=== PATIENT | female | born 1930 | race Caucasian/White ===

== ENCOUNTER 2017-01-16 09:59 | Day surgery (SDC) | payer OTHER, MEDICAID ==
[2017-01-16] MEDS ORDERED: D5 LR 1000 ML 1,000 ML IV ONE (10:20)
[2017-01-16] MEDS ORDERED: DIPRIVAN VIAL 20 ML ONE (11:31)
[2017-01-16 12:29] VITALS: BP 124/61
== END 2017-01-16 12:15 | disposition home or self-care (01) ==
LOC: SURG1 09:59
PROVIDERS: ATTEND Internal Medicine Gastroenterology
PROC: 0D757ZZ Dilation of Esophagus, Via Natural or Artificial Opening (ICD-10-PCS; principal; 2017-01-16 13:00)
PROC: 0DJ08ZZ Inspection of Upper Intestinal Tract, Via Natural or Artificial Opening Endoscopic (ICD-10-PCS; principal; 2017-01-16 13:00)
PROC: 0DB68ZX Excision of Stomach, Via Natural or Artificial Opening Endoscopic, Diagnostic (ICD-10-PCS; principal; 2017-01-16 13:00)
PROC: 0DB88ZX Excision of Small Intestine, Via Natural or Artificial Opening Endoscopic, Diagnostic (ICD-10-PCS; principal; 2017-01-16 13:00)
DX: R13.19 Other dysphagia (principal); R10.13 Epigastric pain; R19.7 Diarrhea, unspecified; R07.89 Other chest pain; K22.4 Dyskinesia of esophagus; K20.8 Other esophagitis; K22.2 Esophageal obstruction; K44.9 Diaphragmatic hernia without obstruction or gangrene; Z87.19 Personal history of other diseases of the digestive system; K25.9 Gastric ulcer, unspecified as acute or chronic, without hemorrhage or perforation
CPT/HCPCS: A4217; J3490; J7120

== ENCOUNTER 2017-10-16 14:14 | Inpatient (IN) | payer OTHER, MEDICAID ==
[2017-10-16 14:20] VITALS: BMI 22.4
[2017-10-16] MEDS ORDERED: MORPHINE SULFATE INJ 2 MG INJ IVP ONE (15:24)
[2017-10-16] MEDS ORDERED: ZOFRAN INJ 4 MG VIAL IVP ONE (15:25)
[2017-10-16] MEDS ORDERED: ZOFRAN INJ 4 MG VIAL ONE (15:42)
[2017-10-16] MEDS ORDERED: MORPHINE SULFATE INJ 2 MG INJ ONE (15:42)
--- NOTE | 2017-10-16 16:22 | DR.FBACK ---
HPI - Time Seen Time seen: 15:40 - PCP Primary Care Physician: NALLELY - HPI Comment HPI Comment: tripped on a piece of uneven concrete at home and fell onto her lower back. Now with low back pain, pt states pain is sufficient to make her nauseous - Complaint Chief Complaint:: PT. FELL AT HOME AND NOW C/O LOWER BACK PAIN AND NAUSEA. - Source History Provided: Patient - Mode of Arrival Mode of Arrival: Wheelchair - Timing Onset of Chief Complaint: 10/16/17 - Duration Duration: Since Onset - Location Back Pain Location: BACK, Lumbar Radiation To: None - Severity Severity: Moderate - Quality Quality: Sharp - Context Onset: Fall Circumstance: Tripped History of: Urolithiasis - Modifying Factors Worsened By: Movement - Associated Signs and Symptoms Back Pain Symptoms: Nausea Numbness: None Weakness: None PMH - PMH Past Medical History: Yes Past Medical History: Coronary Artery Disease, Dyslipidemia, GERD, Hypertension , Hypothyroidism, PUD Past Surgical History: Yes Surgical History: Bowel Resection, CABG/Valve Surgery, Cholecystectomy, 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, Hysterectomy, Thyroidectomy, Lithotripsy, Other - Family History History of Family Medical Conditions: Yes Family Medical History: Cancer, Hypertension - Social History Does patient currently use any type of tobacco product: No Have you used tobacco products in the last 12 months: No Type of Tobacco Use: None Does any household member use tobacco: No Alcohol Use: None Do you use any recreational Drugs:: No Lives With: Alone Lives Where: Home - infectious screening In the last 2 months have you had wt loss of >10#?: NO Have you had fever, night sweats or hemotysis?: No Have you traveled outside the country in the last 6 months?: No Isolation: Standard ROS - Review of Systems Constitutional: No Symptoms Reported Eyes: No Symptoms Reported ENTM: No Symptoms Reported Respiratoy: No Symptoms Reported Cardiovascular: No Symptoms Reported Gastrointestinal/Abdominal: Nausea Genitourinary: No Symptoms Reported Neurological: No Symptoms Reported Musculoskeletal: Back Pain Integumentary: No Symptoms Reported Hematologic/Lymphatic: No Symptoms Reported Endocrine: No Symptoms Reported Psychiatric: No Symptoms Reported All Other Systems: Reviewed and Negative PE - Vitals Vital Signs: Temp Pulse Pulse Resp BP BP Pulse Ox 10/16/17 15:16 45 L 17 169/66 98 10/16/17 14:14 97.3 F L 43 L 17 139/60 97 01/16/17 12:10 124/61 08/17/15 12:00 168/71 - General Limitations: No Limitations General Appearance: Alert, In No Apparent Distress. negative: Appears Intoxicated, Anxious, Lethargic, Obtunded, In Distress, Obese, Cachectic - Head Head Exam: Normal Inspection - Eyes Eye exam: Normal Appearance - Respiratory Respiratory Exam: Normal Lung Sounds Bilat. negative: Accessory Muscle Use, Chest Wall Tenderness Respiratory Exam: Bilateral Clear to Auscultation - Cardiovascular Cardiovascular Exam: Regular Rate, Normal Rhythm, Bradycardia, Other (sinus rafael on EKG) - Abdominal Exam Abdominal Exam: Normal Inspection, Normal Bowel Sounds, Soft. negative: Tenderness, Guarding, Rebound - Extremities Extremities Exam: Normal Inspection, Full ROM, Normal Capillary Refill. negative: Tenderness, Edema, Joint Swelling - Back Back Exam: Tenderness, Other (tender to palp in L3 area, no visible bruising, no palp bony deformity, no palpable muscle spasm) - Neurological Neurological Exam: Alert, Oriented X3 - Psychiatric Psychiatric Exam: Normal Affect, Normal Mood ROR - XRAY XRAY Interpreted by: Radiologist XRAY Findings: Lspine CT shows acute L1 comp fx w/25-50% height loss - Discharge Plan Condition: Stable - Follow ups/Referrals Follow ups/Referrals: Hernandez Goldman [Primary Care Provider] - 3 days - Instructions
--- NOTE | 2017-10-16 16:24 | CT ---
CT LUMBAR SPINE WITHOUT CLINICAL HISTORY: 87-year-old female status post fall with low back pain and nausea. COMPARISON: None. TECHNIQUE: Multiple, noncontrasted axial CT images were obtained from the thoracolumbar junction to the sacrum and reconstructed in the sagittal and coronal planes. FINDINGS: The most caudad, fully-formed intervertebral disc will be labeled L5-S1 for the purpose of this dictation. There is a normal lumbar lordosis. Acute compression fracture superior endplate L1 wi th mild retropulsion of the fracture fragments without central canal or neural foraminal stenosis. 25 -50% height loss is present. No CT evidence of epidural or subdural hematoma. The posterior elements are normal in appearance and alignment. Multilevel disc degeneration and spondyloarthropathy describe d below. T11-T12: Disc bulge and mild facet arthropathy without central canal or neural foraminal stenosis. T12-L1: Superior endplate compression fracture superimposed upon disc bulge and facet arthropathy wit h central canal measuring 12 mm. No neural foraminal stenosis. L1-L2: Disc bulge with mild facet arthropathy without central canal or neural foraminal stenosis. L2-L3: Near-complete loss of disc space with vacuum disc phenomenon and endplate sclerosis with subch ondral cystic change. Severe facet arthropathy. Central canal measures 11 mm. Mild bilateral neural f oraminal stenosis. L3-L4: Loss of disc space with vacuum disc phenomenon. Severe facet arthropathy. Central canal measur es 8.2 mm. Udya-tt-[id number] bilateral neural foraminal stenosis. L4-L5: Large disc bulge with severe facet arthropathy with central canal measuring 9.9 mm. Mild-to-mo derate bilateral neural foraminal stenosis. L5-S1: Subtle degenerative anterolisthesis with disc bulge and severe facet arthropathy without centr al canal or neural foraminal stenosis. Multiple right renal pelvic stones, the largest measuring 4 mm without evidence of hydroureteronephro sis. Small 7 mm hyperdense cortically based right renal cyst. Mild bilateral renal atrophy with perin ephric stranding and trace right perinephric fluid with scattered left perinephric fluid and simple 1 .8 x 2.5 cm left perinephric fluid collection. Severe calcific atherosclerotic disease of the aorta a nd its branches. IMPRESSION: 1. Acute superior endplate compression fracture L1 with 25-50% height loss and mild retropulsion of t he fracture fragments without central canal or neural foraminal stenosis. 2. Multilevel disc degeneration and spondyloarthropathy as described. 3. Bilateral renal atrophy with nonobstructing right renal stones and hyperdense right renal cysts wi th bilateral perinephric stranding/trace fluid with small left perinephric fluid collection. Consider further evaluation with ultrasound if not previously performed. Reported By:
[2017-10-16] MEDS ORDERED: MORPHINE SULFATE INJ 2 MG INJ IVP PRN (17:55)
[2017-10-16 19:25] LABS: BASOPHILS % (AUTO) 0.4 % (0.2-1.0); EOSINOPHILS % (AUTO) 0.1 % (0.9-2.9); HEMATOCRIT 38.6 % (36.0-47.0); HEMOGLOBIN 13.1 g/dL (12.0-16.0); LYMPHOCYTES # (AUTO) 1.1 X10^3/uL (1.3-2.9); MEAN CORPUSCULAR HEMOGLOBIN 30.3 pg (27.0-34.0); MEAN CORPUSCULAR HGB CONC 33.9 g/dL (33.0-35.0); MEAN CORPUSCULAR VOLUME 89.3 fL (80.0-100.0); MEAN PLATELET VOLUME 8.3 fL (7.4-11.0); MONOCYTES # (AUTO) 0.4 x10^3/uL (0.3-0.8); MONOCYTES % (AUTO) 4.4 % (0.0-13.0); NEUTROPHILS # (AUTO) 7.8 x10^3/uL (2.2-4.8); NEUTROPHILS % (AUTO) 83.1 % (42.0-75.0); PLATELET COUNT 173 X10^3/uL (150.0-450.0); RED BLOOD COUNT 4.32 X10^6/uL (3.5-5.4); RED CELL DISTRIBUTION WIDTH 13.1 % (11.6-16.5); WHITE BLOOD COUNT 9.4 X10^3/uL (3.6-10.0)
[2017-10-16 19:51] LABS: ALANINE AMINOTRANSFERASE 19 Units/L (12-78); ALBUMIN 3.6 g/dL (3.4-5.0); ALKALINE PHOSPHATASE 48 Units/L (46-116); ASPARTATE AMINO TRANSFERASE 26 Units/L (15-37); BLOOD UREA NITROGEN 36 mg/dL (7-18); CALCIUM 9.8 mg/dL (8.5-10.1); CARBON DIOXIDE 27.2 mmol/L (21-32); CHLORIDE 108 mmol/L (98-107); COR NA(FOR HYPERGLY) 142 mmol/L (136-145); CREATININE 1.87 mg/dL (0.55-1.02); SODIUM 142 mmol/L (136-145); TOTAL PROTEIN 7.4 g/dL (6.4-8.2); eGFR BLACK RACES 33 (>60); eGFR NON BLACK RACES 27 (>60)
[2017-10-17 05:23] LABS: BASOPHILS % (AUTO) 0.6 % (0.2-1.0); EOSINOPHILS # (AUTO) 0.2 x10^3/uL (0.0-0.2); EOSINOPHILS % (AUTO) 2.6 % (0.9-2.9); HEMATOCRIT 33.5 % (36.0-47.0); HEMOGLOBIN 11.5 g/dL (12.0-16.0); LYMPHOCYTES # (AUTO) 1.9 X10^3/uL (1.3-2.9); LYMPHOCYTES % (AUTO) 23.8 % (21.0-51.0); MEAN CORPUSCULAR HEMOGLOBIN 30.5 pg (27.0-34.0); MEAN CORPUSCULAR HGB CONC 34.3 g/dL (33.0-35.0); MEAN CORPUSCULAR VOLUME 88.9 fL (80.0-100.0); MEAN PLATELET VOLUME 8.8 fL (7.4-11.0); MONOCYTES # (AUTO) 0.8 x10^3/uL (0.3-0.8); MONOCYTES % (AUTO) 9.8 % (0.0-13.0); NEUTROPHILS # (AUTO) 5.1 x10^3/uL (2.2-4.8); NEUTROPHILS % (AUTO) 63.2 % (42.0-75.0); PLATELET COUNT 148 X10^3/uL (150.0-450.0); RED BLOOD COUNT 3.77 X10^6/uL (3.5-5.4); RED CELL DISTRIBUTION WIDTH 13.1 % (11.6-16.5); WHITE BLOOD COUNT 8.1 X10^3/uL (3.6-10.0)
[2017-10-17 05:42] LABS: ALANINE AMINOTRANSFERASE 15 Units/L (12-78); ALBUMIN 2.9 g/dL (3.4-5.0); ALKALINE PHOSPHATASE 35 Units/L (46-116); ASPARTATE AMINO TRANSFERASE 22 Units/L (15-37); BLOOD UREA NITROGEN 39 mg/dL (7-18); CALCIUM 9.2 mg/dL (8.5-10.1); CARBON DIOXIDE 26.5 mmol/L (21-32); CHLORIDE 110 mmol/L (98-107); COR CA(FOR HYPOALB) 10.1 mg/dL (8.5-10.1); CREATININE 2.02 mg/dL (0.55-1.02); SODIUM 143 mmol/L (136-145); TOTAL PROTEIN 6.2 g/dL (6.4-8.2); eGFR BLACK RACES 30 (>60); eGFR NON BLACK RACES 25 (>60)
[2017-10-17] MEDS: ZOFRAN INJ 4 MG VIAL IVP PRN ×2 (09:42→20:07)
--- NOTE | 2017-10-17 11:43 | DR.H&P ---
H&P - History & Physical for Day of: H&P Date: 10/16/17 - Chief Complaint Chief Complaint: lower back pain - Allergies Allergies/Adverse Reactions: Allergies Allergy/AdvReac Type Severity Reaction Status Date / Time hydralazine [From Apresoline] Allergy Verified 10/16/17 17:54 metoclopramide [From Reglan] Allergy Verified 10/16/17 17:54 Penicillins Allergy Verified 10/16/17 17:54 pregabalin [From Lyrica] Allergy Verified 10/16/17 17:54 - History of Present Illness History of Present Illness: is a 87 year old patient of ours who presented to the emergency room with complaints of low back pain and nausea following a fall at home. Patient reports that she tripped on a piece of uneven concrete and fell onto her lower back. On examination, tenderness noted on palpation at L3. She is unable to ambulate well or move lower extremities well while in bed without moderate pain. On arrival, vitals were 97.3, 43, 17, 97%RA , 139/60. A lumbar spine CT was obtained. It reported Lumbar Spine CT: Acute superior endplate compression fracture L1 with 25-50% height loss and mild retropulsion of the fracture fragments without central canal or neural foraminal stenosis. Multilevel disc degeneration and spondyloarthropathy as described. Bilateral renal atrophy with non obstruction right renal stones and hyperdense right renal cysts with bilateral perinephric stranding/trace fluid with small left perinephric fluid collection. Consider further evaluation with ultrasound if not previously performed. Labs were obtained. Abnormal lab values include the following: Chloride 108, BUN 36, Creatinine 1.87, GFR(AA) 33, GFR( non) 27, Glucose 115, A/G ratio 0.9. EKG reported: Sinus bradycardia. Heart rate =46. She was given morphine in the ER with only slight improvement in pain noted. We spoke with regarding findings. He plans to consult with patient. We admitted patient for further evaluation and pain control. We plan to follow up with AM labs and continue to monitor patient. - Past Medical History Past Medical History: Coronary Artery Disease, Dyslipidemia, GERD, Hypertension , Hypothyroidism, PUD - Past Surgical History Surgical History: Bowel Resection, CABG/Valve Surgery, Cholecystectomy, Hysterectomy, Ortho Surgery - Family History Family Medical History: Coronary Artery Disease, Hypertension - Social History Does patient currently use any type of tobacco product: No Have you used tobacco products in the last 12 months: No Type of Tobacco Use: None Does any household member use tobacco: No Alcohol Use: None Drug Use: None - Medications Home Medications: Fenofibrate [TRICOR 48 MG *] 1 tab PO HS 10/16/17 [History Confirmed 10/16/17] Gabapentin [NEURONTIN CAP 100 MG *] 1 cap PO HS PRN 10/16/17 [History Confirmed 10/16/17] Pantoprazole Sodium 40 mg [PROTONIX 40 MG *] 1 tab PO DAILY 10/16/17 [History Confirmed 10/16/17] - Review of Systems Constitutional: Weakness Eyes: No Symptoms Reported. denies: See HPI, Pain, Vision Change, Conjunctivae Inflammation, Eyelid Inflammation, Redness, Other ENT: No Symptoms Reported. denies: See HPI, Ear Pain, Ear Discharge, Nose Pain , Nose Discharge, Nose Congestion, Mouth Pain, Mouth Swelling, Throat Pain, Throat Swelling, Other Respiratory: No Symptoms Reported. denies: See HPI, Cough, Dry, Shortness of Breath, Hemoptysis, SOB with Excertion, Pleuritic Pain, Sputum, Wheezing, Other Cardiovascular: No Symptoms Reported. denies: Chest Pain, See HPI, Palpitations , Orthopnea, Paroxysmal Noc. Dyspnea, Edema, Light Headedness, Other Gastrointestinal: No Symptoms Reported. denies: See HPI, Nausea, Vomiting, Abdominal Pain, Diarrhea, Constipation, Melena, Hematochezia, Other Genitourinary: No Symptoms Reported. denies: See HPI, Dysuria, Frequency, Incontinence, Hematuria, Retention, Other Musculoskeletal: Back Pain Skin: No Symptoms Reported. denies: See HPI, Rash, Lesions, Jaundice, Bruising , Wound, Ecchymosis, Other Neurological: Weakness - Physical Exam Vital Signs: Temperature 97.7 F Pulse Rate [Apical] 46 Pulse Rate 43 Respiratory Rate 14 Blood Pressure [Left Arm] 140/59 Blood Pressure [Right Arm] 189/77 Blood Pressure 139/60 O2 Sat by Pulse Oximetry 97 Oriented: Normal Eyes: Normal. negative: Blurred Vision, Diplopia, Discharge, Pain, Redness, Photophobia, Other Ear: Normal. negative: Right, Left, Swelling, Ecchymosis, Hemotypanum, Abrasion , Laceration Nose: Normal. negative: Injected, Discharge, Blood, Other Throat: Normal. negative: Tonsillar Hypertrophy, Red, Exudate, Dry, Other Respiratory: Clear Throughout Cardiovascular: Normal. negative: Tachycardia, Bradycardia, Irregular, S3, S4, Systolic, Diastolic, Murmur, Edema, Other : Normal. negative: Dysuria, Hematuria, Frequency, Discharge, Testicular Pain , Bleeding, , Other Auscultation: Bowel Sounds: Normal Palpation: Normal Tenderness: Normal Musculoskeletal: Back:Lumbar, Tender, Instability Psychiatric: Normal Mood Description: Calm Affect: Normal - Assessment/Plan (1) Compression fracture of first lumbar vertebra Qualifiers: Encounter type: initial encounter Fracture type: closed Qualified Code(s) : S32.010A - Wedge compression fracture of first lumbar vertebra, initial encounter for closed fracture Status: Acute Plan: ORTHOPEDIC CONSULT, PAIN CONTROL WITH IV PAIN MEDICATIONS, CONTINUE TO MONITOR
[2017-10-17] MEDS: NS 1000 ML 1,000 ML IV SCH (15:00)
[2017-10-17] MEDS: MORPHINE SULFATE INJ 2 MG INJ IVP PRN ×2 (15:36→20:07)
[2017-10-17] MEDS ORDERED: ANTIVERT TAB 25 MG PO PRN (20:12)
[2017-10-17] MEDS ORDERED: NEURONTIN CAP 100 MG PO PRN (20:12)
[2017-10-17] MEDS ORDERED: ALENDRONATE SODIUM PO SCH (20:15)
[2017-10-17] MEDS ORDERED: METOPROLOL TARTRATE 12.5 MG PO SCH (21:00)
[2017-10-17] MEDS ORDERED: CALCIUM CARBONATE CHOLECALCIFE PO SCH (21:00)
[2017-10-17] MEDS ORDERED: PAROXETINE HCL 5 MG PO SCH (21:00)
[2017-10-17] MEDS: LOPRESSOR TAB 25 MG PO SCH (21:55)
[2017-10-17] MEDS: PHENERGAN TAB 25 MG PO PRN (21:56)
[2017-10-17] MEDS: TRICOR TAB 48 MG PO SCH (21:56)
[2017-10-17] MEDS: TAB-A-VITE PO SCH (21:57)
[2017-10-17] MEDS: CRESTOR TAB 10 MG PO SCH (21:57)
[2017-10-17] MEDS: SYNTHROID 50 mcg TAB PO SCH (21:57)
[2017-10-17] MEDS: PAXIL PO SCH (21:58)
[2017-10-17] MEDS: PROTONIX TAB 40 MG PO SCH (21:59)
[2017-10-18] MEDS: NS 1000 ML 1,000 ML IV SCH ×2 (04:52→13:31)
[2017-10-18] MEDS: MORPHINE SULFATE INJ 2 MG INJ IVP PRN ×3 (04:52→21:31)
[2017-10-18] MEDS: ZOFRAN INJ 4 MG VIAL IVP PRN ×2 (04:52→16:03)
[2017-10-18] MEDS: SYNTHROID 50 mcg TAB PO SCH (06:16)
[2017-10-18 06:18] LABS: ALANINE AMINOTRANSFERASE 21 Units/L (12-78); ALBUMIN 2.6 g/dL (3.4-5.0); ALKALINE PHOSPHATASE 30 Units/L (46-116); ASPARTATE AMINO TRANSFERASE 25 Units/L (15-37); BLOOD UREA NITROGEN 37 mg/dL (7-18); CALCIUM 8.5 mg/dL (8.5-10.1); CARBON DIOXIDE 26.6 mmol/L (21-32); CHLORIDE 108 mmol/L (98-107); COR CA(FOR HYPOALB) 9.6 mg/dL (8.5-10.1); CREATININE 1.78 mg/dL (0.55-1.02); SODIUM 141 mmol/L (136-145); TOTAL PROTEIN 5.9 g/dL (6.4-8.2); eGFR BLACK RACES 35 (>60); eGFR NON BLACK RACES 29 (>60)
[2017-10-18 06:54] LABS: BASOPHILS % (AUTO) 0.5 % (0.2-1.0); EOSINOPHILS # (AUTO) 0.3 x10^3/uL (0.0-0.2); EOSINOPHILS % (AUTO) 3.7 % (0.9-2.9); HEMATOCRIT 32.9 % (36.0-47.0); HEMOGLOBIN 11.2 g/dL (12.0-16.0); LYMPHOCYTES # (AUTO) 1.6 X10^3/uL (1.3-2.9); LYMPHOCYTES % (AUTO) 22.6 % (21.0-51.0); MEAN CORPUSCULAR HEMOGLOBIN 30.5 pg (27.0-34.0); MEAN CORPUSCULAR VOLUME 89.8 fL (80.0-100.0); MEAN PLATELET VOLUME 9.7 fL (7.4-11.0); MONOCYTES # (AUTO) 0.8 x10^3/uL (0.3-0.8); MONOCYTES % (AUTO) 11.1 % (0.0-13.0); NEUTROPHILS # (AUTO) 4.3 x10^3/uL (2.2-4.8); NEUTROPHILS % (AUTO) 62.1 % (42.0-75.0); PLATELET COUNT 118 X10^3/uL (150.0-450.0); RED BLOOD COUNT 3.67 X10^6/uL (3.5-5.4); RED CELL DISTRIBUTION WIDTH 12.6 % (11.6-16.5)
[2017-10-18] MEDS: TAB-A-VITE PO SCH (08:37)
[2017-10-18] MEDS: LOPRESSOR TAB 25 MG PO SCH ×2 (08:37→21:31)
[2017-10-18] MEDS: VITAMIN D3 PO SCH (08:37)
[2017-10-18] MEDS: OSCAL+D or CALTRATE+D PO SCH ×2 (08:37→21:32)
[2017-10-18] MEDS: PROTONIX TAB 40 MG PO SCH (08:37)
[2017-10-18] MEDS ORDERED: CHOLECALCIFEROL PO SCH (09:00)
[2017-10-18] MEDS: B COMPLEX VITAMINS PO SCH (09:50)
[2017-10-18] MEDS: PHENERGAN TAB 25 MG PO PRN (21:31)
[2017-10-18] MEDS: TRICOR TAB 48 MG PO SCH (21:32)
[2017-10-18] MEDS: CRESTOR TAB 10 MG PO SCH (21:32)
[2017-10-18] MEDS: PAXIL PO SCH (21:32)
[2017-10-19] MEDS: NS 1000 ML 1,000 ML IV SCH ×3 (03:40→15:21)
[2017-10-19 05:33] LABS: BASOPHILS # (AUTO) 0.1 X10^3/uL (0.0-0.1); BASOPHILS % (AUTO) 0.9 % (0.2-1.0); EOSINOPHILS # (AUTO) 0.4 x10^3/uL (0.0-0.2); EOSINOPHILS % (AUTO) 5.4 % (0.9-2.9); HEMATOCRIT 31.9 % (36.0-47.0); HEMOGLOBIN 11.2 g/dL (12.0-16.0); LYMPHOCYTES # (AUTO) 1.7 X10^3/uL (1.3-2.9); LYMPHOCYTES % (AUTO) 25.1 % (21.0-51.0); MEAN CORPUSCULAR HEMOGLOBIN 30.8 pg (27.0-34.0); MEAN CORPUSCULAR HGB CONC 34.9 g/dL (33.0-35.0); MEAN CORPUSCULAR VOLUME 88.2 fL (80.0-100.0); MEAN PLATELET VOLUME 9.3 fL (7.4-11.0); MONOCYTES # (AUTO) 0.7 x10^3/uL (0.3-0.8); MONOCYTES % (AUTO) 10.5 % (0.0-13.0); NEUTROPHILS # (AUTO) 3.9 x10^3/uL (2.2-4.8); NEUTROPHILS % (AUTO) 58.1 % (42.0-75.0); PLATELET COUNT 136 X10^3/uL (150.0-450.0); RED BLOOD COUNT 3.62 X10^6/uL (3.5-5.4); RED CELL DISTRIBUTION WIDTH 12.8 % (11.6-16.5); WHITE BLOOD COUNT 6.7 X10^3/uL (3.6-10.0)
[2017-10-19 05:53] LABS: ALANINE AMINOTRANSFERASE 9 Units/L (12-78); ALBUMIN 2.3 g/dL (3.4-5.0); ALKALINE PHOSPHATASE 28 Units/L (46-116); ASPARTATE AMINO TRANSFERASE 22 Units/L (15-37); BLOOD UREA NITROGEN 36 mg/dL (7-18); CALCIUM 8.7 mg/dL (8.5-10.1); CARBON DIOXIDE 25.4 mmol/L (21-32); CHLORIDE 109 mmol/L (98-107); COR CA(FOR HYPOALB) 10.1 mg/dL (8.5-10.1); CREATININE 1.72 mg/dL (0.55-1.02); SODIUM 140 mmol/L (136-145); TOTAL PROTEIN 5.6 g/dL (6.4-8.2); eGFR BLACK RACES 36 (>60); eGFR NON BLACK RACES 30 (>60)
[2017-10-19] MEDS: SYNTHROID 50 mcg TAB PO SCH (06:54)
[2017-10-19] MEDS: VITAMIN D3 PO SCH (09:01)
[2017-10-19] MEDS: OSCAL+D or CALTRATE+D PO SCH ×2 (09:01→21:28)
[2017-10-19] MEDS: PROTONIX TAB 40 MG PO SCH (09:02)
[2017-10-19] MEDS: LOPRESSOR TAB 25 MG PO SCH ×2 (09:02→21:28)
[2017-10-19] MEDS: TAB-A-VITE PO SCH (09:02)
[2017-10-19] MEDS: B COMPLEX VITAMINS PO SCH (09:04)
--- NOTE | 2017-10-19 11:37 | DR.CONSULT ---
Consult - Consultation for Day of: Date: 11/07/17 - Chief Complaint Chief Complaint: severe low back pain. - Allergies Allergies/Adverse Reactions: Allergies Allergy/AdvReac Type Severity Reaction Status Date / Time hydralazine [From Apresoline] Allergy Verified 10/16/17 17:54 metoclopramide [From Reglan] Allergy Verified 10/16/17 17:54 Penicillins Allergy Verified 10/16/17 17:54 pregabalin [From Lyrica] Allergy Verified 10/16/17 17:54 - History of Present Illness History of Present Illness: Ms. Mishra 87 /F, had a fall at home nd landed on her back. injured her back and sustained a L1 compression fracture. - Past Medical History Past Medical History: Coronary Artery Disease, Dyslipidemia, GERD, Hypertension , Hypothyroidism, PUD - Past Surgical History Surgical History: Bowel Resection, CABG/Valve Surgery, Cholecystectomy, Hysterectomy, Ortho Surgery - Family History Family Medical History: Coronary Artery Disease, Hypertension - Social History Does patient currently use any type of tobacco product: No Have you used tobacco products in the last 12 months: No Type of Tobacco Use: None Does any household member use tobacco: No Alcohol Use: None Drug Use: None - Medications Home Medications: Fenofibrate [TRICOR 48 MG *] 1 tab PO HS 10/16/17 [History Confirmed 10/16/17] Gabapentin [NEURONTIN CAP 100 MG *] 1 cap PO HS PRN 10/16/17 [History Confirmed 10/16/17] Pantoprazole Sodium 40 mg [PROTONIX 40 MG *] 1 tab PO DAILY 10/16/17 [History Confirmed 10/16/17] - Physical Exam Vital Signs: Temperature 99.7 F Pulse Rate [Apical] 51 Pulse Rate 43 Respiratory Rate 20 Blood Pressure [Left Arm] 180/70 Blood Pressure [Right Arm] 189/77 Blood Pressure 139/60 O2 Sat by Pulse Oximetry 92 Musculoskeletal: Back:Lumbar, Tender - Plan Plan: L1 compression fracture kyphoplasty.
[2017-10-19] MEDS: ZOFRAN INJ 4 MG VIAL IVP PRN (16:10)
[2017-10-19] MEDS: MORPHINE SULFATE INJ 2 MG INJ IVP PRN (16:11)
[2017-10-19] MEDS: PAXIL PO SCH (21:28)
[2017-10-19] MEDS: CRESTOR TAB 10 MG PO SCH (21:28)
[2017-10-19] MEDS: TRICOR TAB 48 MG PO SCH (21:28)
[2017-10-20] MEDS: NS 1000 ML 1,000 ML IV SCH ×2 (04:55→17:09)
[2017-10-20] MEDS: SYNTHROID 50 mcg TAB PO SCH (06:12)
[2017-10-20 06:26] LABS: BASOPHILS % (AUTO) 0.8 % (0.2-1.0); EOSINOPHILS # (AUTO) 0.2 x10^3/uL (0.0-0.2); EOSINOPHILS % (AUTO) 4.1 % (0.9-2.9); HEMATOCRIT 32.1 % (36.0-47.0); HEMOGLOBIN 11.1 g/dL (12.0-16.0); LYMPHOCYTES # (AUTO) 1.6 X10^3/uL (1.3-2.9); LYMPHOCYTES % (AUTO) 28.6 % (21.0-51.0); MEAN CORPUSCULAR HEMOGLOBIN 30.7 pg (27.0-34.0); MEAN CORPUSCULAR HGB CONC 34.6 g/dL (33.0-35.0); MEAN CORPUSCULAR VOLUME 88.7 fL (80.0-100.0); MEAN PLATELET VOLUME 9.6 fL (7.4-11.0); MONOCYTES # (AUTO) 0.6 x10^3/uL (0.3-0.8); MONOCYTES % (AUTO) 11.4 % (0.0-13.0); NEUTROPHILS % (AUTO) 55.1 % (42.0-75.0); PLATELET COUNT 139 X10^3/uL (150.0-450.0); RED BLOOD COUNT 3.62 X10^6/uL (3.5-5.4); RED CELL DISTRIBUTION WIDTH 12.9 % (11.6-16.5); WHITE BLOOD COUNT 5.5 X10^3/uL (3.6-10.0)
[2017-10-20 06:50] LABS: ALANINE AMINOTRANSFERASE 12 Units/L (12-78); ALBUMIN 2.3 g/dL (3.4-5.0); ALKALINE PHOSPHATASE 26 Units/L (46-116); ASPARTATE AMINO TRANSFERASE 24 Units/L (15-37); BLOOD UREA NITROGEN 33 mg/dL (7-18); CALCIUM 8.6 mg/dL (8.5-10.1); CARBON DIOXIDE 26.9 mmol/L (21-32); CHLORIDE 107 mmol/L (98-107); CREATININE 1.58 mg/dL (0.55-1.02); SODIUM 142 mmol/L (136-145); TOTAL PROTEIN 5.6 g/dL (6.4-8.2); eGFR BLACK RACES 40 (>60); eGFR NON BLACK RACES 33 (>60)
[2017-10-20] MEDS: B COMPLEX VITAMINS PO SCH (09:49)
[2017-10-20] MEDS: LOPRESSOR TAB 25 MG PO SCH ×2 (09:49→20:39)
[2017-10-20] MEDS: PROTONIX TAB 40 MG PO SCH (10:00)
[2017-10-20] MEDS: TAB-A-VITE PO SCH (10:00)
[2017-10-20] MEDS: OSCAL+D or CALTRATE+D PO SCH ×2 (10:00→20:38)
--- NOTE | 2017-10-20 12:24 | PCM.PROG ---
Progress Note - Progress Note for Day of Date: 10/17/17 - Subjective Subjective: WAS ADMITTED WITH A COMPRESSION FRACTURE OF L1. SHE WAS ADMITTED FOR PAIN CONTROL AND AN ORTHOPEDIC CONSULT. TODAY, SHE IS ALERT AND ORIENTED, LYING IN BED ON MORNING ROUNDS. SHE CONTINUES WITH MODERATE BACK PAIN. SHE REPORTS THAT PAIN IS WORSE UPON MOVMENT. ON EXAMINATION, HEART IS NORMAL IN RHYTHM. SHE IS NOTED TO BE BRADYCARDIC WITH HR IN THE UPPER 40S. BILATERAL LUNGS ARE NOTED TO BE CLEAR TO AUSCULTATION. ABDOMEN IS ROUND, SOFT, AND NON-TENDER WITH NORMAL BOWEL SOUNDS NOTED IN ALL QUADRANTS. LUMBAR SPINE IS NOTED WITH MODERATE TENDERNESS ON EXAM. SHE REPORTS MODERATED PAIN WHEN ATTEMPTING TO AMBULATE OR MOVE AROUND IN BED. HER VITALS THIS MORNING ARE 97.7- 46-14-97%-140/59. LABS WERE OBTAINED. ABNORMAL LAB VALUES INCLUDE THE FOLLOWING : HGB 11.5, HCT 33.5, CHLORIDE 110, BUN 39, CREATININE 2.02, GFR 25, ALK PHOS 35 , TOTAL PROTEIN 6.2, ALBUMIN 2.9. TODAY, WE WILL START NORMAL SALINE AT 50ML/HR FOR ELEVATED RENAL FUNCTION. WE WILL ALSO START MORPHINE 2MG IV Q3H PRN FOR PAIN. OTHERWISE, WE WILL CONTINUE WITH CURRENT PLAN OF CARE. WILL CONSULT WITH PATIENT TODAY. WE PLAN TO FOLLOW UP WITH AM LABS AND CONTINUE TO MONITOR PATIENT. - Past Medical Family Social History Past Med/Fam/Surg Hx: No changes since H&P Allergies: Allergies hydralazine [From Apresoline] Allergy (Verified 10/16/17 17:54) metoclopramide [From Reglan] Allergy (Verified 10/16/17 17:54) Penicillins Allergy (Verified 10/16/17 17:54) pregabalin [From Lyrica] Allergy (Verified 10/16/17 17:54) - Review of Systems ROS: No change since H&P - Vital Signs and I&O's Vital Signs: Temperature 98.5 F Pulse Rate [Right Brachial] 54 Pulse Rate [Apical] 51 Pulse Rate 43 Respiratory Rate 20 Blood Pressure [Left Arm] 178/72 Blood Pressure [Right Arm] 189/77 Blood Pressure 139/60 O2 Sat by Pulse Oximetry 95 Intake and Output: Intake & Output 10/18/17 10/19/17 10/20/17 10/21/17 11:59 11:59 11:59 11:59 Intake Total 1580 1790 1645 Balance 1580 1790 1645 - Physical Exam Oriented: Normal Eyes: Normal. negative: Blurred Vision, Diplopia, Discharge, Pain, Redness, Photophobia, Other Ear: Normal. negative: Right, Left, Swelling, Ecchymosis, Hemotypanum, Abrasion , Laceration Nose: Normal. negative: Injected, Discharge, Blood, Other Throat: Normal. negative: Tonsillar Hypertrophy, Red, Exudate, Dry, Other Respiratory: Normal Cardiovascular: Normal. negative: Tachycardia, Bradycardia, Irregular, S3, S4, Systolic, Diastolic, Murmur, Edema, Other : Normal. negative: Dysuria, Hematuria, Frequency, Discharge, Testicular Pain , Bleeding, , Other Auscultation: Bowel Sounds: Normal Tenderness: Normal Skin: Normal Musculoskeletal: Back:Lumbar, Tender, Instability Psychiatric: Normal Mood Description: Calm Affect: Normal Speech Pattern: Clear, Appropriate - Laboratory and Diagnostics Result Diagrams: 10/20/17 05:15 10/20/17 05:15 Labs: Laboratory WBC 5.5 X10^3/uL (3.6-10.0) 10/20/17 05:15 RBC 3.62 X10^6/uL (3.5-5.4) 10/20/17 05:15 Hgb 11.1 g/dL (12.0-16.0) L 10/20/17 05:15 Hct 32.1 % (36.0-47.0) L 10/20/17 05:15 MCV 88.7 fL (80.0-100.0) 10/20/17 05:15 MCH 30.7 pg (27.0-34.0) 10/20/17 05:15 MCHC 34.6 g/dL (33.0-35.0) 10/20/17 05:15 RDW 12.9 % (11.6-16.5) 10/20/17 05:15 Plt Count 139 X10^3/uL (150.0-450.0) L 10/20/17 05:15 MPV 9.6 fL (7.4-11.0) 10/20/17 05:15 Neut % 55.1 % (42.0-75.0) 10/20/17 05:15 Lymph % 28.6 % (21.0-51.0) 10/20/17 05:15 [place] % 11.4 % (0.0-13.0) 10/20/17 05:15 Eos % 4.1 % (0.9-2.9) H 10/20/17 05:15 Baso % 0.8 % (0.2-1.0) 10/20/17 05:15 Neut # 3.0 x10^3/uL (2.2-4.8) 10/20/17 05:15 Lymph # 1.6 X10^3/uL (1.3-2.9) 10/20/17 05:15 [place] # 0.6 x10^3/uL (0.3-0.8) 10/20/17 05:15 Eos # 0.2 x10^3/uL (0.0-0.2) 10/20/17 05:15 Baso # 0.0 X10^3/uL (0.0-0.1) 10/20/17 05:15 Absolute Nucleated RBC 0.1 /100WBC 10/20/17 05:15 INR Target Range - 10/20/17 05:15 INR 1.27 (0.8-1.3) 10/20/17 05:15 Sodium 142 mmol/L (136-145) 10/20/17 05:15 Corrected Sodium TNP 10/20/17 05:15 Potassium 4.3 mmol/L (3.5-5.1) 10/20/17 05:15 Chloride 107 mmol/L (98-107) 10/20/17 05:15 Carbon Dioxide 26.9 mmol/L (21-32) 10/20/17 05:15 BUN 33 mg/dL (7-18) H 10/20/17 05:15 Creatinine 1.58 mg/dL (0.55-1.02) H 10/20/17 05:15 Est GFR (MDRD) Af Amer 40 (>60) L 10/20/17 05:15 Est GFR (MDRD) Non-Af 33 (>60) L 10/20/17 05:15 Glucose 96 mg/dL (65-99) 10/20/17 05:15 Calcium 8.6 mg/dL (8.5-10.1) 10/20/17 05:15 Corrected Calcium 10.0 mg/dL (8.5-10.1) 10/20/17 05:15 Total Bilirubin 0.40 mg/dL (0.2-1.0) 10/20/17 05:15 AST 24 Units/L (15-37) 10/20/17 05:15 ALT 12 Units/L (12-78) 10/20/17 05:15 Alkaline Phosphatase 26 Units/L (46-116) L 10/20/17 05:15 Total Protein 5.6 g/dL (6.4-8.2) L 10/20/17 05:15 Albumin 2.3 g/dL (3.4-5.0) L 10/20/17 05:15 Globulin 3.3 g/dL (2.5-4.5) 10/20/17 05:15 Albumin/Globulin Ratio 0.7 Ratio (1.1-2.1) L 10/20/17 05:15 - Plan (1) Compression fracture of first lumbar vertebra Status: Acute Qualifiers: Encounter type: initial encounter Fracture type: closed Qualified Code(s) : S32.010A - Wedge compression fracture of first lumbar vertebra, initial encounter for closed fracture Plan: ORTHOPEDIC CONSULT, PAIN CONTROL WITH IV PAIN MEDICATIONS, CONTINUE TO MONITOR
--- NOTE | 2017-10-20 14:10 | RAD ---
Examination: AP chest History: Preop Comparison 08/09/2015 Findings: Continued normal heart size, sternal wires, essentially clear lungs and pleural spaces. Lef t shoulder arthroplasty has been performed since prior study. Nonacute rib fracture deformities. Impression: Postsurgical findings, no acute findings. Reported By:
[2017-10-20] MEDS: MORPHINE SULFATE INJ 2 MG INJ IVP PRN ×2 (14:50→20:42)
[2017-10-20] MEDS: ZOFRAN INJ 4 MG VIAL IVP PRN (14:50)
[2017-10-20] MEDS: VITAMIN D3 PO SCH (15:04)
--- NOTE | 2017-10-20 20:20 | PCM.PROG ---
Progress Note - Progress Note for Day of Date: 10/18/17 - Subjective Subjective: WAS ADMITTED WITH A COMPRESSION FRACTURE OF L1. SHE WAS ADMITTED FOR PAIN CONTROL AND AN ORTHOPEDIC CONSULT. TODAY, SHE IS ALERT AND ORIENTED, LYING IN BED ON MORNING ROUNDS. SHE CONTINUES WITH MODERATE BACK PAIN. SHE REPORTS THAT PAIN IS WORSE WHEN AMBULATING OR MOVING. PATIENT WAS STARTED ON OXYGEN YESTERDAY VIA NASAL CANNULA AT 2L/MIN DUE TO OXYGEN SATURATIONS DROPPING INTO THE 80S. STAFF REPORTS THAT PATIENT IS AMBULATING IN ROOM WITH STANDBY ASSISTANCE AND USE OF THE WALKER. ON EXAMINATION, HEART IS NORMAL IN RHYTHM. SHE IS NOTED TO BE BRADYCARDIC WITH HR IN THE 50S. BILATERAL LUNGS ARE NOTED TO BE CLEAR TO AUSCULTATION. ABDOMEN IS ROUND, SOFT, AND NON- TENDER WITH NORMAL BOWEL SOUNDS NOTED IN ALL QUADRANTS. LUMBAR SPINE IS NOTED WITH MODERATE TENDERNESS ON EXAM. HER VITALS THIS MORNING ARE 99.0-52-20-95%-160 /69. LABS WERE OBTAINED. ABNORMAL LAB VALUES INCLUDE THE FOLLOWING: HGB 11.2, HCT 33.5, PLT COUNT 148, CHLORIDE 108, BUN 37, CREATININE 1.78, GFR 29, GLUCOSE 107, ALK PHOS 30, TOTAL PROTEIN 5.9, ALBUMIN 2.6. WE ARE AWAITING CONSULT WITH . WE WILL CONTINUE WITH CURRENT PLAN OF CARE. WE PLAN TO FOLLOW UP WITH AM LABS AND CONTINUE TO MONITOR PATIENT. - Past Medical Family Social History Past Med/Fam/Surg Hx: No changes since H&P Allergies: Allergies hydralazine [From Apresoline] Allergy (Verified 10/16/17 17:54) metoclopramide [From Reglan] Allergy (Verified 10/16/17 17:54) Penicillins Allergy (Verified 10/16/17 17:54) pregabalin [From Lyrica] Allergy (Verified 10/16/17 17:54) - Review of Systems ROS: No change since H&P - Vital Signs and I&O's Vital Signs: Temperature 98.8 F Pulse Rate [Right Brachial] 56 Pulse Rate [Apical] 51 Pulse Rate 43 Respiratory Rate 20 Blood Pressure [Left Arm] 175/72 Blood Pressure [Right Arm] 189/77 Blood Pressure 139/60 O2 Sat by Pulse Oximetry 94 Intake and Output: Intake & Output 10/18/17 10/19/17 10/20/1718 11:59 11:59 11:59 11:59 Intake Total 1580 1790 1645 880 Balance 1580 1790 1645 880 - Physical Exam Oriented: Normal Eyes: Normal. negative: Blurred Vision, Diplopia, Discharge, Pain, Redness, Photophobia, Other Ear: Normal. negative: Right, Left, Swelling, Ecchymosis, Hemotypanum, Abrasion , Laceration Nose: Normal. negative: Injected, Discharge, Blood, Other Throat: Normal. negative: Tonsillar Hypertrophy, Red, Exudate, Dry, Other Respiratory: Normal Cardiovascular: Normal. negative: Tachycardia, Bradycardia, Irregular, S3, S4, Systolic, Diastolic, Murmur, Edema, Other : Normal. negative: Dysuria, Hematuria, Frequency, Discharge, Testicular Pain , Bleeding, , Other Auscultation: Bowel Sounds: Normal Palpation: Normal Tenderness: Normal Skin: Normal Musculoskeletal: Back:Lumbar, Tender, Instability Psychiatric: Normal Mood Description: Calm Affect: Normal Speech Pattern: Clear, Appropriate - Laboratory and Diagnostics Result Diagrams: 10/20/17 05:15 10/20/17 05:15 Labs: Laboratory WBC 5.5 X10^3/uL (3.6-10.0) 10/20/17 05:15 RBC 3.62 X10^6/uL (3.5-5.4) 10/20/17 05:15 Hgb 11.1 g/dL (12.0-16.0) L 10/20/17 05:15 Hct 32.1 % (36.0-47.0) L 10/20/17 05:15 MCV 88.7 fL (80.0-100.0) 10/20/17 05:15 MCH 30.7 pg (27.0-34.0) 10/20/17 05:15 MCHC 34.6 g/dL (33.0-35.0) 10/20/17 05:15 RDW 12.9 % (11.6-16.5) 10/20/17 05:15 Plt Count 139 X10^3/uL (150.0-450.0) L 10/20/17 05:15 MPV 9.6 fL (7.4-11.0) 10/20/17 05:15 Neut % 55.1 % (42.0-75.0) 10/20/17 05:15 Lymph % 28.6 % (21.0-51.0) 10/20/17 05:15 [place] % 11.4 % (0.0-13.0) 10/20/17 05:15 Eos % 4.1 % (0.9-2.9) H 10/20/17 05:15 Baso % 0.8 % (0.2-1.0) 10/20/17 05:15 Neut # 3.0 x10^3/uL (2.2-4.8) 10/20/17 05:15 Lymph # 1.6 X10^3/uL (1.3-2.9) 10/20/17 05:15 [place] # 0.6 x10^3/uL (0.3-0.8) 10/20/17 05:15 Eos # 0.2 x10^3/uL (0.0-0.2) 10/20/17 05:15 Baso # 0.0 X10^3/uL (0.0-0.1) 10/20/17 05:15 Absolute Nucleated RBC 0.1 /100WBC 10/20/17 05:15 INR Target Range - 10/20/17 05:15 INR 1.27 (0.8-1.3) 10/20/17 05:15 Sodium 142 mmol/L (136-145) 10/20/17 05:15 Corrected Sodium TNP 10/20/17 05:15 Potassium 4.3 mmol/L (3.5-5.1) 10/20/17 05:15 Chloride 107 mmol/L (98-107) 10/20/17 05:15 Carbon Dioxide 26.9 mmol/L (21-32) 10/20/17 05:15 BUN 33 mg/dL (7-18) H 10/20/17 05:15 Creatinine 1.58 mg/dL (0.55-1.02) H 10/20/17 05:15 Est GFR (MDRD) Af Amer 40 (>60) L 10/20/17 05:15 Est GFR (MDRD) Non-Af 33 (>60) L 10/20/17 05:15 Glucose 96 mg/dL (65-99) 10/20/17 05:15 Calcium 8.6 mg/dL (8.5-10.1) 10/20/17 05:15 Corrected Calcium 10.0 mg/dL (8.5-10.1) 10/20/17 05:15 Total Bilirubin 0.40 mg/dL (0.2-1.0) 10/20/17 05:15 AST 24 Units/L (15-37) 10/20/17 05:15 ALT 12 Units/L (12-78) 10/20/17 05:15 Alkaline Phosphatase 26 Units/L (46-116) L 10/20/17 05:15 Total Protein 5.6 g/dL (6.4-8.2) L 10/20/17 05:15 Albumin 2.3 g/dL (3.4-5.0) L 10/20/17 05:15 Globulin 3.3 g/dL (2.5-4.5) 10/20/17 05:15 Albumin/Globulin Ratio 0.7 Ratio (1.1-2.1) L 10/20/17 05:15 - Plan (1) Compression fracture of first lumbar vertebra Status: Acute Qualifiers: Encounter type: initial encounter Fracture type: closed Qualified Code(s) : S32.010A - Wedge compression fracture of first lumbar vertebra, initial encounter for closed fracture Plan: ORTHOPEDIC CONSULT, PAIN CONTROL WITH IV PAIN MEDICATIONS, CONTINUE TO MONITOR (2) Depression Status: Chronic Qualifiers: Depression Type: major depressive disorder Major depression recurrence: recurrent Active/Remission status: remission status unspecified Qualified Code(s): F33.9 - Major depressive disorder, recurrent, unspecified Plan: CONTINUE PAXIL, CONTINUE TO MONITOR (3) Hyperlipidemia Status: Acute Qualifiers: Hyperlipidemia type: mixed hyperlipidemia Qualified Code(s): E78.2 - Mixed hyperlipidemia Plan: CONTINUE TRICOR, CONTINUE CRESTOR, CONTINUE TO MONITOR (4) GERD (gastroesophageal reflux disease) Status: Acute Qualifiers: Esophagitis presence: esophagitis presence not specified Qualified Code(s) : K21.9 - Gastro-esophageal reflux disease without esophagitis Plan: CONTINUE PROTONIX, CONTINUE TO MONITOR (5) Arthritis Status: Chronic Plan: CONTINUE NEURONTIN, CONTINUE TO MONITOR (6) Hypertension Status: Chronic Qualifiers: Hypertension type: essential hypertension Qualified Code(s): I10 - Essential (primary) hypertension Plan: CONTINUE LOPRESSOR, CONTINUE TO MONITOR (7) Hypothyroidism Status: Chronic Qualifiers: Hypothyroidism type: acquired Qualified Code(s): E03.9 - Hypothyroidism, unspecified Plan: CONTINUE SYNTHROID, CONTINUE TO MONITOR
[2017-10-20] MEDS: PAXIL PO SCH (20:38)
[2017-10-20] MEDS: CRESTOR TAB 10 MG PO SCH (20:38)
[2017-10-20] MEDS: TRICOR TAB 48 MG PO SCH (20:40)
[2017-10-21] MEDS: NS 1000 ML 1,000 ML IV SCH ×2 (03:13→05:48)
[2017-10-21] MEDS: SYNTHROID 50 mcg TAB PO SCH (06:04)
[2017-10-21 06:17] LABS: BASOPHILS % (AUTO) 0.8 % (0.2-1.0); EOSINOPHILS # (AUTO) 0.2 x10^3/uL (0.0-0.2); EOSINOPHILS % (AUTO) 4.6 % (0.9-2.9); HEMATOCRIT 31.7 % (36.0-47.0); HEMOGLOBIN 10.9 g/dL (12.0-16.0); LYMPHOCYTES # (AUTO) 1.2 X10^3/uL (1.3-2.9); MEAN CORPUSCULAR HEMOGLOBIN 30.3 pg (27.0-34.0); MEAN CORPUSCULAR HGB CONC 34.4 g/dL (33.0-35.0); MEAN CORPUSCULAR VOLUME 88.1 fL (80.0-100.0); MEAN PLATELET VOLUME 9.4 fL (7.4-11.0); MONOCYTES # (AUTO) 0.6 x10^3/uL (0.3-0.8); MONOCYTES % (AUTO) 11.3 % (0.0-13.0); NEUTROPHILS % (AUTO) 59.3 % (42.0-75.0); PLATELET COUNT 146 X10^3/uL (150.0-450.0); RED CELL DISTRIBUTION WIDTH 12.6 % (11.6-16.5)
[2017-10-21 06:41] LABS: ALANINE AMINOTRANSFERASE 11 Units/L (12-78); ALBUMIN 2.3 g/dL (3.4-5.0); ALKALINE PHOSPHATASE 29 Units/L (46-116); ASPARTATE AMINO TRANSFERASE 20 Units/L (15-37); BLOOD UREA NITROGEN 26 mg/dL (7-18); CALCIUM 8.4 mg/dL (8.5-10.1); CARBON DIOXIDE 26.1 mmol/L (21-32); CHLORIDE 109 mmol/L (98-107); COR CA(FOR HYPOALB) 9.8 mg/dL (8.5-10.1); CREATININE 1.48 mg/dL (0.55-1.02); SODIUM 141 mmol/L (136-145); TOTAL PROTEIN 5.6 g/dL (6.4-8.2); eGFR BLACK RACES 43 (>60); eGFR NON BLACK RACES 35 (>60)
[2017-10-21] MEDS: OSCAL+D or CALTRATE+D PO SCH ×2 (09:02→21:33)
[2017-10-21] MEDS: LOPRESSOR TAB 25 MG PO SCH ×2 (09:02→23:14)
[2017-10-21] MEDS: PROTONIX TAB 40 MG PO SCH (09:02)
[2017-10-21] MEDS: TAB-A-VITE PO SCH (09:03)
[2017-10-21] MEDS: VITAMIN D3 PO SCH (09:03)
[2017-10-21] MEDS: ZOFRAN INJ 4 MG VIAL IVP PRN (09:42)
[2017-10-21] MEDS ORDERED: NS 1000 ML 1,000 ML ONE (10:44)
[2017-10-21] MEDS ORDERED: KETALAR ONE (10:47)
[2017-10-21] MEDS ORDERED: NS 100 ML IV 100 ML IV ONE (10:50)
[2017-10-21] MEDS ORDERED: ANCEF VIAL 1 GM ONE (10:50)
[2017-10-21] MEDS ORDERED: MARCAINE 0.25% INJ ONE ×2 (10:54→11:37)
[2017-10-21] MEDS ORDERED: PERCOCET TAB 5/325 MG PO PRN (12:59)
[2017-10-21] MEDS ORDERED: PHENERGAN INJ 25 MG IVP PRN (13:07)
[2017-10-21] MEDS ORDERED: BENADRYL INJ 50 MG VIAL IVP PRN (13:07)
[2017-10-21] MEDS ORDERED: ZOFRAN INJ 4 MG VIAL IVP PRN (13:07)
[2017-10-21] MEDS ORDERED: REGLAN INJ 10 MG VIAL IVP PRN (13:07)
[2017-10-21] MEDS ORDERED: DILAUDID INJ IVP PRN (13:07)
--- NOTE | 2017-10-21 15:11 | OR.GENERIC ---
Post-Op Note Generic - Post-Op Note Operative Report: PRE-OP DIAGNOSIS: Osteoporosis, pathologic fractures L1 POST-OP DIAGNOSIS: Osteoporosis, pathologic fractures L1 PROCEDURE: 1. KYPHON Balloon Kyphoplasty at L1 Level Insertion of KYPHON HV-R bone cement under low pressure at L1 levels. 2. Bone biopsy. ANESTHESIA: mild sedation, local anesthesia COMPLICATIONS: None BLOOD LOSS: 10 cc approx. INDICATIONS: Ms. Mishra is a 87-year-old male who has had severe back pain that began after a fall and is debilitating. He has been unresponsive to nonoperative treatment modalities including bed rest and analgesics, braces. He presents with and is on medication therapy for, diabetes and hypertension. Radiographic imaging including CT confirms compression fracture of the thoracolumbar spine including L1. Based on these findings, we have decided to perform KYPHON Balloon Kyphoplasty on the L1 fractures. PROCEDURE: The patient was brought to the operating room and local sedation was performed. The patient was positioned prone on the Darrel table. The back was prepped and draped. The image intensifier (C-arm) was brought into position and the L1 pedicles were identified and marked with a skin marker. the skin was anesthetized with a needle and was followed with a spinal needle anesthetizing the tract as well as the periosteum.A transpedicular approach to the vertebral body was appropriate. An 11-gauge needle was advanced through the L1 pedicle to the junction of the pedicle and vertebral body on the right side. Positioning was confirmed on the AP and lateral plane. Following satisfactory placement of the needle, the stylet was removed.bone biopsy was obtained at this stage. Aspirated about 3 cc of blood as well as some tissue. It was repeated on the other side too. It was sent to pathology for histopathology for examination. A guide pin was inserted through the 11g to a point 3mm from the anterior cortex. AP and lateral images were taken to verify position and trajectory. Alongside of the guide pin a 1-cm paramedian incision was made. The needle was then removed leaving the guide pin in place. The osteointroducer was placed over the guide pin and advanced through the pedicle. Once I was at the junction of the pedicle and the vertebral body, a lateral image was taken to ensure that the cannula was positioned approximately 1cm past the vertebral body wall. Through the cannula, a drill was advanced into the vertebral body under fluoroscopic guidance toward the anterior cortex, creating a channel. The anterior cortex was probed with the guide pin to ensure no perforations in the anterior cortex. After completing the entry into the vertebral body, a 15-mm inflatable bone tamp was inserted through the cannula and advanced under fluoroscopic guidance into the vertebral body near the anterior cortex. The radiopaque marker bands on the bone tamp were identified using AP and lateral images. The above sequence of instrument placement was then repeated on the left side of the L1 vertebral body. Once both bone tamps were in position, they were inflated to 0.5 cc and 50 psi. Expansion of the bone tamps was done sequentially in increments of 0.25 to 0.5 cc of contrast, with careful attention being paid to the inflation pressures and balloon position. The inflation was monitored with AP and lateral imaging. The final balloon volume was 4 cc on the right side and 4 cc on the left. There was no breach of the lateral wall or anterior cortex of the vertebral body. Direct reduction of the fracture was achieved, end plate movement was noted and approximately 5 mm of height moravian was achieved. Under fluoroscopic imaging, and the use of the bone void fillers, internal fixation was achieved through a low-pressure injection of KYPHON HV-R bone cement. The cavity was filled with a total volume of 4 cc on the right side and 4 cc on the left side. Once the bone cement had hardened, the cannulas were then removed. Post-procedure, all incisions were closed with sutures. The patient was kept in the prone position for approximately 10 minutes post cement injection. He was then turned supine, monitored briefly and returned to the PACU. He was moving both her lower extremities at this time.
[2017-10-21] MEDS ORDERED: VERSED ONE (15:33)
[2017-10-21] MEDS ORDERED: DIPRIVAN VIAL ONE (15:33)
--- NOTE | 2017-10-21 16:42 | PCM.PROG ---
Progress Note - Progress Note for Day of Date: 10/19/17 - Subjective Subjective: WAS ADMITTED WITH A COMPRESSION FRACTURE OF L1. SHE WAS ADMITTED FOR PAIN CONTROL AND AN ORTHOPEDIC CONSULT. TODAY, SHE IS ALERT AND ORIENTED, LYING IN BED ON MORNING ROUNDS. SHE CONTINUES WITH MODERATE BACK PAIN THAT IS WORSE UPON MOVEMENT. ON EXAMINATION, HEART IS NORMAL IN RHYTHM. SHE IS NOTED TO BE BRADYCARDIC WITH HR IN THE 50S. BILATERAL LUNGS ARE NOTED TO BE CLEAR TO AUSCULTATION. ABDOMEN IS ROUND, SOFT, AND NON-TENDER WITH NORMAL BOWEL SOUNDS NOTED IN ALL QUADRANTS. LUMBAR SPINE IS NOTED WITH MODERATE TENDERNESS ON EXAM. HER VITALS THIS MORNING ARE 99.7-51-20-92%-180/70. SHE WAS NOTED WITH A TEMPERATURE OF 100.0 AT 0400. LABS WERE OBTAINED. ABNORMAL LAB VALUES INCLUDE THE FOLLOWING: HGB 11.2, HCT 31.9-PLT COUNT 136, CHLORIDE 109, BUN 36, CREATININE 1.72, ALT 9, ALK PHOS 28, TOTAL PROTEIN 5.6, ALBUMIN 2.3. CONSULTED WITH PATIENT AND PLANS TO TAKE TO THE OR FOR KYPHOPLASTY WHEN THE PATIENT IS AFEBRILE. WE WILL ORDER FOR A CHEST XRAY AND EKG TO BE OBTAINED IN THE MORNING FOR SURGICAL CLEARANCE. OTHERWISE, WE WILL CONTINUE WITH CURRENT PLAN OF CARE. WE PLAN TO FOLLOW UP WITH AM LABS AND CONTINUE TO MONITOR PATIENT. - Past Medical Family Social History Past Med/Fam/Surg Hx: No changes since H&P Allergies: Allergies hydralazine [From Apresoline] Allergy (Verified 10/16/17 17:54) metoclopramide [From Reglan] Allergy (Verified 10/16/17 17:54) Penicillins Allergy (Verified 10/16/17 17:54) pregabalin [From Lyrica] Allergy (Verified 10/16/17 17:54) - Review of Systems ROS: No change since H&P - Vital Signs and I&O's Vital Signs: Temperature 98.2 F Pulse Rate [Right Brachial] 51 Pulse Rate [Apical] 51 Pulse Rate 49 Respiratory Rate 18 Blood Pressure [Left Arm] 181/76 Blood Pressure [Right Arm] 189/77 Blood Pressure 179/77 O2 Sat by Pulse Oximetry 98 Intake and Output: Intake & Output 10/19/17 10/20/17 10/21/17 10/22/17 11:59 11:59 11:59 11:59 Intake Total 1790 1645 2080 0 Balance 17895 2080 0 - Physical Exam Oriented: Normal Eyes: Normal. negative: Blurred Vision, Diplopia, Discharge, Pain, Redness, Photophobia, Other Ear: Normal. negative: Right, Left, Swelling, Ecchymosis, Hemotypanum, Abrasion , Laceration Nose: Normal. negative: Injected, Discharge, Blood, Other Throat: Normal. negative: Tonsillar Hypertrophy, Red, Exudate, Dry, Other Respiratory: Normal Cardiovascular: Normal. negative: Tachycardia, Bradycardia, Irregular, S3, S4, Systolic, Diastolic, Murmur, Edema, Other : Normal. negative: Dysuria, Hematuria, Frequency, Discharge, Testicular Pain , Bleeding, , Other Auscultation: Bowel Sounds: Normal Palpation: Normal Tenderness: Normal Skin: Normal Musculoskeletal: Back:Lumbar, Tender, Instability Psychiatric: Normal Mood Description: Calm Affect: Normal Speech Pattern: Clear, Appropriate - Laboratory and Diagnostics Result Diagrams: 10/21/17 05:10 10/21/17 05:10 Labs: Laboratory WBC 5.0 X10^3/uL (3.6-10.0) 10/21/17 05:10 RBC 3.60 X10^6/uL (3.5-5.4) 10/21/17 05:10 Hgb 10.9 g/dL (12.0-16.0) L 10/21/17 05:10 Hct 31.7 % (36.0-47.0) L 10/21/17 05:10 MCV 88.1 fL (80.0-100.0) 10/21/17 05:10 MCH 30.3 pg (27.0-34.0) 10/21/17 05:10 MCHC 34.4 g/dL (33.0-35.0) 10/21/17 05:10 RDW 12.6 % (11.6-16.5) 10/21/17 05:10 Plt Count 146 X10^3/uL (150.0-450.0) L 10/21/17 05:10 MPV 9.4 fL (7.4-11.0) 10/21/17 05:10 Neut % 59.3 % (42.0-75.0) 10/21/17 05:10 Lymph % 24.0 % (21.0-51.0) 10/21/17 05:10 [place] % 11.3 % (0.0-13.0) 10/21/17 05:10 Eos % 4.6 % (0.9-2.9) H 10/21/17 05:10 Baso % 0.8 % (0.2-1.0) 10/21/17 05:10 Neut # 3.0 x10^3/uL (2.2-4.8) 10/21/17 05:10 Lymph # 1.2 X10^3/uL (1.3-2.9) L 10/21/17 05:10 [place] # 0.6 x10^3/uL (0.3-0.8) 10/21/17 05:10 Eos # 0.2 x10^3/uL (0.0-0.2) 10/21/17 05:10 Baso # 0.0 X10^3/uL (0.0-0.1) 10/21/17 05:10 Absolute Nucleated RBC 0.0 /100WBC 10/21/17 05:10 INR Target Range - 10/20/17 05:15 INR 1.27 (0.8-1.3) 10/20/17 05:15 Sodium 141 mmol/L (136-145) 10/21/17 05:10 Corrected Sodium TNP 10/21/17 05:10 Potassium 4.2 mmol/L (3.5-5.1) 10/21/17 05:10 Chloride 109 mmol/L (98-107) H 10/21/17 05:10 Carbon Dioxide 26.1 mmol/L (21-32) 10/21/17 05:10 BUN 26 mg/dL (7-18) H 10/21/17 05:10 Creatinine 1.48 mg/dL (0.55-1.02) H 10/21/17 05:10 Est GFR (MDRD) Af Amer 43 (>60) L 10/21/17 05:10 Est GFR (MDRD) Non-Af 35 (>60) L 10/21/17 05:10 Glucose 95 mg/dL (65-99) 10/21/17 05:10 Calcium 8.4 mg/dL (8.5-10.1) L 10/21/17 05:10 Corrected Calcium 9.8 mg/dL (8.5-10.1) 10/21/17 05:10 Total Bilirubin 0.30 mg/dL (0.2-1.0) 10/21/17 05:10 AST 20 Units/L (15-37) 10/21/17 05:10 ALT 11 Units/L (12-78) L 10/21/17 05:10 Alkaline Phosphatase 29 Units/L (46-116) L 10/21/17 05:10 Total Protein 5.6 g/dL (6.4-8.2) L 10/21/17 05:10 Albumin 2.3 g/dL (3.4-5.0) L 10/21/17 05:10 Globulin 3.3 g/dL (2.5-4.5) 10/21/17 05:10 Albumin/Globulin Ratio 0.7 Ratio (1.1-2.1) L 10/21/17 05:10 Tissue Pathology To follow 10/21/17 12:45 - Plan (1) Compression fracture of first lumbar vertebra Status: Acute Qualifiers: Encounter type: initial encounter Fracture type: closed Qualified Code(s) : S32.010A - Wedge compression fracture of first lumbar vertebra, initial encounter for closed fracture Plan: ORTHOPEDIC CONSULT, PAIN CONTROL WITH IV PAIN MEDICATIONS, CONTINUE TO MONITOR (2) Depression Status: Chronic Qualifiers: Depression Type: major depressive disorder Major depression recurrence: recurrent Active/Remission status: remission status unspecified Qualified Code(s): F33.9 - Major depressive disorder, recurrent, unspecified Plan: CONTINUE PAXIL, CONTINUE TO MONITOR (3) Hyperlipidemia Status: Acute Qualifiers: Hyperlipidemia type: mixed hyperlipidemia Qualified Code(s): E78.2 - Mixed hyperlipidemia Plan: CONTINUE TRICOR, CONTINUE CRESTOR, CONTINUE TO MONITOR (4) GERD (gastroesophageal reflux disease) Status: Acute Qualifiers: Esophagitis presence: esophagitis presence not specified Qualified Code(s) : K21.9 - Gastro-esophageal reflux disease without esophagitis Plan: CONTINUE PROTONIX, CONTINUE TO MONITOR (5) Arthritis Status: Chronic Plan: CONTINUE NEURONTIN, CONTINUE TO MONITOR (6) Hypertension Status: Chronic Qualifiers: Hypertension type: essential hypertension Qualified Code(s): I10 - Essential (primary) hypertension Plan: CONTINUE LOPRESSOR, CONTINUE TO MONITOR (7) Hypothyroidism Status: Chronic Qualifiers: Hypothyroidism type: acquired Qualified Code(s): E03.9 - Hypothyroidism, unspecified Plan: CONTINUE SYNTHROID, CONTINUE TO MONITOR
--- NOTE | 2017-10-21 17:08 | PCM.PROG ---
Progress Note - Progress Note for Day of Date: 10/20/17 - Subjective Subjective: WAS ADMITTED WITH A COMPRESSION FRACTURE OF L1. SHE WAS ADMITTED FOR PAIN CONTROL AND AN ORTHOPEDIC CONSULT. TODAY, SHE IS ALERT AND ORIENTED, LYING IN BED ON MORNING ROUNDS. SHE CONTINUES WITH MODERATE LOWER BACK PAIN. PATIENT HAS BEEN AMBULATING IN ROOM WITH ASSISTANCE. SHE REPORTS THAT PAIN CONTINUES TO BE WORSE UPON MOVMEMENT. ON EXAMINATION, HEART IS NORMAL IN RHYTHM. SHE IS NOTED TO BE BRADYCARDIC WITH HR IN THE 50S. BILATERAL LUNGS ARE NOTED TO BE CLEAR TO AUSCULTATION. ABDOMEN IS ROUND, SOFT, AND NON-TENDER WITH NORMAL BOWEL SOUNDS NOTED IN ALL QUADRANTS. LUMBAR SPINE IS NOTED WITH MODERATE TENDERNESS ON EXAM. HER VITALS THIS MORNING ARE 98.9-55-20-93%-197/85. SHE REMAINED AFEBRILE THROUGHOUT THE NIGHT. LABS WERE OBTAINED. ABNORMAL LAB VALUES INCLUDE THE FOLLOWING: HGB 11.1, HCT 32.1, PLT COUNT 139, BUN 33, CREATININE 1.58, ALK PHOS 26, TOTAL PROTEIN 5.6, ALBUMIN 2.3. A CHEST XRAY WAS OBTAINED TODAY. IT REPORTS CONTINUED NORMAL HEART SIZE. ESSENTIALLY CLEAR LUNGS AND PLEURAL SPACES. EKG REVEALED SINUS RHYTHM WITH HR IN THE 60S. PATIENT IS MEDICALLY CLEAR FOR KYPHOPLASTY. WE WILL ORDER WE WILL CONTINUE WITH CURRENT PLAN OF CARE. WE PLAN TO FOLLOW UP WITH AM LABS AND CONTINUE TO MONITOR PATIENT. - Past Medical Family Social History Past Med/Fam/Surg Hx: No changes since H&P Allergies: Allergies hydralazine [From Apresoline] Allergy (Verified 10/16/17 17:54) metoclopramide [From Reglan] Allergy (Verified 10/16/17 17:54) Penicillins Allergy (Verified 10/16/17 17:54) pregabalin [From Lyrica] Allergy (Verified 10/16/17 17:54) - Review of Systems ROS: No change since H&P - Vital Signs and I&O's Vital Signs: Temperature 98.2 F Pulse Rate [Right Brachial] 51 Pulse Rate [Apical] 51 Pulse Rate 49 Respiratory Rate 18 Blood Pressure [Left Arm] 181/76 Blood Pressure [Right Arm] 189/77 Blood Pressure 179/77 O2 Sat by Pulse Oximetry 98 Intake and Output: Intake & Output 10/19/17 10/20/17 10/21/1718 11:59 11:59 11:59 11:59 Intake Total 1790 1645 2080 0 Balance 1790 1645 2080 0 - Physical Exam Oriented: Normal Eyes: Normal. negative: Blurred Vision, Diplopia, Discharge, Pain, Redness, Photophobia, Other Ear: Normal. negative: Right, Left, Swelling, Ecchymosis, Hemotypanum, Abrasion , Laceration Nose: Normal. negative: Injected, Discharge, Blood, Other Throat: Normal. negative: Tonsillar Hypertrophy, Red, Exudate, Dry, Other Respiratory: Normal Cardiovascular: Normal. negative: Tachycardia, Bradycardia, Irregular, S3, S4, Systolic, Diastolic, Murmur, Edema, Other : Normal. negative: Dysuria, Hematuria, Frequency, Discharge, Testicular Pain , Bleeding, , Other Auscultation: Bowel Sounds: Normal Palpation: Normal Tenderness: Normal Skin: Normal Musculoskeletal: Back:Lumbar, Tender, Instability Psychiatric: Normal Mood Description: Calm Affect: Normal Speech Pattern: Clear, Appropriate - Laboratory and Diagnostics Result Diagrams: 10/21/17 05:10 10/21/17 05:10 Labs: Laboratory WBC 5.0 X10^3/uL (3.6-10.0) 10/21/17 05:10 RBC 3.60 X10^6/uL (3.5-5.4) 10/21/17 05:10 Hgb 10.9 g/dL (12.0-16.0) L 10/21/17 05:10 Hct 31.7 % (36.0-47.0) L 10/21/17 05:10 MCV 88.1 fL (80.0-100.0) 10/21/17 05:10 MCH 30.3 pg (27.0-34.0) 10/21/17 05:10 MCHC 34.4 g/dL (33.0-35.0) 10/21/17 05:10 RDW 12.6 % (11.6-16.5) 10/21/17 05:10 Plt Count 146 X10^3/uL (150.0-450.0) L 10/21/17 05:10 MPV 9.4 fL (7.4-11.0) 10/21/17 05:10 Neut % 59.3 % (42.0-75.0) 10/21/17 05:10 Lymph % 24.0 % (21.0-51.0) 10/21/17 05:10 [place] % 11.3 % (0.0-13.0) 10/21/17 05:10 Eos % 4.6 % (0.9-2.9) H 10/21/17 05:10 Baso % 0.8 % (0.2-1.0) 10/21/17 05:10 Neut # 3.0 x10^3/uL (2.2-4.8) 10/21/17 05:10 Lymph # 1.2 X10^3/uL (1.3-2.9) L 10/21/17 05:10 [place] # 0.6 x10^3/uL (0.3-0.8) 10/21/17 05:10 Eos # 0.2 x10^3/uL (0.0-0.2) 10/21/17 05:10 Baso # 0.0 X10^3/uL (0.0-0.1) 10/21/17 05:10 Absolute Nucleated RBC 0.0 /100WBC 10/21/17 05:10 INR Target Range - 10/20/17 05:15 INR 1.27 (0.8-1.3) 10/20/17 05:15 Sodium 141 mmol/L (136-145) 10/21/17 05:10 Corrected Sodium TNP 10/21/17 05:10 Potassium 4.2 mmol/L (3.5-5.1) 10/21/17 05:10 Chloride 109 mmol/L (98-107) H 10/21/17 05:10 Carbon Dioxide 26.1 mmol/L (21-32) 10/21/17 05:10 BUN 26 mg/dL (7-18) H 10/21/17 05:10 Creatinine 1.48 mg/dL (0.55-1.02) H 10/21/17 05:10 Est GFR (MDRD) Af Amer 43 (>60) L 10/21/17 05:10 Est GFR (MDRD) Non-Af 35 (>60) L 10/21/17 05:10 Glucose 95 mg/dL (65-99) 10/21/17 05:10 Calcium 8.4 mg/dL (8.5-10.1) L 10/21/17 05:10 Corrected Calcium 9.8 mg/dL (8.5-10.1) 10/21/17 05:10 Total Bilirubin 0.30 mg/dL (0.2-1.0) 10/21/17 05:10 AST 20 Units/L (15-37) 10/21/17 05:10 ALT 11 Units/L (12-78) L 10/21/17 05:10 Alkaline Phosphatase 29 Units/L (46-116) L 10/21/17 05:10 Total Protein 5.6 g/dL (6.4-8.2) L 10/21/17 05:10 Albumin 2.3 g/dL (3.4-5.0) L 10/21/17 05:10 Globulin 3.3 g/dL (2.5-4.5) 10/21/17 05:10 Albumin/Globulin Ratio 0.7 Ratio (1.1-2.1) L 10/21/17 05:10 Tissue Pathology To follow 10/21/17 12:45 - Plan (1) Compression fracture of first lumbar vertebra Status: Acute Qualifiers: Encounter type: initial encounter Fracture type: closed Qualified Code(s) : S32.010A - Wedge compression fracture of first lumbar vertebra, initial encounter for closed fracture Plan: ORTHOPEDIC CONSULT, PAIN CONTROL WITH IV PAIN MEDICATIONS, CONTINUE TO MONITOR (2) Depression Status: Chronic Qualifiers: Depression Type: major depressive disorder Major depression recurrence: recurrent Active/Remission status: remission status unspecified Qualified Code(s): F33.9 - Major depressive disorder, recurrent, unspecified Plan: CONTINUE PAXIL, CONTINUE TO MONITOR (3) Hyperlipidemia Status: Acute Qualifiers: Hyperlipidemia type: mixed hyperlipidemia Qualified Code(s): E78.2 - Mixed hyperlipidemia Plan: CONTINUE TRICOR, CONTINUE CRESTOR, CONTINUE TO MONITOR (4) GERD (gastroesophageal reflux disease) Status: Acute Qualifiers: Esophagitis presence: esophagitis presence not specified Qualified Code(s) : K21.9 - Gastro-esophageal reflux disease without esophagitis Plan: CONTINUE PROTONIX, CONTINUE TO MONITOR (5) Arthritis Status: Chronic Plan: CONTINUE NEURONTIN, CONTINUE TO MONITOR (6) Hypertension Status: Chronic Qualifiers: Hypertension type: essential hypertension Qualified Code(s): I10 - Essential (primary) hypertension Plan: CONTINUE LOPRESSOR, CONTINUE TO MONITOR (7) Hypothyroidism Status: Chronic Qualifiers: Hypothyroidism type: acquired Qualified Code(s): E03.9 - Hypothyroidism, unspecified Plan: CONTINUE SYNTHROID, CONTINUE TO MONITOR
[2017-10-21] MEDS: CRESTOR TAB 10 MG PO SCH (21:33)
[2017-10-21] MEDS: PAXIL PO SCH (21:33)
[2017-10-21] MEDS: TRICOR TAB 48 MG PO SCH (21:34)
[2017-10-21] MEDS: MORPHINE SULFATE INJ 2 MG INJ IVP PRN (23:21)
[2017-10-22] MEDS: SYNTHROID 50 mcg TAB PO SCH (06:08)
[2017-10-22] MEDS: NS 1000 ML 1,000 ML IV SCH ×3 (06:09→21:12)
[2017-10-22 06:13] LABS: EOSINOPHILS # (AUTO) 0.2 x10^3/uL (0.0-0.2); EOSINOPHILS % (AUTO) 4.4 % (0.9-2.9); HEMATOCRIT 31.6 % (36.0-47.0); HEMOGLOBIN 11.1 g/dL (12.0-16.0); LYMPHOCYTES # (AUTO) 1.3 X10^3/uL (1.3-2.9); LYMPHOCYTES % (AUTO) 26.5 % (21.0-51.0); MEAN CORPUSCULAR HEMOGLOBIN 30.6 pg (27.0-34.0); MEAN CORPUSCULAR VOLUME 87.4 fL (80.0-100.0); MEAN PLATELET VOLUME 9.3 fL (7.4-11.0); MONOCYTES # (AUTO) 0.6 x10^3/uL (0.3-0.8); MONOCYTES % (AUTO) 11.5 % (0.0-13.0); NEUTROPHILS # (AUTO) 2.8 x10^3/uL (2.2-4.8); NEUTROPHILS % (AUTO) 56.6 % (42.0-75.0); PLATELET COUNT 147 X10^3/uL (150.0-450.0); RED BLOOD COUNT 3.62 X10^6/uL (3.5-5.4); RED CELL DISTRIBUTION WIDTH 12.6 % (11.6-16.5); WHITE BLOOD COUNT 4.9 X10^3/uL (3.6-10.0)
[2017-10-22 06:37] LABS: ALANINE AMINOTRANSFERASE 12 Units/L (12-78); ALBUMIN 2.1 g/dL (3.4-5.0); ALKALINE PHOSPHATASE 30 Units/L (46-116); ASPARTATE AMINO TRANSFERASE 24 Units/L (15-37); BLOOD UREA NITROGEN 19 mg/dL (7-18); CHLORIDE 108 mmol/L (98-107); COR CA(FOR HYPOALB) 9.5 mg/dL (8.5-10.1); CREATININE 1.21 mg/dL (0.55-1.02); SODIUM 141 mmol/L (136-145); TOTAL PROTEIN 5.5 g/dL (6.4-8.2); eGFR BLACK RACES 54 (>60); eGFR NON BLACK RACES 45 (>60)
[2017-10-22] MEDS: OSCAL+D or CALTRATE+D PO SCH ×2 (08:27→21:12)
[2017-10-22] MEDS: LOPRESSOR TAB 25 MG PO SCH ×2 (08:27→21:20)
[2017-10-22] MEDS: VITAMIN D3 PO SCH (08:27)
[2017-10-22] MEDS: PROTONIX TAB 40 MG PO SCH (08:27)
[2017-10-22] MEDS: TAB-A-VITE PO SCH (08:28)
[2017-10-22] MEDS: ZOFRAN INJ 4 MG VIAL IVP PRN ×2 (09:34→21:10)
[2017-10-22] MEDS: ALBUMIN HUMAN 25%- 100ML 100 ML IV SCH (12:00)
--- NOTE | 2017-10-22 14:44 | PCM.PROG ---
Progress Note - Progress Note for Day of Date: 10/22/17 - Subjective Subjective: POD-1 kyphoplasty L1. doinf very well. PT got her walking, sitting. minimal pain. incison clean and dry. afebrile, stable vitals. - Past Medical Family Social History Past Med/Fam/Surg Hx: No changes since H&P Allergies: Allergies hydralazine [From Apresoline] Allergy (Verified 10/16/17 17:54) metoclopramide [From Reglan] Allergy (Verified 10/16/17 17:54) Penicillins Allergy (Verified 10/16/17 17:54) pregabalin [From Lyrica] Allergy (Verified 10/16/17 17:54) - Review of Systems ROS: No change since H&P - Vital Signs and I&O's Vital Signs: Temperature 99.5 F Pulse Rate [Right Brachial] 64 Pulse Rate [Apical] 51 Pulse Rate 52 Respiratory Rate 18 Blood Pressure [Left Arm] 194/81 Blood Pressure [Right Arm] 189/77 Blood Pressure 179/77 O2 Sat by Pulse Oximetry 96 Intake and Output: Intake & Output 10/20/17 10/21/17 10/22/17 10/23/17 11:59 11:59 11:59 11:59 Intake Total 1645 2080 1040 Balance 1645 2080 1040 - Physical Exam Oriented: Normal Eyes: Normal. negative: Blurred Vision, Diplopia, Discharge, Pain, Redness, Photophobia, Other Ear: Normal. negative: Right, Left, Swelling, Ecchymosis, Hemotypanum, Abrasion , Laceration Nose: Normal. negative: Injected, Discharge, Blood, Other Throat: Normal. negative: Tonsillar Hypertrophy, Red, Exudate, Dry, Other Respiratory: Normal Cardiovascular: Normal. negative: Tachycardia, Bradycardia, Irregular, S3, S4, Systolic, Diastolic, Murmur, Edema, Other : Normal. negative: Dysuria, Hematuria, Frequency, Discharge, Testicular Pain , Bleeding, , Other Auscultation: Bowel Sounds: Normal Tenderness: Normal Skin: Normal Musculoskeletal: Back:Lumbar, Tender, Instability Psychiatric: Normal Mood Description: Calm Affect: Normal Speech Pattern: Clear, Appropriate - Laboratory and Diagnostics Result Diagrams: 10/22/17 04:45 10/22/17 04:45 Labs: Laboratory WBC 4.9 X10^3/uL (3.6-10.0) 10/22/17 04:45 RBC 3.62 X10^6/uL (3.5-5.4) 10/22/17 04:45 Hgb 11.1 g/dL (12.0-16.0) L 10/22/17 04:45 Hct 31.6 % (36.0-47.0) L 10/22/17 04:45 MCV 87.4 fL (80.0-100.0) 10/22/17 04:45 MCH 30.6 pg (27.0-34.0) 10/22/17 04:45 MCHC 35.0 g/dL (33.0-35.0) 10/22/17 04:45 RDW 12.6 % (11.6-16.5) 10/22/17 04:45 Plt Count 147 X10^3/uL (150.0-450.0) L 10/22/17 04:45 MPV 9.3 fL (7.4-11.0) 10/22/17 04:45 Neut % 56.6 % (42.0-75.0) 10/22/17 04:45 Lymph % 26.5 % (21.0-51.0) 10/22/17 04:45 Gove % 11.5 % (0.0-13.0) 10/22/17 04:45 Eos % 4.4 % (0.9-2.9) H 10/22/17 04:45 Baso % 1.0 % (0.2-1.0) 10/22/17 04:45 Neut # 2.8 x10^3/uL (2.2-4.8) 10/22/17 04:45 Lymph # 1.3 X10^3/uL (1.3-2.9) 10/22/17 04:45 Gove # 0.6 x10^3/uL (0.3-0.8) 10/22/17 04:45 Eos # 0.2 x10^3/uL (0.0-0.2) 10/22/17 04:45 Baso # 0.0 X10^3/uL (0.0-0.1) 10/22/17 04:45 Absolute Nucleated RBC 0.0 /100WBC 02/07/18 04:45 INR Target Range - 10/20/17 05:15 INR 1.27 (0.8-1.3) 10/20/17 05:15 Sodium 141 mmol/L (136-145) 10/22/17 04:45 Corrected Sodium TNP 10/22/17 04:45 Potassium 3.9 mmol/L (3.5-5.1) 10/22/17 04:45 Chloride 108 mmol/L (98-107) H 10/22/17 04:45 Carbon Dioxide 25.0 mmol/L (21-32) 10/22/17 04:45 BUN 19 mg/dL (7-18) H 10/22/17 04:45 Creatinine 1.21 mg/dL (0.55-1.02) H 10/22/17 04:45 Est GFR (MDRD) Af Amer 54 (>60) L 10/22/17 04:45 Est GFR (MDRD) Non-Af 45 (>60) L 10/22/17 04:45 Glucose 101 mg/dL (65-99) H 10/22/17 04:45 Calcium 8.0 mg/dL (8.5-10.1) L 10/22/17 04:45 Corrected Calcium 9.5 mg/dL (8.5-10.1) 10/22/17 04:45 Total Bilirubin 0.20 mg/dL (0.2-1.0) 10/22/17 04:45 AST 24 Units/L (15-37) 10/22/17 04:45 ALT 12 Units/L (12-78) 10/22/17 04:45 Alkaline Phosphatase 30 Units/L (46-116) L 10/22/17 04:45 Total Protein 5.5 g/dL (6.4-8.2) L 10/22/17 04:45 Albumin 2.1 g/dL (3.4-5.0) L 10/22/17 04:45 Globulin 3.4 g/dL (2.5-4.5) 10/22/17 04:45 Albumin/Globulin Ratio 0.6 Ratio (1.1-2.1) L 10/22/17 04:45 Tissue Pathology To follow 10/21/17 12:45 - Plan (1) Compression fracture of first lumbar vertebra Status: Acute Qualifiers: Encounter type: initial encounter Fracture type: closed Qualified Code(s) : S32.010A - Wedge compression fracture of first lumbar vertebra, initial encounter for closed fracture Plan: continue with the PT. wound care. Follow up in office as advised.
--- NOTE | 2017-10-22 18:19 | PCM.PROG ---
Progress Note - Progress Note for Day of Date: 10/21/17 - Subjective Subjective: WAS ADMITTED WITH A COMPRESSION FRACTURE OF L1. SHE WAS ADMITTED FOR PAIN CONTROL AND AN ORTHOPEDIC CONSULT. TODAY, SHE IS ALERT AND ORIENTED, LYING IN BED ON MORNING ROUNDS. SHE CONTINUES TO REPORT THAT PAIN IS WORSE UPON MOVEMENT. ON EXAMINATION, HEART IS NORMAL IN RHYTHM. SHE IS NOTED TO BE BRADYCARDIC WITH HR IN THE 50S. BILATERAL LUNGS ARE NOTED TO BE CLEAR TO AUSCULTATION. ABDOMEN IS ROUND, SOFT, AND NON-TENDER WITH NORMAL BOWEL SOUNDS NOTED IN ALL QUADRANTS. LUMBAR SPINE IS NOTED WITH MODERATE TENDERNESS ON EXAM. HER VITALS THIS MORNING ARE 99.4-52-16-93%-180/77. SHE REMAINED AFEBRILE THROUGHOUT THE NIGHT. LABS WERE OBTAINED. ABNORMAL LAB VALUES INCLUDE THE FOLLOWING: HGB 10.9, HGB 31.7, PLT COUNT 146, CHLORIDE 109, BUN 26, CREATININE 1.48, GFR 35, CALCIM 8.4, ALT 11, ALK PHOS 29, TOTAL PROTEIN 5.6, ALBUMIN 2.3. PLANS TO TAKE PATIENT TO THE OR THIS MORNING FOR KYPHOPLASTY. OTHERWISE, WE WILL CONTINUE WITH CURRENT PLAN OF CARE. WE PLAN TO FOLLOW UP WITH AM LABS AND CONTINUE TO MONITOR PATIENT. - Past Medical Family Social History Past Med/Fam/Surg Hx: No changes since H&P Allergies: Allergies hydralazine [From Apresoline] Allergy (Verified 10/16/17 17:54) metoclopramide [From Reglan] Allergy (Verified 10/16/17 17:54) Penicillins Allergy (Verified 10/16/17 17:54) pregabalin [From Lyrica] Allergy (Verified 10/16/17 17:54) - Review of Systems ROS: No change since H&P - Vital Signs and I&O's Vital Signs: Temperature 98.4 F Pulse Rate [Right Brachial] 54 Pulse Rate [Apical] 51 Pulse Rate 52 Respiratory Rate 20 Blood Pressure [Left Arm] 190/80 Blood Pressure [Right Arm] 189/77 Blood Pressure 179/77 O2 Sat by Pulse Oximetry 97 Intake and Output: Intake & Output 10/20/17 10/21/17 10/22/17 10/23/17 11:59 11:59 11:59 11:59 Intake Total 1645 2080 1040 890 Balance 1645 2080 1040 890 - Physical Exam Oriented: Normal Eyes: Normal. negative: Blurred Vision, Diplopia, Discharge, Pain, Redness, Photophobia, Other Ear: Normal. negative: Right, Left, Swelling, Ecchymosis, Hemotypanum, Abrasion , Laceration Nose: Normal. negative: Injected, Discharge, Blood, Other Throat: Normal. negative: Tonsillar Hypertrophy, Red, Exudate, Dry, Other Respiratory: Normal Cardiovascular: Bradycardia : Normal. negative: Dysuria, Hematuria, Frequency, Discharge, Testicular Pain , Bleeding, , Other Auscultation: Bowel Sounds: Normal Palpation: Normal Tenderness: Normal Skin: Normal Musculoskeletal: Back:Lumbar, Tender, Instability Psychiatric: Normal Mood Description: Calm Affect: Normal Speech Pattern: Clear, Appropriate - Laboratory and Diagnostics Result Diagrams: 10/22/17 04:45 10/22/17 04:45 Labs: Laboratory WBC 4.9 X10^3/uL (3.6-10.0) 10/22/17 04:45 RBC 3.62 X10^6/uL (3.5-5.4) 10/22/17 04:45 Hgb 11.1 g/dL (12.0-16.0) L 10/22/17 04:45 Hct 31.6 % (36.0-47.0) L 10/22/17 04:45 MCV 87.4 fL (80.0-100.0) 10/22/17 04:45 MCH 30.6 pg (27.0-34.0) 10/22/17 04:45 MCHC 35.0 g/dL (33.0-35.0) 10/22/17 04:45 RDW 12.6 % (11.6-16.5) 10/22/17 04:45 Plt Count 147 X10^3/uL (150.0-450.0) L 10/22/17 04:45 MPV 9.3 fL (7.4-11.0) 10/22/17 04:45 Neut % 56.6 % (42.0-75.0) 10/22/17 04:45 Lymph % 26.5 % (21.0-51.0) 10/22/17 04:45 [place] % 11.5 % (0.0-13.0) 10/22/17 04:45 Eos % 4.4 % (0.9-2.9) H 10/22/17 04:45 Baso % 1.0 % (0.2-1.0) 10/22/17 04:45 Neut # 2.8 x10^3/uL (2.2-4.8) 10/22/17 04:45 Lymph # 1.3 X10^3/uL (1.3-2.9) 10/22/17 04:45 [place] # 0.6 x10^3/uL (0.3-0.8) 10/22/17 04:45 Eos # 0.2 x10^3/uL (0.0-0.2) 10/22/17 04:45 Baso # 0.0 X10^3/uL (0.0-0.1) 10/22/17 04:45 Absolute Nucleated RBC 0.0 /100WBC 10/22/17 04:45 INR Target Range - 10/20/17 05:15 INR 1.27 (0.8-1.3) 10/20/17 05:15 Sodium 141 mmol/L (136-145) 10/22/17 04:45 Corrected Sodium TNP 10/22/17 04:45 Potassium 3.9 mmol/L (3.5-5.1) 10/22/17 04:45 Chloride 108 mmol/L (98-107) H 10/22/17 04:45 Carbon Dioxide 25.0 mmol/L (21-32) 10/22/17 04:45 BUN 19 mg/dL (7-18) H 10/22/17 04:45 Creatinine 1.21 mg/dL (0.55-1.02) H 10/22/17 04:45 Est GFR (MDRD) Af Amer 54 (>60) L 10/22/17 04:45 Est GFR (MDRD) Non-Af 45 (>60) L 10/22/17 04:45 Glucose 101 mg/dL (65-99) H 10/22/17 04:45 Calcium 8.0 mg/dL (8.5-10.1) L 10/22/17 04:45 Corrected Calcium 9.5 mg/dL (8.5-10.1) 10/22/17 04:45 Total Bilirubin 0.20 mg/dL (0.2-1.0) 10/22/17 04:45 AST 24 Units/L (15-37) 10/22/17 04:45 ALT 12 Units/L (12-78) 10/22/17 04:45 Alkaline Phosphatase 30 Units/L (46-116) L 10/22/17 04:45 Total Protein 5.5 g/dL (6.4-8.2) L 10/22/17 04:45 Albumin 2.1 g/dL (3.4-5.0) L 10/22/17 04:45 Globulin 3.4 g/dL (2.5-4.5) 10/22/17 04:45 Albumin/Globulin Ratio 0.6 Ratio (1.1-2.1) L 10/22/17 04:45 Tissue Pathology To follow 10/21/17 12:45 - Plan (1) Compression fracture of first lumbar vertebra Status: Acute Qualifiers: Encounter type: initial encounter Fracture type: closed Qualified Code(s) : S32.010A - Wedge compression fracture of first lumbar vertebra, initial encounter for closed fracture Plan: continue with the PT. wound care. Follow up in office as advised. (2) Depression Status: Chronic Qualifiers: Depression Type: major depressive disorder Major depression recurrence: recurrent Active/Remission status: remission status unspecified Qualified Code(s): F33.9 - Major depressive disorder, recurrent, unspecified Plan: CONTINUE PAXIL, CONTINUE TO MONITOR (3) Hyperlipidemia Status: Acute Qualifiers: Hyperlipidemia type: mixed hyperlipidemia Qualified Code(s): E78.2 - Mixed hyperlipidemia Plan: CONTINUE TRICOR, CONTINUE CRESTOR, CONTINUE TO MONITOR (4) GERD (gastroesophageal reflux disease) Status: Acute Qualifiers: Esophagitis presence: esophagitis presence not specified Qualified Code(s) : K21.9 - Gastro-esophageal reflux disease without esophagitis Plan: CONTINUE PROTONIX, CONTINUE TO MONITOR (5) Arthritis Status: Chronic Plan: CONTINUE NEURONTIN, CONTINUE TO MONITOR (6) Hypertension Status: Chronic Qualifiers: Hypertension type: essential hypertension Qualified Code(s): I10 - Essential (primary) hypertension Plan: CONTINUE LOPRESSOR, CONTINUE TO MONITOR (7) Hypothyroidism Status: Chronic Qualifiers: Hypothyroidism type: acquired Qualified Code(s): E03.9 - Hypothyroidism, unspecified Plan: CONTINUE SYNTHROID, CONTINUE TO MONITOR
[2017-10-22] MEDS: TRICOR TAB 48 MG PO SCH (21:10)
[2017-10-22] MEDS: CRESTOR TAB 10 MG PO SCH (21:10)
[2017-10-22] MEDS: PAXIL PO SCH (21:11)
[2017-10-23] MEDS: SYNTHROID 50 mcg TAB PO SCH (06:01)
[2017-10-23 06:15] LABS: BASOPHILS % (AUTO) 0.8 % (0.2-1.0); EOSINOPHILS # (AUTO) 0.2 x10^3/uL (0.0-0.2); EOSINOPHILS % (AUTO) 5.3 % (0.9-2.9); HEMATOCRIT 30.6 % (36.0-47.0); HEMOGLOBIN 10.7 g/dL (12.0-16.0); LYMPHOCYTES # (AUTO) 1.4 X10^3/uL (1.3-2.9); LYMPHOCYTES % (AUTO) 29.8 % (21.0-51.0); MEAN CORPUSCULAR HEMOGLOBIN 30.6 pg (27.0-34.0); MEAN CORPUSCULAR VOLUME 87.4 fL (80.0-100.0); MEAN PLATELET VOLUME 9.4 fL (7.4-11.0); MONOCYTES # (AUTO) 0.5 x10^3/uL (0.3-0.8); MONOCYTES % (AUTO) 11.5 % (0.0-13.0); NEUTROPHILS # (AUTO) 2.4 x10^3/uL (2.2-4.8); NEUTROPHILS % (AUTO) 52.6 % (42.0-75.0); PLATELET COUNT 151 X10^3/uL (150.0-450.0); RED CELL DISTRIBUTION WIDTH 12.4 % (11.6-16.5); WHITE BLOOD COUNT 4.6 X10^3/uL (3.6-10.0)
[2017-10-23 06:33] LABS: ALANINE AMINOTRANSFERASE 12 Units/L (12-78); ALBUMIN 2.2 g/dL (3.4-5.0); ALKALINE PHOSPHATASE 30 Units/L (46-116); ASPARTATE AMINO TRANSFERASE 22 Units/L (15-37); BLOOD UREA NITROGEN 20 mg/dL (7-18); CALCIUM 8.1 mg/dL (8.5-10.1); CARBON DIOXIDE 28.3 mmol/L (21-32); CHLORIDE 109 mmol/L (98-107); COR CA(FOR HYPOALB) 9.5 mg/dL (8.5-10.1); SODIUM 143 mmol/L (136-145); TOTAL PROTEIN 5.3 g/dL (6.4-8.2); eGFR BLACK RACES 50 (>60); eGFR NON BLACK RACES 41 (>60)
[2017-10-23] MEDS: TAB-A-VITE PO SCH (09:08)
[2017-10-23] MEDS: PROTONIX TAB 40 MG PO SCH (09:08)
[2017-10-23] MEDS: VITAMIN D3 PO SCH (09:08)
[2017-10-23] MEDS: OSCAL+D or CALTRATE+D PO SCH (09:09)
[2017-10-23] MEDS: ALBUMIN HUMAN 25%- 100ML 100 ML IV SCH (09:13)
[2017-10-23] MEDS: LOPRESSOR TAB 25 MG PO SCH (09:14)
[2017-10-23] MEDS: NS 1000 ML 1,000 ML IV SCH (10:09)
[2017-10-23 12:24] VITALS: BP 180/77
--- NOTE | 2017-10-23 12:26 | PCM.PROG ---
Progress Note - Progress Note for Day of Date: 10/22/17 - Subjective Subjective: IS DAY 1 STATUS POST KYPHOPLASTY. TODAY, SHE IS ALERT AND ORIENTED, LYING IN BED ON MORNING ROUNDS. FAMILY REPORTS THAT PATIENT HAS AMBULATED WITH ASSISTANCE TO BATHROOM AND IN ROOM. PATIENT REPORTS IMPROVEMENT IN BACK PAIN SINCE PROCEDURE. ON EXAMINATION, HEART IS NORMAL IN RHYTHM. SHE IS NOTED TO BE BRADYCARDIC WITH HR IN THE 50S. BILATERAL LUNGS ARE NOTED TO BE CLEAR TO AUSCULTATION. ABDOMEN IS ROUND, SOFT, AND NON-TENDER WITH NORMAL BOWEL SOUNDS NOTED IN ALL QUADRANTS. LUMBAR SPINE IS NOTED WITH MILD TENDERNESS ON EXAM. HER VITALS THIS MORNING ARE 98.7-69-20-92%-119/69. LABS WERE OBTAINED. ABNORMAL LAB VALUES INCLUDE THE FOLLOWING: HGB HGB 11.1, HCT 31.6, PLT COUNT 147 , CHLORIDE 108, BUN 19, CREATININE 1.21, GLUCOSE 101, CALCIUM 8.0, ALK PHOS 30, TOTAL PROTEIN 5.5, ALBUMIN 2.1. OTHERWISE, WE WILL CONTINUE WITH CURRENT PLAN OF CARE AND HAVE PHYSICAL THERAPY WORK WITH PATIENT. WE WILL DISCUSS PATIENT WITH . IF SHE REMAINS STABLE, WE WILL PLAN FOR DISCHARGE TOMORROW IF OK WITH . OTHERWISE, WE PLAN TO FOLLOW UP WITH AM LABS AND CONTINUE TO MONITOR PATIENT. - Past Medical Family Social History Past Med/Fam/Surg Hx: No changes since H&P Allergies: Allergies hydralazine [From Apresoline] Allergy (Verified 10/16/17 17:54) metoclopramide [From Reglan] Allergy (Verified 10/16/17 17:54) Penicillins Allergy (Verified 10/16/17 17:54) pregabalin [From Lyrica] Allergy (Verified 10/16/17 17:54) - Review of Systems ROS: No change since H&P - Vital Signs and I&O's Vital Signs: Temperature 98.6 F Pulse Rate [Right Brachial] 55 Pulse Rate [Apical] 51 Pulse Rate 52 Respiratory Rate 20 Blood Pressure [Left Arm] 180/77 Blood Pressure [Right Arm] 189/77 Blood Pressure 179/77 O2 Sat by Pulse Oximetry 97 Intake and Output: Intake & Output 10/21/17 10/22/17 10/23/17 10/24/17 11:59 11:59 11:59 11:59 Intake Total 2080 1040 1490 Balance 2079 1040 1490 - Physical Exam Oriented: Normal Eyes: Normal. negative: Blurred Vision, Diplopia, Discharge, Pain, Redness, Photophobia, Other Ear: Normal. negative: Right, Left, Swelling, Ecchymosis, Hemotypanum, Abrasion , Laceration Nose: Normal. negative: Injected, Discharge, Blood, Other Throat: Normal. negative: Tonsillar Hypertrophy, Red, Exudate, Dry, Other Respiratory: Normal Cardiovascular: Bradycardia : Normal. negative: Dysuria, Hematuria, Frequency, Discharge, Testicular Pain , Bleeding, , Other Auscultation: Bowel Sounds: Normal Tenderness: Normal Skin: Normal Musculoskeletal: Back:Lumbar, Tender Psychiatric: Normal Mood Description: Calm Affect: Normal Speech Pattern: Clear, Appropriate - Laboratory and Diagnostics Result Diagrams: 10/23/17 05:05 10/23/17 05:05 Labs: Laboratory WBC 4.6 X10^3/uL (3.6-10.0) 10/23/17 05:05 RBC 3.50 X10^6/uL (3.5-5.4) 10/23/17 05:05 Hgb 10.7 g/dL (12.0-16.0) L 10/23/17 05:05 Hct 30.6 % (36.0-47.0) L 10/23/17 05:05 MCV 87.4 fL (80.0-100.0) 10/23/17 05:05 MCH 30.6 pg (27.0-34.0) 10/23/17 05:05 MCHC 35.0 g/dL (33.0-35.0) 10/23/17 05:05 RDW 12.4 % (11.6-16.5) 10/23/17 05:05 Plt Count 151 X10^3/uL (150.0-450.0) 10/23/17 05:05 MPV 9.4 fL (7.4-11.0) 10/23/17 05:05 Neut % 52.6 % (42.0-75.0) 10/23/17 05:05 Lymph % 29.8 % (21.0-51.0) 10/23/17 05:05 Daniels % 11.5 % (0.0-13.0) 10/23/17 05:05 Eos % 5.3 % (0.9-2.9) H 10/23/17 05:05 Baso % 0.8 % (0.2-1.0) 10/23/17 05:05 Neut # 2.4 x10^3/uL (2.2-4.8) 10/23/17 05:05 Lymph # 1.4 X10^3/uL (1.3-2.9) 10/23/17 05:05 Daniels # 0.5 x10^3/uL (0.3-0.8) 10/23/17 05:05 Eos # 0.2 x10^3/uL (0.0-0.2) 10/23/17 05:05 Baso # 0.0 X10^3/uL (0.0-0.1) 10/23/17 05:05 Absolute Nucleated RBC 0.0 /100WBC 10/23/17 05:05 INR Target Range - 10/20/17 05:15 INR 1.27 (0.8-1.3) 10/20/17 05:15 Sodium 143 mmol/L (136-145) 10/23/17 05:05 Corrected Sodium TNP 10/23/17 05:05 Potassium 4.0 mmol/L (3.5-5.1) 10/23/17 05:05 Chloride 109 mmol/L (98-107) H 10/23/17 05:05 Carbon Dioxide 28.3 mmol/L (21-32) 10/23/17 05:05 BUN 20 mg/dL (7-18) H 10/23/17 05:05 Creatinine 1.30 mg/dL (0.55-1.02) H 10/23/17 05:05 Est GFR (MDRD) Af Amer 50 (>60) L 10/23/17 05:05 Est GFR (MDRD) Non-Af 41 (>60) L 10/23/17 05:05 Glucose 93 mg/dL (65-99) 10/23/17 05:05 Calcium 8.1 mg/dL (8.5-10.1) L 10/23/17 05:05 Corrected Calcium 9.5 mg/dL (8.5-10.1) 10/23/17 05:05 Total Bilirubin 0.30 mg/dL (0.2-1.0) 10/23/17 05:05 AST 22 Units/L (15-37) 10/23/17 05:05 ALT 12 Units/L (12-78) 10/23/17 05:05 Alkaline Phosphatase 30 Units/L (46-116) L 10/23/17 05:05 Total Protein 5.3 g/dL (6.4-8.2) L 10/23/17 05:05 Albumin 2.2 g/dL (3.4-5.0) L 10/23/17 05:05 Globulin 3.1 g/dL (2.5-4.5) 10/23/17 05:05 Albumin/Globulin Ratio 0.7 Ratio (1.1-2.1) L 10/23/17 05:05 Tissue Pathology To follow 10/21/17 12:45 - Plan (1) Status post kyphoplasty Status: Acute Plan: continue with the PT. wound care. Follow up in office as advised. (2) Compression fracture of first lumbar vertebra Status: Acute Qualifiers: Encounter type: initial encounter Fracture type: closed Qualified Code(s) : S32.010A - Wedge compression fracture of first lumbar vertebra, initial encounter for closed fracture Plan: continue with the PT. wound care. Follow up in office as advised. (3) Depression Status: Chronic Qualifiers: Depression Type: major depressive disorder Major depression recurrence: recurrent Active/Remission status: remission status unspecified Qualified Code(s): F33.9 - Major depressive disorder, recurrent, unspecified Plan: CONTINUE PAXIL, CONTINUE TO MONITOR (4) Hyperlipidemia Status: Acute Qualifiers: Hyperlipidemia type: mixed hyperlipidemia Qualified Code(s): E78.2 - Mixed hyperlipidemia Plan: CONTINUE TRICOR, CONTINUE CRESTOR, CONTINUE TO MONITOR (5) GERD (gastroesophageal reflux disease) Status: Acute Qualifiers: Esophagitis presence: esophagitis presence not specified Qualified Code(s) : K21.9 - Gastro-esophageal reflux disease without esophagitis Plan: CONTINUE PROTONIX, CONTINUE TO MONITOR (6) Arthritis Status: Chronic Plan: CONTINUE NEURONTIN, CONTINUE TO MONITOR (7) Hypertension Status: Chronic Qualifiers: Hypertension type: essential hypertension Qualified Code(s): I10 - Essential (primary) hypertension Plan: CONTINUE LOPRESSOR, CONTINUE TO MONITOR (8) Hypothyroidism Status: Chronic Qualifiers: Hypothyroidism type: acquired Qualified Code(s): E03.9 - Hypothyroidism, unspecified Plan: CONTINUE SYNTHROID, CONTINUE TO MONITOR
== END 2017-10-23 15:40 | disposition home health service (06) | DRG 478 ==
LOC: ER 14:30 → ICU 17:08 → MED/SURG 10-17 17:15 → OBSVTOIN 10-18 10:00
PROVIDERS: ADMIT Internal Medicine; ATTEND Internal Medicine
PROC: 0Q903ZX Drainage of Lumbar Vertebra, Percutaneous Approach, Diagnostic (ICD-10-PCS; 2017-10-21)
PROC: 0QU03JZ Supplement Lumbar Vertebra with Synthetic Substitute, Percutaneous Approach (ICD-10-PCS; 2017-10-21)
PROC: 0QS03ZZ Reposition Lumbar Vertebra, Percutaneous Approach (ICD-10-PCS; principal; 2017-10-21 11:00)
DX: S32.010A Wedge compression fracture of first lumbar vertebra, initial encounter for closed fracture (principal); M80.88XA Other osteoporosis with current pathological fracture, vertebra(e), initial encounter for fracture; M54.5 Low back pain; I25.10 Atherosclerotic heart disease of native coronary artery without angina pectoris; E78.2 Mixed hyperlipidemia; K21.9 Gastro-esophageal reflux disease without esophagitis; I10 Essential (primary) hypertension; E03.8 Other specified hypothyroidism; W18.09XA Striking against other object with subsequent fall, initial encounter; Y92.098 Other place in other non-institutional residence as the place of occurrence of the external cause; F33.8 Other recurrent depressive disorders; R26.89 Other abnormalities of gait and mobility
CPT/HCPCS: 36415; 71045; 72131; 76000; 80053; 85025; 85610; 93005; 93010; 94640; 96365; 96374; 96375; 97535; 99100; 99284; A4222; P9047; Q0169; S0020; G0378; J0690; J2250; J2270; J2405; J3490

== ENCOUNTER 2018-01-03 14:28 | Emergency (ER) | payer OTHER, MEDICAID ==
[2018-01-03 14:33] VITALS: BMI 20.1
[2018-01-03 14:35] VITALS: BP 157/81
--- NOTE | 2018-01-03 15:06 | RAD ---
Examination: Left shoulder, four views History: Fell Comparison reference 08/16/2015 Findings: There is a transverse fracture of the humeral shaft immediately distal to the stem of the p rosthesis. There is marked angulation convex anteriorly at the fracture site. No underlying bone dest ruction is seen. The humeral head is probably in normal position. There are nonacute rib fracture def ormities. Impression: Status post left shoulder arthroplasty with periprosthetic fracture of the left humeral s haft, marked angular deformity. Reported By:
[2018-01-03] MEDS ORDERED: NORCO 7.5/325 MG TAB PO ONE (15:12)
--- NOTE | 2018-01-03 15:17 | DR.EXTPAIN ---
HPI - Time seen Time seen: 14:30 - PCP Primary Care Physician: NALLELY - Complaint/Symptoms Chief Complaint:: PT STATED SHE WAS USING HER WALKER AND SHE FELL AND LANDED ON HER LEFT SHOULDER. - Nurses notes reviewed Nurses Notes Review: Yes - Source History Provided: Patient - Mode of arrival Mode of Arrival: Wheelchair - Timing Onset of Chief Complaint: 01/03/18 - Context History of: Shoulder Fracture (hx left humeral head fx on left,) - Associated signs and symptoms Associated Signs and Symptoms: Pain, Other (pain on movement of LUE but no pain if swati doesn't move it ) PMH - PMH Past Medical History: Yes Past Medical History: Coronary Artery Disease, Dyslipidemia, GERD, Hypertension , Hypothyroidism, PUD Past Medical History Comment: hx includes multiple falls needing ortho surgery, recent comp fx back from fall Past Surgical History: Yes Surgical History: Bowel Resection, CABG/Valve Surgery, Cholecystectomy, 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 Surgery, Hysterectomy, Thyroidectomy, Lithotripsy, Other - Family History History of Family Medical Conditions: Yes Family Medical History: Cancer, Hypertension - Social History Does patient currently use any type of tobacco product: No Have you used tobacco products in the last 12 months: No Type of Tobacco Use: None Does any household member use tobacco: No Alcohol Use: None Do you use any recreational Drugs:: No Lives With: Family Lives Where: Home - infectious screening In the last 2 months have you had wt loss of >10#?: NO Have you had fever, night sweats or hemotysis?: No Have you traveled outside the country in the last 6 months?: No Isolation: Standard ROS - Review of Systems ENTM: No Symptoms Reported Respiratoy: No Symptoms Reported Cardiovascular: No Symptoms Reported Gastrointestinal/Abdominal: No Symptoms Reported Genitourinary: No Symptoms Reported Neurological: No Symptoms Reported Musculoskeletal: Back Pain (chronic low back pain), Left, Shoulder, Arm Integumentary: No Symptoms Reported Hematologic/Lymphatic: No Symptoms Reported Endocrine: No Symptoms Reported Psychiatric: No Symptoms Reported All Other Systems: Reviewed and Negative PE - Vital Signs Vitals: Temperature 98.9 F Pulse Rate 63 Respiratory Rate 18 Blood Pressure [Left Arm] 180/77 Blood Pressure [Right Arm] 189/77 Blood Pressure 157/81 O2 Sat by Pulse Oximetry 98 - General Limitations: No Limitations General Appearance: Alert, In No Apparent Distress - Head Head Exam: Normal Inspection, Atraumatic, Normocephalic - Eyes Eye exam: Normal Appearance - ENT ENT Exam: Normal Exam - Neck Neck Exam: Normal Inspection, Trachea Midline. negative: Tenderness - Chest Chest Inspection: Normal Inspection - Respiratory Respiratory Exam: Normal Lung Sounds Bilat Respiratory Exam: Bilateral Clear to Auscultation - Cardiovascular Cardiovascular Exam: Regular Rate, Normal Rhythm, Normal Heart Sounds - Abdominal Exam Abdominal Exam: Normal Inspection, Normal Bowel Sounds, Soft - Extremities Extremities Exam: Normal Inspection, Full ROM - Upper Extremities Shoulder Exam: Normal Inspection Arm Exam: Tenderness, Deformity (palpable bony deformity prox humerus. +TTP prox humerus. NV intact LUE) Elbow Exam: Normal Inspection, Full ROM. negative: Tenderness Forearm Exam: Normal Inspection Hand Exam: Normal Inspection, Full ROM Neuromotor Exam: Normal Exam Neurosensory Exam: Normal Exam, Other (NV intact) - Neurological Neurological Exam: Alert, Oriented X3 - Psychiatric Psychiatric Exam: Normal Affect, Normal Mood - Skin Skin Exam: Warm, Dry, Intact - Diagnosis Discharge Problem: Fracture, humerus closed Qualifiers: Encounter type: initial encounter Humerus Location: proximal Fracture morphology: unspecified fracture morphology Laterality: left Qualified Code(s): S42.202A - Unspecified fracture of upper end of left humerus, initial encounter for closed fracture - Discharge Plan Disposition: HOME, SELF-CARE Condition: Stable Prescriptions: Hydrocodone-Acet 5 mg/325 mg [[place] 5/325 mg Tab] 1 tab PO Q6H PRN #15 tab PRN Reason: Pain - Follow ups/Referrals Follow ups/Referrals: Hernandez Goldman [Primary Care Provider] - 3 days - Instructions Instructions: Humerus Fracture Treated With Immobilization, [id number] Additional Notes - Additional Notes Additional Notes: son wants pt to be admitted but pt does NOT want to stay, she wants to be discharged home to f/u Dr Noe Friday in office as he suggests. Pt AAOx3 and capable of making this decision
[2018-01-03] MEDS ORDERED: NORCO 7.5/325 MG TAB ONE (15:19)
== END 2018-01-03 16:03 | disposition home or self-care (01) ==
LOC: ER 14:40
DX: S42.202A Unspecified fracture of upper end of left humerus, initial encounter for closed fracture (principal); W19.XXXA Unspecified fall, initial encounter; Y92.9 Unspecified place or not applicable
CPT/HCPCS: 73030; 99282

== ENCOUNTER → 2018-01-05 | Outpatient (CLI) | payer OTHER, MEDICAID ==
[2018-01-03 14:35] VITALS: BP 157/81
[2018-01-05 13:24] LABS: BASOPHILS % (AUTO) 0.7 % (0.2-1.0); EOSINOPHILS # (AUTO) 0.1 x10^3/uL (0.0-0.2); EOSINOPHILS % (AUTO) 1.5 % (0.9-2.9); HEMATOCRIT 34.9 % (36.0-47.0); LYMPHOCYTES # (AUTO) 2.1 X10^3/uL (1.3-2.9); LYMPHOCYTES % (AUTO) 29.2 % (21.0-51.0); MEAN CORPUSCULAR HGB CONC 34.3 g/dL (33.0-35.0); MEAN CORPUSCULAR VOLUME 87.5 fL (80.0-100.0); MEAN PLATELET VOLUME 9.3 fL (7.4-11.0); MONOCYTES # (AUTO) 0.6 x10^3/uL (0.3-0.8); MONOCYTES % (AUTO) 8.6 % (0.0-13.0); NEUTROPHILS # (AUTO) 4.2 x10^3/uL (2.2-4.8); PLATELET COUNT 192 X10^3/uL (150.0-450.0); RED BLOOD COUNT 3.99 X10^6/uL (3.5-5.4); RED CELL DISTRIBUTION WIDTH 14.6 % (11.6-16.5); WHITE BLOOD COUNT 7.1 X10^3/uL (3.6-10.0)
[2018-01-05 13:32] LABS: ALANINE AMINOTRANSFERASE 22 Units/L (12-78); ALBUMIN 3.6 g/dL (3.4-5.0); ALKALINE PHOSPHATASE 50 Units/L (46-116); ASPARTATE AMINO TRANSFERASE 33 Units/L (15-37); BLOOD UREA NITROGEN 56 mg/dL (7-18); CALCIUM 10.8 mg/dL (8.5-10.1); CARBON DIOXIDE 24.1 mmol/L (21-32); CHLORIDE 108 mmol/L (98-107); CREATININE 2.06 mg/dL (0.55-1.02); SODIUM 138 mmol/L (136-145); TOTAL PROTEIN 7.5 g/dL (6.4-8.2); eGFR BLACK RACES 29 (>60); eGFR NON BLACK RACES 24 (>60)
--- NOTE | 2018-01-05 13:43 | RAD ---
HISTORY: Surgical clearance forearm surgery Study: Single view of the chest. Comparison: 10/20/2017 Findings: The cardiomediastinal silhouette is normal. No focal consolidations, pleural effusions or pneumothora x. Acute fracture of the left humerus. Bilateral hyper expansion and coarsening of interstitial katty ngs. Multiple old left rib fractures.. IMPRESSION: 1. No acute cardiopulmonary process. 2. Findings consistent with COPD. 3. Left humerus fracture. Reported By:
[2018-01-05 13:55] LABS: BILIRUBIN,URINE NEGATIVE (NEGATIVE); BLOOD/HEMOGLOBIN,URINE NEGATIVE (NEGATIVE); GLUCOSE, URINE NEGATIVE (NEGATIVE); KETONES,URINE NEGATIVE (NEGATIVE); LEUKOCYTE ESTERASE ,URINE 2+ (NEGATIVE); NITRITES,URINE NEGATIVE (NEGATIVE); PROTEIN,URINE NEGATIVE (NEGATIVE); UROBILINOGEN,URINE NORMAL (NORMAL)
[2018-01-05 14:01] LABS: APPEARANCE,URINE CLEAR (CLEAR); BACTERIA,URINE TRACE /HPF (NEGATIVE); COLOR,URINE YELLOW (YELLOW); RBC,URINE NONE SEEN /HPF (NONE SEEN); RENAL EPITHELIAL CELLS,URINE RARE /HPF (NEGATIVE); SQUAMOUS EPITHELIAL CELL,UR FEW /HPF (NEGATIVE)
[2018-01-05 14:03] LABS: ERYTHROCYTE SEDIMENTATION RATE 21 MM/HOUR (0-20)
== END ==
LOC: LAB 12:31
PROVIDERS: ATTEND Orthopaedic Surgery
DX: Z01.818 Encounter for other preprocedural examination (principal); Z01.810 Encounter for preprocedural cardiovascular examination; Z01.811 Encounter for preprocedural respiratory examination; Z79.899 Other long term (current) drug therapy; Z79.01 Long term (current) use of anticoagulants; Z11.8 Encounter for screening for other infectious and parasitic diseases; S42.322A Displaced transverse fracture of shaft of humerus, left arm, initial encounter for closed fracture; R79.82 Elevated C-reactive protein (CRP); R70.0 Elevated erythrocyte sedimentation rate
CPT/HCPCS: 36415; 71045; 80053; 81001; 85025; 85610; 85652; 85730; 86140; 86850; 86900; 86901; 87640; 87641; 93005; 93010

== ENCOUNTER 2018-01-06 09:36 | Inpatient (IN) | payer OTHER, MEDICAID ==
[2018-01-06] MEDS ORDERED: ZOFRAN INJ 4 MG VIAL IVP PRN (11:15)
[2018-01-06] MEDS: NS 1000 ML 1,000 ML with SODIUM BICARBONATE 8.4% INJ ADULT 50 ML IV SCH ×2 (11:43)
[2018-01-06] MEDS: MORPHINE SULFATE INJ 2 MG INJ IVP SCH ×3 (11:43→23:15)
[2018-01-06 11:59] LABS: BASOPHILS % (AUTO) 0.8 % (0.2-1.0); EOSINOPHILS # (AUTO) 0.1 x10^3/uL (0.0-0.2); EOSINOPHILS % (AUTO) 2.1 % (0.9-2.9); HEMATOCRIT 33.1 % (36.0-47.0); HEMOGLOBIN 11.4 g/dL (12.0-16.0); LYMPHOCYTES % (AUTO) 30.9 % (21.0-51.0); MEAN CORPUSCULAR HGB CONC 34.5 g/dL (33.0-35.0); MEAN PLATELET VOLUME 9.2 fL (7.4-11.0); MONOCYTES # (AUTO) 0.6 x10^3/uL (0.3-0.8); MONOCYTES % (AUTO) 10.1 % (0.0-13.0); NEUTROPHILS # (AUTO) 3.6 x10^3/uL (2.2-4.8); NEUTROPHILS % (AUTO) 56.1 % (42.0-75.0); PLATELET COUNT 171 X10^3/uL (150.0-450.0); RED BLOOD COUNT 3.81 X10^6/uL (3.5-5.4); RED CELL DISTRIBUTION WIDTH 14.9 % (11.6-16.5); WHITE BLOOD COUNT 6.4 X10^3/uL (3.6-10.0)
[2018-01-06 12:10] VITALS: BMI 21.3
[2018-01-06 12:26] LABS: ALBUMIN 3.3 g/dL (3.4-5.0); CALCIUM 10.8 mg/dL (8.5-10.1); COR CA(FOR HYPOALB) 11.4 mg/dL (8.5-10.1); CREATININE 1.89 mg/dL (0.55-1.02); TOTAL PROTEIN 7.2 g/dL (6.4-8.2)
--- NOTE | 2018-01-06 20:10 | DR.H&P ---
H&P - History & Physical for Day of: H&P Date: 01/06/18 - Chief Complaint Chief Complaint: LEFT SHOULDER/ARM PAIN - Allergies Allergies/Adverse Reactions: Allergies Allergy/AdvReac Type Severity Reaction Status Date / Time hydralazine [From Apresoline] Allergy Verified 01/03/18 14:29 metoclopramide [From Reglan] Allergy Verified 01/03/18 14:29 Penicillins Allergy Verified 01/03/18 14:29 pregabalin [From Lyrica] Allergy Verified 01/03/18 14:29 - History of Present Illness History of Present Illness: IS A 87 YEAR OLD PATIENT OF OURS WHO PRESENTED WITH COMPLAINTS OF LEFT SHOULDER/ARM PAIN. PATIENT REPORTS THAT PAIN BEGAN 3 DAYS AGO FOLLOWING A FALL. SHE REPORTED TO THE ER WHERE AN XRAY WAS OBTAINED. XRAY REVEALED STATUS POST LEFT SHOULDER ARTHROPLASTY WITH PERIPROSTHETIC FRACTURE OF THE LEFT HUMERAL SHAFT, MARKED ANGULAR DEFORMITY. OUTPATIENT LABS WERE OBTAINED AND REVEALED HCT 34.9, ESR 21, POTASSIUM 5.1, CHLORIDE 108, BUN 56, CREATININE 2.06, GLUCOSE 107, CRP 13.80, A/G RATIO 0.9. URINALYSIS REVEALED WBC 3-5, LEUKOCYTES 3-5, BACTERIA TRACE. WE PLAN TO ADMIT PATIENT FOR IV HYDRATION, PAIN CONTROL, AND A ORTHOPEDIC CONSULT. WE WILL START PATIENT ON NORMAL SALINE AT 80ML/HR WITH 1 AMP OF BICARB IN EACH LITER OF IV FLUIDS, MORPHINE 2MG IV Q6H [place], AND NORCO 5/325MG PO Q6H PRN PAIN. OTHERWISE, WE PLAN TO FOLLOW UP WITH AM LABS AND CONTINUE TO MONITOR PATIENT. 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, Hysterectomy, Ortho Surgery, Thyroidectomy, Lithotripsy, Other - Family History Family Medical History: Cancer, Hypertension - Social History Does patient currently use any type of tobacco product: No Have you used tobacco products in the last 12 months: No Type of Tobacco Use: None Does any household member use tobacco: No Alcohol Use: None Drug Use: None - Medications Home Medications: Amlodipine Besylate [NORVASC 5 MG *] 1 tab PO DAILY 01/06/18 [History Confirmed 01/06/18] Calcium Carbonate [Super Calcium] 600 mg PO DAILY 01/06/18 [History Confirmed ] Cyclobenzaprine HCl [FLEXERIL 10 MG *] 1 tab PO HS 01/06/18 [History Confirmed 01/06/18] - Review of Systems Constitutional: Weakness Eyes: No Symptoms Reported ENT: No Symptoms Reported Respiratory: No Symptoms Reported Cardiovascular: No Symptoms Reported Gastrointestinal: No Symptoms Reported Genitourinary: No Symptoms Reported Musculoskeletal: Shoulder Pain, Other (LEFT SHOULDER/ARM PAIN ) Skin: No Symptoms Reported Neurological: Weakness - Physical Exam Vital Signs: Temperature 97.6 F Pulse Rate [Right Brachial] 51 Respiratory Rate 16 Blood Pressure [Left Arm] 146/63 Blood Pressure [Right Arm] 189/77 Blood Pressure 157/81 O2 Sat by Pulse Oximetry 97 Oriented: Normal Eyes: Normal Ear: Normal Nose: Normal Throat: Normal Respiratory: Clear Throughout Cardiovascular: Normal : Normal Auscultation: Bowel Sounds: Normal Palpation: Normal Tenderness: Normal Skin: Decreased Turgur Musculoskeletal: Left, Shoulder, Arm, Swelling, Tender, Instability Psychiatric: Normal Mood Description: Calm Affect: Normal Speech Pattern: Clear - Assessment/Plan (1) Fracture, humerus closed Qualifiers: Encounter type: initial encounter Humerus Location: shaft Fracture morphology: transverse Fracture alignment: nondisplaced Laterality: left Qualified Code(s): S42.325A - Nondisplaced transverse fracture of shaft of humerus, left arm, initial encounter for closed fracture Status: Acute Plan: ORTHOPEDIC CONSULT, PAIN CONTROL, CONTINUE TO MONITOR (2) Dehydration Status: Acute Plan: NORMAL SALINE AT 80ML/HR WITH 1 AMP BICARB TO EACH LITER OF IV FLUIDS
[2018-01-06] MEDS: NORCO 5/325 MG TAB PO PRN (20:46)
[2018-01-07] MEDS: NS 1000 ML 1,000 ML with SODIUM BICARBONATE 8.4% INJ ADULT 50 ML IV SCH ×4 (00:19→15:31)
[2018-01-07] MEDS: MORPHINE SULFATE INJ 2 MG INJ IVP SCH (05:28)
[2018-01-07 05:33] LABS: BASOPHILS % (AUTO) 0.7 % (0.2-1.0); EOSINOPHILS # (AUTO) 0.2 x10^3/uL (0.0-0.2); HEMATOCRIT 31.4 % (36.0-47.0); HEMOGLOBIN 10.8 g/dL (12.0-16.0); LYMPHOCYTES % (AUTO) 39.5 % (21.0-51.0); MEAN CORPUSCULAR HGB CONC 34.4 g/dL (33.0-35.0); MEAN PLATELET VOLUME 9.1 fL (7.4-11.0); MONOCYTES # (AUTO) 0.5 x10^3/uL (0.3-0.8); MONOCYTES % (AUTO) 10.7 % (0.0-13.0); NEUTROPHILS # (AUTO) 2.2 x10^3/uL (2.2-4.8); NEUTROPHILS % (AUTO) 44.1 % (42.0-75.0); PLATELET COUNT 156 X10^3/uL (150.0-450.0); RED BLOOD COUNT 3.61 X10^6/uL (3.5-5.4); RED CELL DISTRIBUTION WIDTH 14.6 % (11.6-16.5)
[2018-01-07 05:52] LABS: ALANINE AMINOTRANSFERASE 18 Units/L (12-78); ALBUMIN 2.7 g/dL (3.4-5.0); ALKALINE PHOSPHATASE 45 Units/L (46-116); ASPARTATE AMINO TRANSFERASE 22 Units/L (15-37); BLOOD UREA NITROGEN 48 mg/dL (7-18); CALCIUM 9.5 mg/dL (8.5-10.1); CARBON DIOXIDE 24.7 mmol/L (21-32); CHLORIDE 110 mmol/L (98-107); COR CA(FOR HYPOALB) 10.5 mg/dL (8.5-10.1); CREATININE 1.58 mg/dL (0.55-1.02); SODIUM 142 mmol/L (136-145); TOTAL PROTEIN 6.2 g/dL (6.4-8.2); eGFR BLACK RACES 40 (>60); eGFR NON BLACK RACES 33 (>60)
[2018-01-07] MEDS ORDERED: NEURONTIN CAP 100 MG PO PRN (10:11)
[2018-01-07] MEDS ORDERED: ANTIVERT TAB 25 MG PO PRN (10:11)
[2018-01-07] MEDS ORDERED: CHOLECALCIFEROL PO SCH (10:15)
[2018-01-07] MEDS ORDERED: B COMPLEX VITAMINS PO SCH (10:15)
[2018-01-07] MEDS ORDERED: CALCIUM CARBONATE 600 MG PO SCH (10:15)
[2018-01-07] MEDS: NORVASC TAB 5 MG PO SCH (11:19)
[2018-01-07] MEDS: SYNTHROID 50 mcg TAB PO SCH (11:19)
[2018-01-07] MEDS: PROTONIX TAB 40 MG PO SCH (11:19)
[2018-01-07] MEDS: TAB-A-VITE PO SCH (11:19)
[2018-01-07] MEDS ORDERED: ROBINUL ONE (11:21)
[2018-01-07] MEDS ORDERED: VERSED ONE (11:21)
[2018-01-07] MEDS ORDERED: NEOSTIGMINE INJ ONE (11:21)
[2018-01-07] MEDS ORDERED: NORCURON INJ 10 MG VIAL ONE (15:11)
[2018-01-07] MEDS ORDERED: SUPRANE IN ONE (15:11)
[2018-01-07] MEDS ORDERED: DIPRIVAN VIAL ONE (15:11)
[2018-01-07] MEDS ORDERED: ZOFRAN INJ 4 MG VIAL ONE (15:11)
[2018-01-07] MEDS ORDERED: QUELICIN (OR ANECTINE) ONE (15:11)
[2018-01-07] MEDS ORDERED: XYLOCAINE 2 % (PLAIN) ONE (15:11)
[2018-01-07] MEDS: CRESTOR TAB 10 MG PO SCH (20:53)
[2018-01-07] MEDS: FLEXERIL TAB 10 MG PO SCH (20:53)
[2018-01-07] MEDS: PAXIL PO SCH (20:54)
[2018-01-07] MEDS: TRICOR TAB 48 MG PO SCH (20:54)
[2018-01-07] MEDS: LOPRESSOR TAB 25 MG PO SCH (20:55)
[2018-01-07] MEDS ORDERED: METOPROLOL TARTRATE 12.5 MG PO SCH (21:00)
[2018-01-07] MEDS ORDERED: PAROXETINE HCL 5 MG PO SCH (21:00)
[2018-01-07] MEDS: NORCO 5/325 MG TAB PO PRN (23:30)
[2018-01-08] MEDS ORDERED: NS 1000 ML 1,000 ML ONE (02:12)
[2018-01-08] MEDS: NS 1000 ML 1,000 ML with SODIUM BICARBONATE 8.4% INJ ADULT 50 ML IV SCH ×6 (04:38→16:33)
[2018-01-08 06:17] LABS: EOSINOPHILS # (AUTO) 0.2 x10^3/uL (0.0-0.2); EOSINOPHILS % (AUTO) 4.4 % (0.9-2.9); HEMATOCRIT 30.4 % (36.0-47.0); HEMOGLOBIN 10.5 g/dL (12.0-16.0); LYMPHOCYTES # (AUTO) 1.7 X10^3/uL (1.3-2.9); MEAN CORPUSCULAR HGB CONC 34.5 g/dL (33.0-35.0); MEAN CORPUSCULAR VOLUME 86.8 fL (80.0-100.0); MEAN PLATELET VOLUME 9.5 fL (7.4-11.0); MONOCYTES # (AUTO) 0.5 x10^3/uL (0.3-0.8); NEUTROPHILS # (AUTO) 2.2 x10^3/uL (2.2-4.8); NEUTROPHILS % (AUTO) 48.6 % (42.0-75.0); PLATELET COUNT 169 X10^3/uL (150.0-450.0); RED CELL DISTRIBUTION WIDTH 14.5 % (11.6-16.5); WHITE BLOOD COUNT 4.6 X10^3/uL (3.6-10.0)
[2018-01-08 06:47] LABS: ALANINE AMINOTRANSFERASE 17 Units/L (12-78); ALBUMIN 2.5 g/dL (3.4-5.0); ALKALINE PHOSPHATASE 52 Units/L (46-116); ASPARTATE AMINO TRANSFERASE 20 Units/L (15-37); BLOOD UREA NITROGEN 38 mg/dL (7-18); CALCIUM 8.9 mg/dL (8.5-10.1); CARBON DIOXIDE 24.5 mmol/L (21-32); CHLORIDE 110 mmol/L (98-107); COR CA(FOR HYPOALB) 10.1 mg/dL (8.5-10.1); CREATININE 1.35 mg/dL (0.55-1.02); SODIUM 143 mmol/L (136-145); TOTAL PROTEIN 5.9 g/dL (6.4-8.2); eGFR BLACK RACES 47 (>60); eGFR NON BLACK RACES 39 (>60)
[2018-01-08] MEDS ORDERED: LR 1000 ML IV 1,000 ML IV ONE (07:07)
[2018-01-08] MEDS ORDERED: FENTANYL INJ 250 mcg ONE (07:52)
[2018-01-08] MEDS ORDERED: MARCAINE 0.5% ONE (07:52)
[2018-01-08] MEDS ORDERED: CLEOCIN VIAL 600 MG ONE (08:12)
[2018-01-08] MEDS ORDERED: NS 100 ML IV 100 ML IV ONE (08:13)
[2018-01-08] MEDS ORDERED: NS IRRIGATION 1000 ML 1,000 ML with BACITRACIN VIAL 50,000 UNIT IR ONE ×2 (08:47)
[2018-01-08] MEDS ORDERED: BENADRYL INJ 50 MG VIAL IVP PRN (11:45)
[2018-01-08] MEDS ORDERED: PHENERGAN INJ 25 MG IVP PRN (11:45)
[2018-01-08] MEDS ORDERED: DILAUDID INJ IVP PRN (11:45)
[2018-01-08] MEDS ORDERED: ZOFRAN INJ 4 MG VIAL IVP PRN (11:45)
--- NOTE | 2018-01-08 11:54 | DR.CONSULT ---
Consult - Chief Complaint Chief Complaint: left humerus periprosthetic fracture - Allergies Allergies/Adverse Reactions: Allergies Allergy/AdvReac Type Severity Reaction Status Date / Time hydralazine [From Apresoline] Allergy Verified 01/03/18 14:29 metoclopramide [From Reglan] Allergy Verified 01/03/18 14:29 Penicillins Allergy Verified 01/03/18 14:29 pregabalin [From Lyrica] Allergy Verified 01/03/18 14:29 - History of Present Illness History of Present Illness: fall and sustained her left humerud prei prosthetic fracture. 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, Hysterectomy, Ortho Surgery, Thyroidectomy, Lithotripsy, Other - Family History Family Medical History: Cancer, Hypertension - Social History Does patient currently use any type of tobacco product: No Have you used tobacco products in the last 12 months: No Type of Tobacco Use: None Does any household member use tobacco: No Alcohol Use: None Drug Use: None - Medications Home Medications: Amlodipine Besylate [NORVASC 5 MG *] 1 tab PO DAILY 01/06/18 [History Confirmed 01/06/18] Calcium Carbonate [Super Calcium] 600 mg PO DAILY 01/06/18 [History Confirmed ] Cyclobenzaprine HCl [FLEXERIL 10 MG *] 1 tab PO HS 01/06/18 [History Confirmed 01/06/18] - Physical Exam Vital Signs: Temperature 98.7 F Pulse Rate [Right Brachial] 59 Respiratory Rate 16 Blood Pressure [Left Arm] 154/68 Blood Pressure [Right Arm] 189/77 Blood Pressure 157/81 O2 Sat by Pulse Oximetry 95 - Plan Plan: orif left humerus
[2018-01-08] MEDS: DILAUDID INJ IVP PRN ×2 (12:33→15:02)
[2018-01-08] MEDS: SYNTHROID 50 mcg TAB PO SCH (13:48)
[2018-01-08] MEDS: PROTONIX TAB 40 MG PO SCH (13:48)
[2018-01-08] MEDS: NORVASC TAB 5 MG PO SCH (13:48)
[2018-01-08] MEDS: TAB-A-VITE PO SCH (13:48)
[2018-01-08] MEDS: VITAMIN D3 PO SCH (13:49)
--- NOTE | 2018-01-08 14:25 | RAD ---
Left humerus, two views Indication: Left humerus ORIF Comparison: 01/03/2018 Findings/Impression: There has been interval ORIF of the left humeral shaft periprosthetic fracture, which now appears near anatomic in alignment without immediate hardware complication. Expected postsu rgical changes about the left upper arm noted. Multiple remote left-sided rib fractures noted. No new osseous abnormality identified on the provided AP projections. Reported By:
[2018-01-08] MEDS: LOPRESSOR TAB 25 MG PO SCH (20:31)
[2018-01-08] MEDS: NORCO 5/325 MG TAB PO PRN (20:31)
[2018-01-08] MEDS: TRICOR TAB 48 MG PO SCH (20:31)
[2018-01-08] MEDS: PAXIL PO SCH (20:31)
[2018-01-08] MEDS: FLEXERIL TAB 10 MG PO SCH (20:31)
[2018-01-08] MEDS: CRESTOR TAB 10 MG PO SCH (20:31)
--- NOTE | 2018-01-08 21:54 | PCM.PROG ---
Progress Note - Progress Note for Day of Date: 01/08/18 - Subjective Subjective: WAS ADMITTED FOR A LEFT HUMERUS FRACTURE AND DEHYDRATION. TODAY, SHE IS ALERT AND ORIENTED, LYING IN BED ON MORNING ROUNDS. SHE COMPLAINS OF GENERALIZED WEAKNESS AND LEFT ARM/SHOULDER PAIN. ON EXAMINATION , HEART IS REGULAR IN RATE AND RHYTHM. BILATERAL LUNGS ARE CLEAR TO AUSCULTATION. ABDOMEN IS ROUND, SOFT, AND NON-TENDER WITH NORMAL BOWEL SOUNDS NOTED IN ALL QUADRANTS. LEFT ARM IS NOTED IN A SLING AND SHOULDER IMMOBILIZER. NORMAL RANGE OF MOTION NOTED TO LOWER EXTREMITIES. HER VITALS THIS MORNING ARE 97.7-46-18-97%-161/70. ABNORMAL LAB VALUES INCLUDE THE FOLLOWING: HGB 10.8, HCT 31.4, CHLORIDE 110, BUN 48, CREATININE 1.58, ALK PHOS 45, TOTAL PROTEIN 6.2, ALBUMIN 2.7. CONSULTED WITH PATIENT AND PLANS TO TAKE TO THE OR TOMORROW FOR REPAIR OF FRACTURE. WE WILL CONTINUE TO HYDRATE PATIENT TODAY AND CONTINUE WITH PAIN CONTROL. OTHERWISE, WE WILL FOLLOW UP WITH AM LABS AND CONTINUE TO MONITOR PATIENT. - Past Medical Family Social History Past Med/Fam/Surg Hx: No changes since H&P Allergies: Allergies hydralazine [From Apresoline] Allergy (Verified 01/03/18 14:29) metoclopramide [From Reglan] Allergy (Verified 01/03/18 14:29) Penicillins Allergy (Verified 01/03/18 14:29) pregabalin [From Lyrica] Allergy (Verified 01/03/18 14:29) - Review of Systems ROS: No change since H&P - Vital Signs and I&O's Vital Signs: Temperature 99.0 F Pulse Rate [Right Brachial] 76 Pulse Rate 72 Respiratory Rate 20 Blood Pressure [Left Arm] 173/71 Blood Pressure [Right Arm] 189/77 Blood Pressure 160/69 O2 Sat by Pulse Oximetry 94 Intake and Output: Intake & Output 01/06/18 01/07/18 01/08/18 01/09/18 11:59 11:59 11:59 11:59 Intake Total 1787 1537 100 Output Total 0 600 Balance 1787 937 100 - Physical Exam Oriented: Normal Eyes: Normal Ear: Normal Nose: Normal Throat: Normal Respiratory: Normal Cardiovascular: Normal : Normal Auscultation: Bowel Sounds: Normal Palpation: Normal Tenderness: Normal Skin: Decreased Turgur Musculoskeletal: Left, Shoulder, Arm, Swelling, Tender, Instability Psychiatric: Normal Mood Description: Calm Affect: Normal Speech Pattern: Clear, Appropriate - Laboratory and Diagnostics Result Diagrams: 01/08/18 05:07 01/08/18 05:07 Labs: Laboratory WBC 4.6 X10^3/uL (3.6-10.0) 01/08/18 05:07 RBC 3.50 X10^6/uL (3.5-5.4) 01/08/18 05:07 Hgb 10.5 g/dL (12.0-16.0) L 01/08/18 05:07 Hct 30.4 % (36.0-47.0) L 01/08/18 05:07 MCV 86.8 fL (80.0-100.0) 01/08/18 05:07 MCH 30.0 pg (27.0-34.0) 01/08/18 05:07 MCHC 34.5 g/dL (33.0-35.0) 01/08/18 05:07 RDW 14.5 % (11.6-16.5) 01/08/18 05:07 Plt Count 169 X10^3/uL (150.0-450.0) 01/08/18 05:07 MPV 9.5 fL (7.4-11.0) 01/08/18 05:07 Neut % (Auto) 48.6 % (42.0-75.0) 01/08/18 05:07 Lymph % (Auto) 36.0 % (21.0-51.0) 01/08/18 05:07 [place] % (Auto) 10.0 % (0.0-13.0) 01/08/18 05:07 Eos % (Auto) 4.4 % (0.9-2.9) H 01/08/18 05:07 Baso % (Auto) 1.0 % (0.2-1.0) 01/08/18 05:07 Neut # (Auto) 2.2 x10^3/uL (2.2-4.8) 01/08/18 05:07 Lymph # (Auto) 1.7 X10^3/uL (1.3-2.9) 01/08/18 05:07 [place] # (Auto) 0.5 x10^3/uL (0.3-0.8) 01/08/18 05:07 Eos # (Auto) 0.2 x10^3/uL (0.0-0.2) 01/08/18 05:07 Baso # (Auto) 0.0 X10^3/uL (0.0-0.1) 01/08/18 05:07 Absolute Nucleated RBC 0.1 /100WBC 01/08/18 05:07 Sodium 143 mmol/L (136-145) 01/08/18 05:07 Corrected Sodium TNP 01/08/18 05:07 Potassium 3.9 mmol/L (3.5-5.1) 01/08/18 05:07 Chloride 110 mmol/L (98-107) H 01/08/18 05:07 Carbon Dioxide 24.5 mmol/L (21-32) 01/08/18 05:07 BUN 38 mg/dL (7-18) H 01/08/18 05:07 Creatinine 1.35 mg/dL (0.55-1.02) H 01/08/18 05:07 Est GFR (MDRD) Af Amer 47 (>60) L 01/08/18 05:07 Est GFR (MDRD) Non-Af 39 (>60) L 01/08/18 05:07 Glucose 99 mg/dL (65-99) 01/08/18 05:07 Calcium 8.9 mg/dL (8.5-10.1) 01/08/18 05:07 Corrected Calcium 10.1 mg/dL (8.5-10.1) 01/08/18 05:07 Total Bilirubin 0.40 mg/dL (0.2-1.0) 01/08/18 05:07 AST 20 Units/L (15-37) 01/08/18 05:07 ALT 17 Units/L (12-78) 01/08/18 05:07 Alkaline Phosphatase 52 Units/L (46-116) 01/08/18 05:07 Total Protein 5.9 g/dL (6.4-8.2) L 01/08/18 05:07 Albumin 2.5 g/dL (3.4-5.0) L 01/08/18 05:07 Globulin 3.4 g/dL (2.5-4.5) 01/08/18 05:07 Albumin/Globulin Ratio 0.7 Ratio (1.1-2.1) L 01/08/18 05:07 - Plan (1) Fracture, humerus closed Status: Acute Qualifiers: Encounter type: initial encounter Humerus Location: shaft Fracture morphology: transverse Fracture alignment: nondisplaced Laterality: left Qualified Code(s): S42.325A - Nondisplaced transverse fracture of shaft of humerus, left arm, initial encounter for closed fracture Plan: ORTHOPEDIC CONSULT, PAIN CONTROL, CONTINUE TO MONITOR (2) Dehydration Status: Acute Plan: NORMAL SALINE AT 80ML/HR WITH 1 AMP BICARB TO EACH LITER OF IV FLUIDS
--- NOTE | 2018-01-08 21:57 | PCM.PROG ---
Progress Note - Progress Note for Day of Date: 01/08/18 - Subjective Subjective: WAS ADMITTED FOR A LEFT HUMERUS FRACTURE AND DEHYDRATION. TODAY, SHE IS ALERT AND ORIENTED, LYING IN BED ON MORNING ROUNDS. SHE COMPLAINS OF GENERALIZED WEAKNESS AND LEFT ARM/SHOULDER PAIN. ON EXAMINATION , HEART IS REGULAR IN RATE AND RHYTHM. BILATERAL LUNGS ARE CLEAR TO AUSCULTATION. ABDOMEN IS ROUND, SOFT, AND NON-TENDER WITH NORMAL BOWEL SOUNDS NOTED IN ALL QUADRANTS. LEFT ARM IS NOTED IN A SLING AND SHOULDER IMMOBILIZER. NORMAL RANGE OF MOTION NOTED TO LOWER EXTREMITIES. HER VITALS THIS MORNING ARE 98.7-59-16-95%-154/68. BUN HAS DECREASED TO 38, CREATININE TO 1.35. OTHERWISE, SHE IS HEMODYNAMICALLY STABLE. PLANS TO TAKE PATIENT TO THE OPERATING ROOM THIS MORNING. WE ARE IN AGREEMENT WITH PLAN. WE WILL CONTINUE TO MONTIOR PATIENT AFTER SURGERY. WE PLAN TO FOLLOW UP WITH AM LABS, CONTINUE IV HYDRATION, AND PAIN CONTROL. - Past Medical Family Social History Past Med/Fam/Surg Hx: No changes since H&P Allergies: Allergies hydralazine [From Apresoline] Allergy (Verified 01/03/18 14:29) metoclopramide [From Reglan] Allergy (Verified 01/03/18 14:29) Penicillins Allergy (Verified 01/03/18 14:29) pregabalin [From Lyrica] Allergy (Verified 01/03/18 14:29) - Review of Systems ROS: No change since H&P - Vital Signs and I&O's Vital Signs: Temperature 99.0 F Pulse Rate [Right Brachial] 76 Pulse Rate 72 Respiratory Rate 20 Blood Pressure [Left Arm] 173/71 Blood Pressure [Right Arm] 189/77 Blood Pressure 160/69 O2 Sat by Pulse Oximetry 94 Intake and Output: Intake & Output 01/06/18 01/07/18 01/08/18 01/09/18 11:59 11:59 11:59 11:59 Intake Total 1787 1537 100 Output Total 0 600 Balance 1787 937 100 - Physical Exam Oriented: Normal Eyes: Normal Ear: Normal Nose: Normal Throat: Normal Respiratory: Normal Cardiovascular: Normal : Normal Auscultation: Bowel Sounds: Normal Palpation: Normal Tenderness: Normal Skin: Decreased Turgur Musculoskeletal: Left, Shoulder, Arm, Swelling, Tender, Instability Psychiatric: Normal Mood Description: Calm Affect: Normal Speech Pattern: Clear, Appropriate - Laboratory and Diagnostics Result Diagrams: 01/08/18 05:07 01/08/18 05:07 Labs: Laboratory WBC 4.6 X10^3/uL (3.6-10.0) 01/08/18 05:07 RBC 3.50 X10^6/uL (3.5-5.4) 01/08/18 05:07 Hgb 10.5 g/dL (12.0-16.0) L 01/08/18 05:07 Hct 30.4 % (36.0-47.0) L 01/08/18 05:07 MCV 86.8 fL (80.0-100.0) 01/08/18 05:07 MCH 30.0 pg (27.0-34.0) 01/08/18 05:07 MCHC 34.5 g/dL (33.0-35.0) 01/08/18 05:07 RDW 14.5 % (11.6-16.5) 01/08/18 05:07 Plt Count 169 X10^3/uL (150.0-450.0) 01/08/18 05:07 MPV 9.5 fL (7.4-11.0) 01/08/18 05:07 Neut % (Auto) 48.6 % (42.0-75.0) 01/08/18 05:07 Lymph % (Auto) 36.0 % (21.0-51.0) 01/08/18 05:07 [place] % (Auto) 10.0 % (0.0-13.0) 01/08/18 05:07 Eos % (Auto) 4.4 % (0.9-2.9) H 01/08/18 05:07 Baso % (Auto) 1.0 % (0.2-1.0) 01/08/18 05:07 Neut # (Auto) 2.2 x10^3/uL (2.2-4.8) 01/08/18 05:07 Lymph # (Auto) 1.7 X10^3/uL (1.3-2.9) 01/08/18 05:07 [place] # (Auto) 0.5 x10^3/uL (0.3-0.8) 01/08/18 05:07 Eos # (Auto) 0.2 x10^3/uL (0.0-0.2) 01/08/18 05:07 Baso # (Auto) 0.0 X10^3/uL (0.0-0.1) 01/08/18 05:07 Absolute Nucleated RBC 0.1 /100WBC 01/08/18 05:07 Sodium 143 mmol/L (136-145) 01/08/18 05:07 Corrected Sodium TNP 01/08/18 05:07 Potassium 3.9 mmol/L (3.5-5.1) 01/08/18 05:07 Chloride 110 mmol/L (98-107) H 01/08/18 05:07 Carbon Dioxide 24.5 mmol/L (21-32) 01/08/18 05:07 BUN 38 mg/dL (7-18) H 01/08/18 05:07 Creatinine 1.35 mg/dL (0.55-1.02) H 01/08/18 05:07 Est GFR (MDRD) Af Amer 47 (>60) L 01/08/18 05:07 Est GFR (MDRD) Non-Af 39 (>60) L 01/08/18 05:07 Glucose 99 mg/dL (65-99) 01/08/18 05:07 Calcium 8.9 mg/dL (8.5-10.1) 01/08/18 05:07 Corrected Calcium 10.1 mg/dL (8.5-10.1) 01/08/18 05:07 Total Bilirubin 0.40 mg/dL (0.2-1.0) 01/08/18 05:07 AST 20 Units/L (15-37) 01/08/18 05:07 ALT 17 Units/L (12-78) 01/08/18 05:07 Alkaline Phosphatase 52 Units/L (46-116) 01/08/18 05:07 Total Protein 5.9 g/dL (6.4-8.2) L 01/08/18 05:07 Albumin 2.5 g/dL (3.4-5.0) L 01/08/18 05:07 Globulin 3.4 g/dL (2.5-4.5) 01/08/18 05:07 Albumin/Globulin Ratio 0.7 Ratio (1.1-2.1) L 01/08/18 05:07 - Plan (1) Fracture, humerus closed Status: Acute Qualifiers: Encounter type: initial encounter Humerus Location: shaft Fracture morphology: transverse Fracture alignment: nondisplaced Laterality: left Qualified Code(s): S42.325A - Nondisplaced transverse fracture of shaft of humerus, left arm, initial encounter for closed fracture Plan: ORTHOPEDIC CONSULT, PAIN CONTROL, CONTINUE TO MONITOR (2) Dehydration Status: Acute Plan: NORMAL SALINE AT 80ML/HR WITH 1 AMP BICARB TO EACH LITER OF IV FLUIDS
[2018-01-09] MEDS: NS 1000 ML 1,000 ML with SODIUM BICARBONATE 8.4% INJ ADULT 50 ML IV SCH ×2 (03:25)
[2018-01-09] MEDS: DILAUDID INJ IVP PRN ×2 (04:15→10:03)
[2018-01-09 05:33] LABS: BASOPHILS % (AUTO) 0.2 % (0.2-1.0); EOSINOPHILS % (AUTO) 0.1 % (0.9-2.9); HEMATOCRIT 31.6 % (36.0-47.0); HEMOGLOBIN 10.8 g/dL (12.0-16.0); LYMPHOCYTES # (AUTO) 0.9 X10^3/uL (1.3-2.9); LYMPHOCYTES % (AUTO) 10.1 % (21.0-51.0); MEAN CORPUSCULAR HEMOGLOBIN 29.8 pg (27.0-34.0); MEAN CORPUSCULAR HGB CONC 34.1 g/dL (33.0-35.0); MEAN CORPUSCULAR VOLUME 87.4 fL (80.0-100.0); MEAN PLATELET VOLUME 8.6 fL (7.4-11.0); MONOCYTES # (AUTO) 0.7 x10^3/uL (0.3-0.8); MONOCYTES % (AUTO) 8.6 % (0.0-13.0); NEUTROPHILS # (AUTO) 6.9 x10^3/uL (2.2-4.8); PLATELET COUNT 186 X10^3/uL (150.0-450.0); RED BLOOD COUNT 3.62 X10^6/uL (3.5-5.4); RED CELL DISTRIBUTION WIDTH 14.7 % (11.6-16.5); WHITE BLOOD COUNT 8.6 X10^3/uL (3.6-10.0)
[2018-01-09 05:53] LABS: ALBUMIN 2.7 g/dL (3.4-5.0); CALCIUM 8.6 mg/dL (8.5-10.1); COR CA(FOR HYPOALB) 9.6 mg/dL (8.5-10.1); CREATININE 1.38 mg/dL (0.55-1.02); TOTAL PROTEIN 6.3 g/dL (6.4-8.2)
[2018-01-09] MEDS ORDERED: NORVASC TAB 5 MG PO SCH (09:13)
[2018-01-09] MEDS: PROTONIX TAB 40 MG PO SCH (09:47)
[2018-01-09] MEDS: TAB-A-VITE PO SCH (09:48)
[2018-01-09] MEDS: VITAMIN D3 PO SCH (09:48)
[2018-01-09] MEDS: SYNTHROID 50 mcg TAB PO SCH (09:48)
--- NOTE | 2018-01-09 10:02 | OR.GENERIC ---
Post-Op Note Generic - Post-Op Note Operative Report: preoperative diagnosis-left humerus periprosthetic fracture, closed, comminuted Postoperative diagnosis-left humerus periprosthetic fracture, closed, comminuted , unstable Procedure- left humerus shaft open reduction and fixation with plates and screws and cerclage wires Indication-patient again in year-old female with history of fall at home and fractured left humerus. She had a left jorden-replacement done in the past. She had a periprosthetic fracture distal to the stem and proximal to the cement restrictor. A consultation was placed for me. Natural history treatment discussions were done with them. She will proceed with open reduction internal fixation. The risks and benefits were discussed with her. Complications including but not limited to infection, osteomyelitis, stiffness of the shoulder , nonunion, malunion, wrist drop, deltoid weakness, persistent pain, need for further procedure. These appear complications which were discussed with her. She consented for the procedure. Preoperative-patient was seen in the preop holding area. The left upper limb was marked. She got and supraclavicular block by the mobile marketing manager. We again revisited the consent. antibiotic was given within one hour of the surgical incision. Procedure-patient was brought to the operating room. Patient was placed supine on the operating table. Gen. anesthesia was induced and successful endotracheal intubation was completed. She was placed in 15 of beachchair position. C-arm was brought in from the patient's head side and a provisional reduction was achieved. The reduction was unstable. The left upper limb was prepped and draped. An anterolateral approach to the proximal humerus was used. The lower half of the previous deltopectoral scar was incised and was curved distally to be on the lateral aspect of the arm. Dissection carried down proximally to expose the deltopectoral groove. The cephalic vein was identified and was mobilized medially. Distally the dissection was carried down through the subcutaneous tissue to expose the lateral border of the biceps. Deep dissection carried down lateral to the biceps exposing the the humerus. Distally the radial nerve was identified and protected throughout the procedure. The fracture site was exposed and significant comminution was noted at the fracture site. Fracture was found to be unstable and could not be held in place with reduction forceps. So it was decided to proceed with fixation of the plate distally and reducing the fracture later. An appropriate 12 hold plate was chosen and was templated against the humerus. The plate was passed submuscular and extraperiosteal. It was fixed distally with a K wire. It was made sure that there is no radial nerve entrapment and the plate was deep to the nerve. Multiple K wires were placed proximally. The insertion of the deltoid was split to allow the plate to slide and accommodate the plate. The plate was fixed distally with an nonlocking screw. It was made sure that the plate was sitting central to the shaft. Fracture was reduced and the plate was reduced to the shaft and held in place with an bone-holding clamp. A bicortical screw was placed distal to the stem in the proximal fracture segment. Multiple images were checked to confirm appropriate reduction as well as plate fixation. Multiple locking bicortical screws were placed distally. A total of 8 cortices were placed distally. Proximally multiple and cerclage wires were placed and fixed to the plate. The rest of the proximal holes were fixed with unicortical locking screws. As there was a fracture commission noted demineralized bone matrix was placed at the fracture site. Thorough irrigation was done. Wound was closed in layers. [place] were applied. Sterile dressing was applied. C-arm images were obtained throughout the procedure and also at the end of the procedures. Postoperative-patient was woken up from the surgery. Patient was successfully extubated. Patient will shift to the PACU. Her vitals were stable. Pain was well-controlled. The family was updated about the procedure. Postoperative images were obtained. Well aligned and satisfactory reduction. Patient will be admitted and instructions will be discussed with them.
[2018-01-09 14:08] VITALS: BP 142/65
== END 2018-01-09 14:00 | disposition swing bed (61) | DRG 493 ==
LOC: MED/SURG 09:36 → UNDOADMIN 09:36 → MED/SURG 10:43
PROVIDERS: ADMIT Internal Medicine; ATTEND Internal Medicine
PROC: 0PSG04Z Reposition Left Humeral Shaft with Internal Fixation Device, Open Approach (ICD-10-PCS; principal; 2018-01-08 08:30)
DX: S42.355A Nondisplaced comminuted fracture of shaft of humerus, left arm, initial encounter for closed fracture (principal); E86.0 Dehydration; M97.32XA Periprosthetic fracture around internal prosthetic left shoulder joint, initial encounter; I25.10 Atherosclerotic heart disease of native coronary artery without angina pectoris; E78.2 Mixed hyperlipidemia; K21.9 Gastro-esophageal reflux disease without esophagitis; I10 Essential (primary) hypertension; E03.8 Other specified hypothyroidism; R26.89 Other abnormalities of gait and mobility
CPT/HCPCS: 36415; 64415; 73060; 76000; 80053; 85025; 94762; 99100; A4216; A4222; S0020; J0330; J1170; J2001; J2250; J2270; J2405; J2710; J3010; J3490; J7120; S0077

== ENCOUNTER 2018-01-09 14:00 | Inpatient (IN) | payer OTHER, MEDICAID ==
[2018-01-09] MEDS ORDERED: NEURONTIN CAP 100 MG PO PRN (15:59)
[2018-01-09] MEDS ORDERED: ANTIVERT TAB 25 MG PO PRN (15:59)
[2018-01-09 17:09] VITALS: BMI 21.3
[2018-01-09] MEDS: NORCO 5/325 MG TAB PO PRN (17:16)
[2018-01-09] MEDS: CRESTOR TAB 10 MG PO SCH (21:13)
[2018-01-09] MEDS: TRICOR TAB 48 MG PO SCH (21:13)
[2018-01-09] MEDS: PAXIL PO SCH (21:13)
[2018-01-09] MEDS: FLEXERIL TAB 10 MG PO SCH (21:14)
[2018-01-09] MEDS: LOPRESSOR TAB 25 MG PO SCH (21:14)
[2018-01-10] MEDS: ASPIRIN EC 81 MG PO SCH (09:54)
[2018-01-10] MEDS: NORVASC TAB 5 MG PO SCH (09:55)
[2018-01-10] MEDS: PROTONIX TAB 40 MG PO SCH (09:55)
[2018-01-10] MEDS: TAB-A-VITE PO SCH (09:55)
[2018-01-10] MEDS: SYNTHROID 50 mcg TAB PO SCH (09:55)
[2018-01-10] MEDS: VITAMIN D3 PO SCH (09:55)
[2018-01-10] MEDS: NS 1000 ML 1,000 ML IV SCH ×2 (09:56→17:43)
[2018-01-10] MEDS: B COMPLEX VITAMINS PO SCH (10:33)
[2018-01-10] MEDS: CALCIUM CARBONATE 600 MG PO SCH (10:34)
[2018-01-10] MEDS: NORCO 5/325 MG TAB PO PRN (11:24)
[2018-01-10] MEDS ORDERED: PATIENT'S HOME MEDICATION PO SCH (16:00)
[2018-01-10] MEDS: LOPRESSOR TAB 25 MG PO SCH (20:56)
[2018-01-10] MEDS: PAXIL PO SCH (20:57)
[2018-01-10] MEDS: CRESTOR TAB 10 MG PO SCH (20:57)
[2018-01-10] MEDS: TRICOR TAB 48 MG PO SCH (20:57)
[2018-01-10] MEDS: FLEXERIL TAB 10 MG PO SCH (20:58)
[2018-01-11] MEDS: NORCO 5/325 MG TAB PO PRN ×3 (04:39→23:11)
[2018-01-11] MEDS: CALCIUM CARBONATE 600 MG PO SCH (09:46)
[2018-01-11] MEDS: ASPIRIN EC 81 MG PO SCH (09:46)
[2018-01-11] MEDS: B COMPLEX VITAMINS PO SCH (09:46)
[2018-01-11] MEDS: VITAMIN D3 PO SCH (09:47)
[2018-01-11] MEDS: SYNTHROID 50 mcg TAB PO SCH (09:47)
[2018-01-11] MEDS: NORVASC TAB 5 MG PO SCH (09:47)
[2018-01-11] MEDS: NS 1000 ML 1,000 ML IV SCH (09:47)
[2018-01-11] MEDS: PROTONIX TAB 40 MG PO SCH (09:47)
[2018-01-11] MEDS: TAB-A-VITE PO SCH (09:47)
[2018-01-11] MEDS: CRESTOR TAB 10 MG PO SCH (20:08)
[2018-01-11] MEDS: FLEXERIL TAB 10 MG PO SCH (20:09)
[2018-01-11] MEDS: PAXIL PO SCH (20:09)
[2018-01-11] MEDS: TRICOR TAB 48 MG PO SCH (20:10)
[2018-01-11] MEDS: LOPRESSOR TAB 25 MG PO SCH (20:10)
[2018-01-11] MEDS: ZOFRAN TAB 4 MG PO PRN (21:03)
[2018-01-12 05:27] LABS: BASOPHILS % (AUTO) 0.8 % (0.2-1.0); EOSINOPHILS # (AUTO) 0.2 x10^3/uL (0.0-0.2); EOSINOPHILS % (AUTO) 4.4 % (0.9-2.9); HEMATOCRIT 29.7 % (36.0-47.0); HEMOGLOBIN 10.3 g/dL (12.0-16.0); LYMPHOCYTES # (AUTO) 1.2 X10^3/uL (1.3-2.9); LYMPHOCYTES % (AUTO) 24.9 % (21.0-51.0); MEAN CORPUSCULAR HEMOGLOBIN 30.1 pg (27.0-34.0); MEAN CORPUSCULAR HGB CONC 34.7 g/dL (33.0-35.0); MEAN CORPUSCULAR VOLUME 86.6 fL (80.0-100.0); MEAN PLATELET VOLUME 8.3 fL (7.4-11.0); MONOCYTES # (AUTO) 0.5 x10^3/uL (0.3-0.8); MONOCYTES % (AUTO) 10.7 % (0.0-13.0); NEUTROPHILS # (AUTO) 2.8 x10^3/uL (2.2-4.8); NEUTROPHILS % (AUTO) 59.2 % (42.0-75.0); PLATELET COUNT 202 X10^3/uL (150.0-450.0); RED BLOOD COUNT 3.43 X10^6/uL (3.5-5.4); RED CELL DISTRIBUTION WIDTH 14.2 % (11.6-16.5); WHITE BLOOD COUNT 4.8 X10^3/uL (3.6-10.0)
[2018-01-12 05:48] LABS: ALANINE AMINOTRANSFERASE 21 Units/L (12-78); ALBUMIN 1.9 g/dL (3.4-5.0); ALKALINE PHOSPHATASE 38 Units/L (46-116); ASPARTATE AMINO TRANSFERASE 32 Units/L (15-37); BLOOD UREA NITROGEN 18 mg/dL (7-18); CARBON DIOXIDE 25.7 mmol/L (21-32); CHLORIDE 108 mmol/L (98-107); COR CA(FOR HYPOALB) 9.7 mg/dL (8.5-10.1); COR NA(FOR HYPERGLY) 141 mmol/L (136-145); CREATININE 1.08 mg/dL (0.55-1.02); SODIUM 141 mmol/L (136-145); TOTAL PROTEIN 5.9 g/dL (6.4-8.2); eGFR BLACK RACES > 60 (>60); eGFR NON BLACK RACES 51 (>60)
[2018-01-12] MEDS ORDERED: POTASSIUM CHL 60 MEQ/NS 0.45% 500 ML IV PRN (06:26)
[2018-01-12] MEDS ORDERED: POTASSIUM CHLORIDE LIQ 20 MEQ UDC PO PRN (06:26)
[2018-01-12] MEDS ORDERED: K-LYTE EFFERVESCENT PO PRN (06:26)
[2018-01-12] MEDS ORDERED: K-RIDER 10 MEQ/NS 100 ML 10 MEQ/100 ML BAG IV PRN (06:26)
[2018-01-12] MEDS ORDERED: POTASSIUM CHL 40 MEQ/NS 0.45% 500 ML IV PRN (06:26)
[2018-01-12] MEDS: VITAMIN D3 PO SCH (09:51)
[2018-01-12] MEDS: SYNTHROID 50 mcg TAB PO SCH (09:51)
[2018-01-12] MEDS: TAB-A-VITE PO SCH (09:51)
[2018-01-12] MEDS: NORVASC TAB 5 MG PO SCH (09:51)
[2018-01-12] MEDS: PROTONIX TAB 40 MG PO SCH (09:51)
[2018-01-12] MEDS: ASPIRIN EC 81 MG PO SCH (09:51)
[2018-01-12] MEDS: NS 1000 ML 1,000 ML IV SCH (09:55)
[2018-01-12] MEDS: CALCIUM CARBONATE 600 MG PO SCH (09:57)
[2018-01-12] MEDS: B COMPLEX VITAMINS PO SCH (09:57)
[2018-01-12] MEDS: ZOFRAN TAB 4 MG PO PRN ×2 (12:12→20:48)
--- NOTE | 2018-01-12 20:43 | PCM.PROG ---
Progress Note - Progress Note for Day of Date: 01/12/18 - Subjective Subjective: IS STATUS POST ORIF. SHE IS SWINGBED STATUS FOR PHYSICAL THERAPY. TODAY, SHE IS ALERT AND ORIENTED, LYING IN BED ON MORNING ROUNDS. SHE IS NOTED WITH COMPLAINTS OF LEFT ARM/SHOULDER PAIN. SHE IS CURRENTLY WEARING A SLING AND IMMOBILIZER. HER VITALS THIS MORNING ARE 98.2-60- 20-93%-148/63. ABNORMAL LAB VALUES INCLUDE THE FOLLOWING: RBC 3.43, HGB 10.3, HCT 29.7, POTASSIUM 3.3, CHLORIDE 108, GLUCOSE 112, CALCIUM 8.0, ALK PHOS 38, TOTAL PROTEIN 5.9, ALBUMIN 1.9. SHE REPORTS THAT PAIN IS MANAGED WELL WITH PAIN MEDICATIONS. WE WILL CONTINUE WITH CURRENT PLAN OF CARE AND ANTIBIOTICS TODAY. OTHERWISE, WE WILL FOLLOW UP WITH AM LABS AND CONTINUE TO MONITOR PATIENT. - Past Medical Family Social History Past Med/Fam/Surg Hx: No changes since H&P Allergies: Allergies hydralazine [From Apresoline] Allergy (Verified 01/03/18 14:29) metoclopramide [From Reglan] Allergy (Verified 01/03/18 14:29) Penicillins Allergy (Verified 01/03/18 14:29) pregabalin [From Lyrica] Allergy (Verified 01/03/18 14:29) - Review of Systems ROS: No change since H&P - Vital Signs and I&O's Vital Signs: Temperature 99.2 F Pulse Rate [Right Brachial] 69 Respiratory Rate 20 Blood Pressure [Left Arm] 148/67 Blood Pressure [Right Arm] 148/63 Blood Pressure 142/65 O2 Sat by Pulse Oximetry 93 Intake and Output: Intake & Output 01/10/18 01/11/18 01/12/18 01/13/18 11:59 11:59 11:59 11:59 Intake Total 1150 1150 1170 600 Balance 1150 1150 1170 600 - Physical Exam Oriented: Normal Eyes: Normal Ear: Normal Nose: Normal Throat: Normal Respiratory: Normal Cardiovascular: Normal : Normal Auscultation: Bowel Sounds: Normal Palpation: Normal Tenderness: Normal Skin: Normal Musculoskeletal: Left, Shoulder, Arm, Tender Psychiatric: Normal Mood Description: Calm Affect: Normal Speech Pattern: Clear, Appropriate - Laboratory and Diagnostics Result Diagrams: 01/12/18 05:12 01/12/18 05:12 Labs: Laboratory WBC 4.8 X10^3/uL (3.6-10.0) 01/12/18 05:12 RBC 3.43 X10^6/uL (3.5-5.4) L 01/12/18 05:12 Hgb 10.3 g/dL (12.0-16.0) L 01/12/18 05:12 Hct 29.7 % (36.0-47.0) L 01/12/18 05:12 MCV 86.6 fL (80.0-100.0) 01/12/18 05:12 MCH 30.1 pg (27.0-34.0) 01/12/18 05:12 MCHC 34.7 g/dL (33.0-35.0) 01/12/18 05:12 RDW 14.2 % (11.6-16.5) 01/12/18 05:12 Plt Count 202 X10^3/uL (150.0-450.0) 01/12/18 05:12 MPV 8.3 fL (7.4-11.0) 01/12/18 05:12 Neut % (Auto) 59.2 % (42.0-75.0) 01/12/18 05:12 Lymph % (Auto) 24.9 % (21.0-51.0) 01/12/18 05:12 [place] % (Auto) 10.7 % (0.0-13.0) 01/12/18 05:12 Eos % (Auto) 4.4 % (0.9-2.9) H 01/12/18 05:12 Baso % (Auto) 0.8 % (0.2-1.0) 01/12/18 05:12 Neut # (Auto) 2.8 x10^3/uL (2.2-4.8) 01/12/18 05:12 Lymph # (Auto) 1.2 X10^3/uL (1.3-2.9) L 01/12/18 05:12 [place] # (Auto) 0.5 x10^3/uL (0.3-0.8) 01/12/18 05:12 Eos # (Auto) 0.2 x10^3/uL (0.0-0.2) 01/12/18 05:12 Baso # (Auto) 0.0 X10^3/uL (0.0-0.1) 01/12/18 05:12 Absolute Nucleated RBC 0.1 /100WBC 01/12/18 05:12 Sodium 141 mmol/L (136-145) 01/12/18 05:12 Corrected Sodium 141 mmol/L (136-145) 01/12/18 05:12 Potassium 3.3 mmol/L (3.5-5.1) L 01/12/18 05:12 Chloride 108 mmol/L (98-107) H 01/12/18 05:12 Carbon Dioxide 25.7 mmol/L (21-32) 01/12/18 05:12 BUN 18 mg/dL (7-18) 01/12/18 05:12 Creatinine 1.08 mg/dL (0.55-1.02) H 01/12/18 05:12 Est GFR (MDRD) Af Amer > 60 (>60) 01/12/18 05:12 Est GFR (MDRD) Non-Af 51 (>60) L 01/12/18 05:12 Glucose 112 mg/dL (65-99) H 01/12/18 05:12 Calcium 8.0 mg/dL (8.5-10.1) L 01/12/18 05:12 Corrected Calcium 9.7 mg/dL (8.5-10.1) 01/12/18 05:12 Magnesium 1.6 mg/dL (1.7-2.9) L 01/12/18 04:12 Total Bilirubin 0.40 mg/dL (0.2-1.0) 01/12/18 05:12 AST 32 Units/L (15-37) 01/12/18 05:12 ALT 21 Units/L (12-78) 01/12/18 05:12 Alkaline Phosphatase 38 Units/L (46-116) L 01/12/18 05:12 Total Protein 5.9 g/dL (6.4-8.2) L 01/12/18 05:12 Albumin 1.9 g/dL (3.4-5.0) L 01/12/18 05:12 Globulin 4.0 g/dL (2.5-4.5) 01/12/18 05:12 Albumin/Globulin Ratio 0.5 Ratio (1.1-2.1) L 01/12/18 05:12
[2018-01-12] MEDS: FLEXERIL TAB 10 MG PO SCH (20:48)
[2018-01-12] MEDS: CRESTOR TAB 10 MG PO SCH (20:48)
[2018-01-12] MEDS: TRICOR TAB 48 MG PO SCH (20:49)
[2018-01-12] MEDS: PAXIL PO SCH (20:49)
[2018-01-12] MEDS: LOPRESSOR TAB 25 MG PO SCH (20:49)
[2018-01-12] MEDS: NORCO 5/325 MG TAB PO PRN (20:50)
[2018-01-12] MEDS ORDERED: MAG-OX TAB PO SCH (21:00)
[2018-01-13] MEDS: MAGNESIUM SULFATE 1 GM/100 mL PREMIX 1 GM/100 ML BAG IV PRN ×2 (01:56→03:04)
[2018-01-13 05:32] LABS: MAGNESIUM 2.3 mg/dL (1.7-2.9)
[2018-01-13] MEDS: VITAMIN D3 PO SCH (08:49)
[2018-01-13] MEDS: NORVASC TAB 5 MG PO SCH (08:50)
[2018-01-13] MEDS: CALCIUM CARBONATE 600 MG PO SCH (08:51)
[2018-01-13] MEDS: PROTONIX TAB 40 MG PO SCH (08:51)
[2018-01-13] MEDS: B COMPLEX VITAMINS PO SCH (08:51)
[2018-01-13] MEDS: TAB-A-VITE PO SCH (08:51)
[2018-01-13] MEDS: SYNTHROID 50 mcg TAB PO SCH (08:51)
[2018-01-13] MEDS: ASPIRIN EC 81 MG PO SCH (08:51)
[2018-01-13] MEDS: NS 1000 ML 1,000 ML IV SCH (11:57)
[2018-01-13] MEDS: NORCO 5/325 MG TAB PO PRN (20:51)
[2018-01-13] MEDS: FLEXERIL TAB 10 MG PO SCH (20:51)
[2018-01-13] MEDS: CRESTOR TAB 10 MG PO SCH (20:51)
[2018-01-13] MEDS: TRICOR TAB 48 MG PO SCH (20:51)
[2018-01-13] MEDS: LOPRESSOR TAB 25 MG PO SCH (20:51)
[2018-01-13] MEDS: PAXIL PO SCH (20:52)
[2018-01-13] MEDS: ZOFRAN TAB 4 MG PO PRN (21:36)
[2018-01-14] MEDS: SYNTHROID 50 mcg TAB PO SCH (08:55)
[2018-01-14] MEDS: TAB-A-VITE PO SCH (08:55)
[2018-01-14] MEDS: ASPIRIN EC 81 MG PO SCH (08:56)
[2018-01-14] MEDS: VITAMIN D3 PO SCH (08:56)
[2018-01-14] MEDS: PROTONIX TAB 40 MG PO SCH (08:56)
[2018-01-14] MEDS: NORVASC TAB 5 MG PO SCH (08:56)
[2018-01-14] MEDS: CALCIUM CARBONATE 600 MG PO SCH (08:59)
[2018-01-14] MEDS: B COMPLEX VITAMINS PO SCH (08:59)
[2018-01-14] MEDS: NS 1000 ML 1,000 ML IV SCH (13:26)
[2018-01-14] MEDS: NORCO 5/325 MG TAB PO PRN (15:52)
[2018-01-14] MEDS: FLEXERIL TAB 10 MG PO SCH (20:33)
[2018-01-14] MEDS: PAXIL PO SCH (20:33)
[2018-01-14] MEDS: LOPRESSOR TAB 25 MG PO SCH (20:34)
[2018-01-14] MEDS: TRICOR TAB 48 MG PO SCH (20:34)
[2018-01-14] MEDS: CRESTOR TAB 10 MG PO SCH (20:34)
[2018-01-15 06:29] LABS: BASOPHILS # (AUTO) 0.1 X10^3/uL (0.0-0.1); BASOPHILS % (AUTO) 0.9 % (0.2-1.0); EOSINOPHILS # (AUTO) 0.2 x10^3/uL (0.0-0.2); EOSINOPHILS % (AUTO) 3.6 % (0.9-2.9); HEMOGLOBIN 10.2 g/dL (12.0-16.0); LYMPHOCYTES # (AUTO) 1.5 X10^3/uL (1.3-2.9); LYMPHOCYTES % (AUTO) 24.5 % (21.0-51.0); MEAN CORPUSCULAR HEMOGLOBIN 30.1 pg (27.0-34.0); MEAN CORPUSCULAR VOLUME 86.1 fL (80.0-100.0); MONOCYTES # (AUTO) 0.5 x10^3/uL (0.3-0.8); MONOCYTES % (AUTO) 7.7 % (0.0-13.0); NEUTROPHILS # (AUTO) 3.9 x10^3/uL (2.2-4.8); NEUTROPHILS % (AUTO) 63.3 % (42.0-75.0); PLATELET COUNT 182 X10^3/uL (150.0-450.0); RED BLOOD COUNT 3.37 X10^6/uL (3.5-5.4); RED CELL DISTRIBUTION WIDTH 14.8 % (11.6-16.5); WHITE BLOOD COUNT 6.1 X10^3/uL (3.6-10.0)
[2018-01-15 07:15] LABS: PLATELET MORPHOLOGY COMMENT NORMAL (NORMAL)
[2018-01-15 07:23] LABS: ALANINE AMINOTRANSFERASE 23 Units/L (12-78); ALBUMIN 2.2 g/dL (3.4-5.0); ALKALINE PHOSPHATASE 61 Units/L (46-116); ASPARTATE AMINO TRANSFERASE 35 Units/L (15-37); BLOOD UREA NITROGEN 10 mg/dL (7-18); CALCIUM 8.2 mg/dL (8.5-10.1); CARBON DIOXIDE 21.7 mmol/L (21-32); CHLORIDE 110 mmol/L (98-107); COR CA(FOR HYPOALB) 9.6 mg/dL (8.5-10.1); CREATININE 1.08 mg/dL (0.55-1.02); SODIUM 142 mmol/L (136-145); TOTAL PROTEIN 6.1 g/dL (6.4-8.2); eGFR BLACK RACES > 60 (>60); eGFR NON BLACK RACES 51 (>60)
[2018-01-15] MEDS: ZOFRAN TAB 4 MG PO PRN ×2 (07:36→14:45)
[2018-01-15] MEDS: TAB-A-VITE PO SCH (09:07)
[2018-01-15] MEDS: PROTONIX TAB 40 MG PO SCH (09:08)
[2018-01-15] MEDS: NORVASC TAB 5 MG PO SCH (09:08)
[2018-01-15] MEDS: ASPIRIN EC 81 MG PO SCH (09:08)
[2018-01-15] MEDS: SYNTHROID 50 mcg TAB PO SCH (09:08)
[2018-01-15] MEDS: CALCIUM CARBONATE 600 MG PO SCH (09:09)
[2018-01-15] MEDS: B COMPLEX VITAMINS PO SCH (09:09)
[2018-01-15] MEDS: VITAMIN D3 PO SCH (10:03)
[2018-01-15] MEDS: NS 1000 ML 1,000 ML IV SCH (16:48)
[2018-01-15] MEDS: LOPRESSOR TAB 25 MG PO SCH (21:57)
[2018-01-15] MEDS: FLEXERIL TAB 10 MG PO SCH (21:57)
[2018-01-15] MEDS: CRESTOR TAB 10 MG PO SCH (21:57)
[2018-01-15] MEDS: TRICOR TAB 48 MG PO SCH (21:58)
[2018-01-15] MEDS: PAXIL PO SCH (21:58)
[2018-01-16] MEDS: NS 1000 ML 1,000 ML IV SCH ×2 (00:40→16:17)
[2018-01-16] MEDS: MAGNESIUM SULFATE 1 GM/100 mL PREMIX 1 GM/100 ML BAG IV PRN (00:41)
[2018-01-16] MEDS: ZOFRAN TAB 4 MG PO PRN ×2 (04:52→17:20)
[2018-01-16] MEDS: CALCIUM CARBONATE 600 MG PO SCH (08:33)
[2018-01-16] MEDS: PROTONIX TAB 40 MG PO SCH (08:33)
[2018-01-16] MEDS: NORVASC TAB 5 MG PO SCH (08:33)
[2018-01-16] MEDS: B COMPLEX VITAMINS PO SCH (08:33)
[2018-01-16] MEDS: ASPIRIN EC 81 MG PO SCH (08:33)
[2018-01-16] MEDS: VITAMIN D3 PO SCH (08:34)
[2018-01-16] MEDS: NORCO 5/325 MG TAB PO PRN ×2 (08:34→20:46)
[2018-01-16] MEDS: TAB-A-VITE PO SCH (08:34)
[2018-01-16] MEDS: SYNTHROID 50 mcg TAB PO SCH (08:34)
[2018-01-16] MEDS: CRESTOR TAB 10 MG PO SCH (20:45)
[2018-01-16] MEDS: FLEXERIL TAB 10 MG PO SCH (20:45)
[2018-01-16] MEDS: TRICOR TAB 48 MG PO SCH (20:45)
[2018-01-16] MEDS: LOPRESSOR TAB 25 MG PO SCH (20:45)
[2018-01-16] MEDS: PAXIL PO SCH (20:46)
[2018-01-17] MEDS: NS 1000 ML 1,000 ML IV SCH ×2 (01:53→09:26)
[2018-01-17] MEDS: VITAMIN D3 PO SCH (09:22)
[2018-01-17] MEDS: SYNTHROID 50 mcg TAB PO SCH (09:22)
[2018-01-17] MEDS: PROTONIX TAB 40 MG PO SCH (09:23)
[2018-01-17] MEDS: TAB-A-VITE PO SCH (09:23)
[2018-01-17] MEDS: ASPIRIN EC 81 MG PO SCH (09:23)
[2018-01-17] MEDS: NORVASC TAB 5 MG PO SCH (09:23)
[2018-01-17] MEDS: CALCIUM CARBONATE 600 MG PO SCH (09:25)
[2018-01-17] MEDS: B COMPLEX VITAMINS PO SCH (09:25)
[2018-01-17] MEDS: NORCO 5/325 MG TAB PO PRN (09:32)
[2018-01-17] MEDS: ZOFRAN TAB 4 MG PO PRN ×2 (09:32→23:51)
[2018-01-17] MEDS: TRICOR TAB 48 MG PO SCH (20:46)
[2018-01-17] MEDS: PAXIL PO SCH (20:46)
[2018-01-17] MEDS: CRESTOR TAB 10 MG PO SCH (20:46)
[2018-01-17] MEDS: LOPRESSOR TAB 25 MG PO SCH (20:47)
[2018-01-17] MEDS: FLEXERIL TAB 10 MG PO SCH (20:47)
--- NOTE | 2018-01-17 21:00 | PCM.PROG ---
Progress Note - Progress Note for Day of Date: 01/15/18 - Subjective Subjective: IS STATUS POST ORIF. SHE IS SWINGBED STATUS FOR PHYSICAL THERAPY. TODAY, SHE IS ALERT AND ORIENTED, LYING IN BED ON MORNING ROUNDS. SHE DENIES PAIN AT THIS TIME. SHE IS CURRENTLY WEARING A SLING AND IMMOBILIZER. HER VITALS THIS MORNING ARE 99.1-62-20-95%-172/72. ABNORMAL LAB VALUES INCLUDE THE FOLLOWING: RBC 3.37, HGB 10.2, HCT 29.0, CHLORIDE 110, CREATININE 1.08, CALCIUM 8.2, TOTAL PROTEIN 6.1, ALBUMIN 2.2. SHE REPORTS THAT PAIN IS MANAGED WELL WITH PAIN MEDICATIONS. PHYSICAL THERAPY REPORTS THAT PATIENT IS COOPERATING WELL. WE WILL CONTINUE WITH CURRENT PLAN OF CARE TODAY. OTHERWISE, WE WILL FOLLOW UP WITH AM LABS AND CONTINUE TO MONITOR PATIENT. - Past Medical Family Social History Past Med/Fam/Surg Hx: No changes since H&P Allergies: Allergies hydralazine [From Apresoline] Allergy (Verified 01/03/18 14:29) metoclopramide [From Reglan] Allergy (Verified 01/03/18 14:29) Penicillins Allergy (Verified 01/03/18 14:29) pregabalin [From Lyrica] Allergy (Verified 01/03/18 14:29) - Review of Systems ROS: No change since H&P - Vital Signs and I&O's Vital Signs: Temperature 98.7 F Pulse Rate [Right Brachial] 65 Respiratory Rate 18 Blood Pressure [Left Arm] 146/66 Blood Pressure [Right Arm] 132/63 Blood Pressure 142/65 O2 Sat by Pulse Oximetry 90 Intake and Output: Intake & Output 01/15/18 01/16/18 01/17/18 01/18/18 11:59 11:59 11:59 11:59 Intake Total 1577 1071 1841 480 Balance 1577 1071 1841 480 - Physical Exam Oriented: Normal Eyes: Normal Ear: Normal Nose: Normal Throat: Normal Respiratory: Normal Cardiovascular: Normal : Normal Auscultation: Bowel Sounds: Normal Palpation: Normal Tenderness: Normal Skin: Normal Musculoskeletal: Left, Shoulder, Arm, Tender Psychiatric: Normal Mood Description: Calm Affect: Normal Speech Pattern: Clear, Appropriate - Laboratory and Diagnostics Result Diagrams: 01/15/18 05:58 01/15/18 05:58 Labs: Laboratory WBC 6.1 X10^3/uL (3.6-10.0) 01/15/18 05:58 RBC 3.37 X10^6/uL (3.5-5.4) L 01/15/18 05:58 Hgb 10.2 g/dL (12.0-16.0) L 01/15/18 05:58 Hct 29.0 % (36.0-47.0) L 01/15/18 05:58 MCV 86.1 fL (80.0-100.0) 01/15/18 05:58 MCH 30.1 pg (27.0-34.0) 01/15/18 05:58 MCHC 35.0 g/dL (33.0-35.0) 01/15/18 05:58 RDW 14.8 % (11.6-16.5) 01/15/18 05:58 Plt Count 182 X10^3/uL (150.0-450.0) 01/15/18 05:58 Plt Count Comment Adequate (ADEQUATE) 01/15/18 05:58 MPV 9.0 fL (7.4-11.0) 01/15/18 05:58 Neut % (Auto) 63.3 % (42.0-75.0) 01/15/18 05:58 Lymph % (Auto) 24.5 % (21.0-51.0) 01/15/18 05:58 [place] % (Auto) 7.7 % (0.0-13.0) 01/15/18 05:58 Eos % (Auto) 3.6 % (0.9-2.9) H 01/15/18 05:58 Baso % (Auto) 0.9 % (0.2-1.0) 01/15/18 05:58 Neut # (Auto) 3.9 x10^3/uL (2.2-4.8) 01/15/18 05:58 Lymph # (Auto) 1.5 X10^3/uL (1.3-2.9) 01/15/18 05:58 [place] # (Auto) 0.5 x10^3/uL (0.3-0.8) 01/15/18 05:58 Eos # (Auto) 0.2 x10^3/uL (0.0-0.2) 01/15/18 05:58 Baso # (Auto) 0.1 X10^3/uL (0.0-0.1) 01/15/18 05:58 Absolute Nucleated RBC 0.1 /100WBC 01/15/18 05:58 Plt Clumps, EDTA Rare 01/15/18 05:58 Plt Morphology Comment Normal (NORMAL) 01/15/18 05:58 RBC Morphology Normal (NORMAL) 01/15/18 05:58 Sodium 142 mmol/L (136-145) 01/15/18 05:58 Corrected Sodium TNP 01/15/18 05:58 Potassium 3.8 mmol/L (3.5-5.1) 01/15/18 05:58 Chloride 110 mmol/L (98-107) H 01/15/18 05:58 Carbon Dioxide 21.7 mmol/L (21-32) 01/15/18 05:58 BUN 10 mg/dL (7-18) 01/15/18 05:58 Creatinine 1.08 mg/dL (0.55-1.02) H 01/15/18 05:58 Est GFR (MDRD) Af Amer > 60 (>60) 01/15/18 05:58 Est GFR (MDRD) Non-Af 51 (>60) L 01/15/18 05:58 Glucose 92 mg/dL (65-99) 01/15/18 05:58 Calcium 8.2 mg/dL (8.5-10.1) L 01/15/18 05:58 Corrected Calcium 9.6 mg/dL (8.5-10.1) 01/15/18 05:58 Magnesium 2.3 mg/dL (1.7-2.9) 01/13/18 04:35 Total Bilirubin 0.40 mg/dL (0.2-1.0) 01/15/18 05:58 AST 35 Units/L (15-37) 01/15/18 05:58 ALT 23 Units/L (12-78) 01/15/18 05:58 Alkaline Phosphatase 61 Units/L (46-116) 01/15/18 05:58 Total Protein 6.1 g/dL (6.4-8.2) L 01/15/18 05:58 Albumin 2.2 g/dL (3.4-5.0) L 01/15/18 05:58 Globulin 3.9 g/dL (2.5-4.5) 01/15/18 05:58 Albumin/Globulin Ratio 0.6 Ratio (1.1-2.1) L 01/15/18 05:58
[2018-01-18] MEDS: NS 1000 ML 1,000 ML IV SCH ×2 (06:08→11:46)
[2018-01-18] MEDS: NORCO 5/325 MG TAB PO PRN ×3 (06:49→20:40)
[2018-01-18] MEDS: B COMPLEX VITAMINS PO SCH (09:05)
[2018-01-18] MEDS: CALCIUM CARBONATE 600 MG PO SCH (09:05)
[2018-01-18] MEDS: NORVASC TAB 5 MG PO SCH (09:12)
[2018-01-18] MEDS: ASPIRIN EC 81 MG PO SCH (09:12)
[2018-01-18] MEDS: PROTONIX TAB 40 MG PO SCH (09:13)
[2018-01-18] MEDS: SYNTHROID 50 mcg TAB PO SCH (09:13)
[2018-01-18] MEDS: VITAMIN D3 PO SCH (09:13)
[2018-01-18] MEDS: TAB-A-VITE PO SCH (09:13)
[2018-01-18] MEDS: PAXIL PO SCH (20:35)
[2018-01-18] MEDS: TRICOR TAB 48 MG PO SCH (20:35)
[2018-01-18] MEDS: LOPRESSOR TAB 25 MG PO SCH (20:35)
[2018-01-18] MEDS: FLEXERIL TAB 10 MG PO SCH (20:35)
[2018-01-18] MEDS: CRESTOR TAB 10 MG PO SCH (20:36)
[2018-01-19 06:43] LABS: BASOPHILS # (AUTO) 0.2 X10^3/uL (0.0-0.1); EOSINOPHILS # (AUTO) 0.2 x10^3/uL (0.0-0.2); EOSINOPHILS % (AUTO) 3.1 % (0.9-2.9); HEMATOCRIT 26.5 % (36.0-47.0); HEMOGLOBIN 9.1 g/dL (12.0-16.0); LYMPHOCYTES # (AUTO) 2.2 X10^3/uL (1.3-2.9); LYMPHOCYTES % (AUTO) 32.1 % (21.0-51.0); MEAN CORPUSCULAR HEMOGLOBIN 29.2 pg (27.0-34.0); MEAN CORPUSCULAR HGB CONC 34.5 g/dL (33.0-35.0); MEAN CORPUSCULAR VOLUME 84.6 fL (80.0-100.0); MEAN PLATELET VOLUME 8.6 fL (7.4-11.0); MONOCYTES # (AUTO) 0.6 x10^3/uL (0.3-0.8); MONOCYTES % (AUTO) 9.5 % (0.0-13.0); NEUTROPHILS # (AUTO) 3.5 x10^3/uL (2.2-4.8); NEUTROPHILS % (AUTO) 52.3 % (42.0-75.0); PLATELET COUNT 195 X10^3/uL (150.0-450.0); RED BLOOD COUNT 3.13 X10^6/uL (3.5-5.4); RED CELL DISTRIBUTION WIDTH 14.6 % (11.6-16.5); WHITE BLOOD COUNT 6.7 X10^3/uL (3.6-10.0)
[2018-01-19 07:07] LABS: ALANINE AMINOTRANSFERASE 17 Units/L (12-78); ALBUMIN 2.2 g/dL (3.4-5.0); ALKALINE PHOSPHATASE 58 Units/L (46-116); ASPARTATE AMINO TRANSFERASE 23 Units/L (15-37); BLOOD UREA NITROGEN 10 mg/dL (7-18); CARBON DIOXIDE 22.6 mmol/L (21-32); CHLORIDE 110 mmol/L (98-107); COR CA(FOR HYPOALB) 9.4 mg/dL (8.5-10.1); SODIUM 142 mmol/L (136-145); TOTAL PROTEIN 5.5 g/dL (6.4-8.2); eGFR BLACK RACES > 60 (>60); eGFR NON BLACK RACES 55 (>60)
[2018-01-19 07:08] LABS: PLATELET MORPHOLOGY COMMENT NORMAL (NORMAL)
[2018-01-19] MEDS: ZOFRAN TAB 4 MG PO PRN (07:39)
[2018-01-19] MEDS: SYNTHROID 50 mcg TAB PO SCH (08:47)
[2018-01-19] MEDS: PROTONIX TAB 40 MG PO SCH (08:47)
[2018-01-19] MEDS: ASPIRIN EC 81 MG PO SCH (08:47)
[2018-01-19] MEDS: CALCIUM CARBONATE 600 MG PO SCH (08:47)
[2018-01-19] MEDS: NORVASC TAB 5 MG PO SCH (08:47)
[2018-01-19] MEDS: B COMPLEX VITAMINS PO SCH (08:47)
[2018-01-19] MEDS: TAB-A-VITE PO SCH (08:48)
[2018-01-19] MEDS: VITAMIN D3 PO SCH (08:48)
[2018-01-19] MEDS: TRICOR TAB 48 MG PO SCH (22:17)
[2018-01-19] MEDS: CRESTOR TAB 10 MG PO SCH (22:17)
[2018-01-19] MEDS: LOPRESSOR TAB 25 MG PO SCH (22:17)
[2018-01-19] MEDS: FLEXERIL TAB 10 MG PO SCH (22:17)
[2018-01-19] MEDS: PAXIL PO SCH (22:18)
[2018-01-20] MEDS: NORVASC TAB 5 MG PO SCH (08:55)
[2018-01-20] MEDS: VITAMIN D3 PO SCH (08:55)
[2018-01-20] MEDS: TAB-A-VITE PO SCH (08:55)
[2018-01-20] MEDS: NORCO 5/325 MG TAB PO PRN (08:55)
[2018-01-20] MEDS: ASPIRIN EC 81 MG PO SCH (08:56)
[2018-01-20] MEDS: PROTONIX TAB 40 MG PO SCH (08:56)
[2018-01-20] MEDS: SYNTHROID 50 mcg TAB PO SCH (08:56)
[2018-01-20] MEDS: ZOFRAN TAB 4 MG PO PRN ×2 (08:56→22:06)
[2018-01-20] MEDS: CALCIUM CARBONATE 600 MG PO SCH (15:40)
[2018-01-20] MEDS: B COMPLEX VITAMINS PO SCH (15:40)
[2018-01-20] MEDS: FLEXERIL TAB 10 MG PO SCH (22:00)
[2018-01-20] MEDS: CRESTOR TAB 10 MG PO SCH (22:00)
[2018-01-20] MEDS: LOPRESSOR TAB 25 MG PO SCH (22:01)
[2018-01-20] MEDS: TRICOR TAB 48 MG PO SCH (22:01)
[2018-01-20] MEDS: PAXIL PO SCH (22:01)
[2018-01-21] MEDS: NORCO 5/325 MG TAB PO PRN ×2 (01:28→20:23)
[2018-01-21] MEDS: TAB-A-VITE PO SCH (08:30)
[2018-01-21] MEDS: VITAMIN D3 PO SCH (08:30)
[2018-01-21] MEDS: SYNTHROID 50 mcg TAB PO SCH (08:30)
[2018-01-21] MEDS: PROTONIX TAB 40 MG PO SCH (08:31)
[2018-01-21] MEDS: NORVASC TAB 5 MG PO SCH (08:31)
[2018-01-21] MEDS: ASPIRIN EC 81 MG PO SCH (08:31)
[2018-01-21] MEDS: ZOFRAN TAB 4 MG PO PRN (20:23)
[2018-01-21] MEDS: CRESTOR TAB 10 MG PO SCH (20:23)
[2018-01-21] MEDS: TRICOR TAB 48 MG PO SCH (20:23)
[2018-01-21] MEDS: FLEXERIL TAB 10 MG PO SCH (20:24)
[2018-01-21] MEDS: PAXIL PO SCH (20:24)
[2018-01-21] MEDS: LOPRESSOR TAB 25 MG PO SCH (20:25)
--- NOTE | 2018-01-21 22:19 | PCM.PROG ---
Progress Note - Progress Note for Day of Date: 01/18/18 - Subjective Subjective: IS STATUS POST ORIF. SHE IS SWINGBED STATUS FOR PHYSICAL THERAPY. TODAY, SHE IS ALERT AND ORIENTED, LYING IN BED ON MORNING ROUNDS. SHE DENIES PAIN AT THIS TIME. SHE IS CURRENTLY WEARING A SLING AND IMMOBILIZER. HER VITALS THIS MORNING ARE 98.6-68-20-94%-143/67. SHE REPORTS THAT PAIN IS MANAGED WELL WITH PAIN MEDICATIONS. PHYSICAL THERAPY REPORTS THAT PATIENT IS COOPERATING WELL. WE WILL CONTINUE WITH CURRENT PLAN OF CARE TODAY. OTHERWISE, WE WILL FOLLOW UP WITH AM LABS AND CONTINUE TO MONITOR PATIENT. - Past Medical Family Social History Past Med/Fam/Surg Hx: No changes since H&P Allergies: Allergies hydralazine [From Apresoline] Allergy (Verified 01/03/18 14:29) metoclopramide [From Reglan] Allergy (Verified 01/03/18 14:29) Penicillins Allergy (Verified 01/03/18 14:29) pregabalin [From Lyrica] Allergy (Verified 01/03/18 14:29) - Review of Systems ROS: No change since H&P - Vital Signs and I&O's Vital Signs: Temperature 98.4 F Pulse Rate [Right Brachial] 63 Respiratory Rate 18 Blood Pressure [Left Arm] 164/70 Blood Pressure [Right Arm] 154/69 Blood Pressure 142/65 O2 Sat by Pulse Oximetry 93 Intake and Output: Intake & Output 01/19/18 01/20/18 01/21/18 01/22/18 11:59 11:59 11:59 11:59 Intake Total 800 870 720 480 Balance 800 870 720 480 - Physical Exam Oriented: Normal Eyes: Normal Ear: Normal Nose: Normal Throat: Normal Respiratory: Normal Cardiovascular: Normal : Normal Auscultation: Bowel Sounds: Normal Palpation: Normal Tenderness: Normal Skin: Normal Musculoskeletal: Left, Shoulder, Arm, Tender Psychiatric: Normal Mood Description: Calm Affect: Normal Speech Pattern: Clear, Appropriate - Laboratory and Diagnostics Result Diagrams: 01/19/18 05:50 01/19/18 05:50 Labs: Laboratory WBC 6.7 X10^3/uL (3.6-10.0) 01/19/18 05:50 RBC 3.13 X10^6/uL (3.5-5.4) L 01/19/18 05:50 Hgb 9.1 g/dL (12.0-16.0) L 01/19/18 05:50 Hct 26.5 % (36.0-47.0) L 01/19/18 05:50 MCV 84.6 fL (80.0-100.0) 01/19/18 05:50 MCH 29.2 pg (27.0-34.0) 01/19/18 05:50 MCHC 34.5 g/dL (33.0-35.0) 01/19/18 05:50 RDW 14.6 % (11.6-16.5) 01/19/18 05:50 Plt Count 195 X10^3/uL (150.0-450.0) 01/19/18 05:50 Plt Count Comment Adequate (ADEQUATE) 01/19/18 05:50 MPV 8.6 fL (7.4-11.0) 01/19/18 05:50 Neut % (Auto) 52.3 % (42.0-75.0) 01/19/18 05:50 Lymph % (Auto) 32.1 % (21.0-51.0) 01/19/18 05:50 [place] % (Auto) 9.5 % (0.0-13.0) 01/19/18 05:50 Eos % (Auto) 3.1 % (0.9-2.9) H 01/19/18 05:50 Baso % (Auto) 3.0 % (0.2-1.0) H 01/19/18 05:50 Neut # (Auto) 3.5 x10^3/uL (2.2-4.8) 01/19/18 05:50 Lymph # (Auto) 2.2 X10^3/uL (1.3-2.9) 01/19/18 05:50 [place] # (Auto) 0.6 x10^3/uL (0.3-0.8) 01/19/18 05:50 Eos # (Auto) 0.2 x10^3/uL (0.0-0.2) 01/19/18 05:50 Baso # (Auto) 0.2 X10^3/uL (0.0-0.1) H 01/19/18 05:50 Absolute Nucleated RBC 0.2 /100WBC 01/19/18 05:50 Plt Clumps, EDTA Rare 01/19/18 05:50 Plt Morphology Comment Normal (NORMAL) 01/19/18 05:50 RBC Morphology Normal (NORMAL) 01/19/18 05:50 Sodium 142 mmol/L (136-145) 01/19/18 05:50 Corrected Sodium TNP 01/19/18 05:50 Potassium 3.8 mmol/L (3.5-5.1) 01/19/18 05:50 Chloride 110 mmol/L (98-107) H 01/19/18 05:50 Carbon Dioxide 22.6 mmol/L (21-32) 01/19/18 05:50 BUN 10 mg/dL (7-18) 01/19/18 05:50 Creatinine 1.00 mg/dL (0.55-1.02) 01/19/18 05:50 Est GFR (MDRD) Af Amer > 60 (>60) 01/19/18 05:50 Est GFR (MDRD) Non-Af 55 (>60) L 01/19/18 05:50 Glucose 88 mg/dL (65-99) 01/19/18 05:50 Calcium 8.0 mg/dL (8.5-10.1) L 01/19/18 05:50 Corrected Calcium 9.4 mg/dL (8.5-10.1) 01/19/18 05:50 Magnesium 2.3 mg/dL (1.7-2.9) 01/13/18 04:35 Total Bilirubin 0.40 mg/dL (0.2-1.0) 01/19/18 05:50 AST 23 Units/L (15-37) 01/19/18 05:50 ALT 17 Units/L (12-78) 01/19/18 05:50 Alkaline Phosphatase 58 Units/L (46-116) 01/19/18 05:50 Total Protein 5.5 g/dL (6.4-8.2) L 01/19/18 05:50 Albumin 2.2 g/dL (3.4-5.0) L 01/19/18 05:50 Globulin 3.3 g/dL (2.5-4.5) 01/19/18 05:50 Albumin/Globulin Ratio 0.7 Ratio (1.1-2.1) L 01/19/18 05:50
[2018-01-22 05:58] LABS: BASOPHILS # (AUTO) 0.1 X10^3/uL (0.0-0.1); BASOPHILS % (AUTO) 1.1 % (0.2-1.0); EOSINOPHILS # (AUTO) 0.2 x10^3/uL (0.0-0.2); EOSINOPHILS % (AUTO) 4.5 % (0.9-2.9); HEMOGLOBIN 9.4 g/dL (12.0-16.0); LYMPHOCYTES # (AUTO) 1.8 X10^3/uL (1.3-2.9); LYMPHOCYTES % (AUTO) 35.4 % (21.0-51.0); MEAN CORPUSCULAR HEMOGLOBIN 29.5 pg (27.0-34.0); MEAN CORPUSCULAR HGB CONC 34.9 g/dL (33.0-35.0); MEAN CORPUSCULAR VOLUME 84.5 fL (80.0-100.0); MEAN PLATELET VOLUME 7.9 fL (7.4-11.0); MONOCYTES # (AUTO) 0.5 x10^3/uL (0.3-0.8); NEUTROPHILS # (AUTO) 2.5 x10^3/uL (2.2-4.8); PLATELET COUNT 291 X10^3/uL (150.0-450.0); RED BLOOD COUNT 3.19 X10^6/uL (3.5-5.4); RED CELL DISTRIBUTION WIDTH 14.8 % (11.6-16.5)
[2018-01-22 06:03] LABS: ALANINE AMINOTRANSFERASE 15 Units/L (12-78); ALBUMIN 2.1 g/dL (3.4-5.0); ALKALINE PHOSPHATASE 67 Units/L (46-116); ASPARTATE AMINO TRANSFERASE 15 Units/L (15-37); BLOOD UREA NITROGEN 12 mg/dL (7-18); CALCIUM 7.4 mg/dL (8.5-10.1); CARBON DIOXIDE 27.1 mmol/L (21-32); CHLORIDE 111 mmol/L (98-107); COR CA(FOR HYPOALB) 8.9 mg/dL (8.5-10.1); SODIUM 144 mmol/L (136-145); TOTAL PROTEIN 5.3 g/dL (6.4-8.2); eGFR BLACK RACES > 60 (>60); eGFR NON BLACK RACES 50 (>60)
[2018-01-22] MEDS: VITAMIN D3 PO SCH (09:17)
[2018-01-22] MEDS: NORVASC TAB 5 MG PO SCH (09:18)
[2018-01-22] MEDS: SYNTHROID 50 mcg TAB PO SCH (09:18)
[2018-01-22] MEDS: PROTONIX TAB 40 MG PO SCH (09:19)
[2018-01-22] MEDS: TAB-A-VITE PO SCH (09:19)
[2018-01-22] MEDS: ASPIRIN EC 81 MG PO SCH (09:19)
[2018-01-22] MEDS: NORCO 5/325 MG TAB PO PRN (19:18)
[2018-01-22] MEDS: CRESTOR TAB 10 MG PO SCH (21:34)
[2018-01-22] MEDS: TRICOR TAB 48 MG PO SCH (21:34)
[2018-01-22] MEDS: PAXIL PO SCH (21:35)
[2018-01-22] MEDS: FLEXERIL TAB 10 MG PO SCH (21:35)
[2018-01-22] MEDS: ZOFRAN TAB 4 MG PO PRN (21:35)
[2018-01-22] MEDS: LOPRESSOR TAB 25 MG PO SCH (21:36)
[2018-01-23] MEDS: SYNTHROID 50 mcg TAB PO SCH (09:49)
[2018-01-23] MEDS: TAB-A-VITE PO SCH (09:49)
[2018-01-23] MEDS: PROTONIX TAB 40 MG PO SCH (09:49)
[2018-01-23] MEDS: NORVASC TAB 5 MG PO SCH (09:49)
[2018-01-23] MEDS: VITAMIN D3 PO SCH (09:50)
[2018-01-23] MEDS: ASPIRIN EC 81 MG PO SCH (09:50)
[2018-01-23 10:26] VITALS: BP 141/77
== END 2018-01-23 13:20 | disposition home health service (06) | DRG 949 ==
LOC: MED/SURG 14:00
PROVIDERS: ADMIT Internal Medicine; ATTEND Internal Medicine
DX: Z51.89 Encounter for other specified aftercare (principal); S42.355A Nondisplaced comminuted fracture of shaft of humerus, left arm, initial encounter for closed fracture; E86.0 Dehydration; I25.10 Atherosclerotic heart disease of native coronary artery without angina pectoris; E78.2 Mixed hyperlipidemia; K21.9 Gastro-esophageal reflux disease without esophagitis; I10 Essential (primary) hypertension; E03.8 Other specified hypothyroidism; R26.89 Other abnormalities of gait and mobility; Z93.1 Gastrostomy status
CPT/HCPCS: 36415; 80053; 83735; 84132; 85025; 97535; A4222; S0181

== ENCOUNTER 2018-02-05 09:28 | Day surgery (SDC) | payer OTHER, MEDICAID ==
[2018-02-05] MEDS ORDERED: D5 LR 1000 ML 1,000 ML IV ONE (09:37)
[2018-02-05] MEDS ORDERED: ZOFRAN INJ 4 MG VIAL ONE (10:01)
[2018-02-05] MEDS ORDERED: DIPRIVAN VIAL 20 ML ONE (11:03)
[2018-02-05 11:36] VITALS: BP 146/76
== END 2018-02-05 11:40 | disposition home or self-care (01) ==
LOC: SURG1 09:28
PROVIDERS: ATTEND Internal Medicine Gastroenterology
PROC: 0DJ08ZZ Inspection of Upper Intestinal Tract, Via Natural or Artificial Opening Endoscopic (ICD-10-PCS; principal; 2018-02-05 12:15)
PROC: 0D757ZZ Dilation of Esophagus, Via Natural or Artificial Opening (ICD-10-PCS; principal; 2018-02-05 12:15)
PROC: 0DB68ZX Excision of Stomach, Via Natural or Artificial Opening Endoscopic, Diagnostic (ICD-10-PCS; principal; 2018-02-05 12:15)
DX: R13.19 Other dysphagia (principal); R10.13 Epigastric pain; R11.0 Nausea; K21.9 Gastro-esophageal reflux disease without esophagitis; K20.8 Other esophagitis; K22.2 Esophageal obstruction; K22.4 Dyskinesia of esophagus; K29.60 Other gastritis without bleeding
CPT/HCPCS: 99100; A4217; J2405; J3490; J7120

== ENCOUNTER 2018-02-23 14:36 | Inpatient (IN) ==
--- NOTE | 2018-02-23 15:15 | DR.AMS ---
HPI - Time Seen Time seen: 15:15 - PCP Primary Care Physician: NALLELY - Complaint Cheif Complaint Doctors Comments: Patient presented to the ED via EMS secondary to having decreased mental status today. Patient is unaware of the problem. She is alert in no distress, orientated. Chief Complaint:: [place] BRINGS PT. WITH C/O AMS AND WEAKNESS. 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, Hysterectomy , Ortho Surgery, Thyroidectomy, Lithotripsy, Other - Family History History of Family Medical Conditions: Yes Family Medical History: Cancer, Hypertension - Social History Does patient currently use any type of tobacco product: No Have you used tobacco products in the last 12 months: No Type of Tobacco Use: None Does any household member use tobacco: No Alcohol Use: None Do you use any recreational Drugs:: No Lives With: Alone Lives Where: Home - infectious screening In the last 2 months have you had wt loss of >10#?: NO Have you had fever, night sweats or hemotysis?: No Have you traveled outside the country in the last 6 months?: No Isolation: Standard ROS - Review of Systems Eyes: No Symptoms Reported ENTM: No Symptoms Reported Respiratoy: No Symptoms Reported Cardiovascular: No Symptoms Reported Gastrointestinal/Abdominal: No Symptoms Reported Genitourinary: No Symptoms Reported Neurological: No Symptoms Reported Musculoskeletal: No Symptoms Reported Integumentary: No Symptoms Reported Hematologic/Lymphatic: No Symptoms Reported Endocrine: No Symptoms Reported, Increased Hunger All Other Systems: Reviewed and Negative PE - General Limitations: No Limitations General Appearance: Alert, In No Apparent Distress - Head Head Exam: Normal Inspection, Atraumatic Head Exam Physical: Laceration - Eyes Eye exam: Normal Appearance, PERRL, EOMI Pupils: Regular, Round: Bilateral - ENT ENT Exam: Normal Exam, Normal Oropharynx External Ear Exam: Normal External Inspection TM/Canal Exam: Bilateral Normal Nose Exam: Normal Nose Exam Mouth Exam: Normal Inspection Throat Exam: Normal Inspection - Neck Neck Exam: Normal Inspection - Chest Chest Inspection: Normal Inspection, Symmetric Chest Wall Rise - Respiratory Respiratory Exam: Normal Lung Sounds Bilat Respiratory Exam: Bilateral Clear to Auscultation - Cardiovascular Cardiovascular Exam: Regular Rate, Normal Rhythm - Abdominal Exam Abdominal Exam: Normal Inspection, Normal Bowel Sounds Abdominal Tenderness: negative: RUQ, RLQ, LUQ, LLQ, Epigastrium, Suprapubic, Diffuse, Mild, Moderate, Severe, Other - Extremities Extremities Exam: Normal Inspection, Full ROM - Back Back Exam: Normal Inspection - Neurological Neurological Exam: Alert, Oriented X3, CN II-XII Intact Cranial Nerve Exam: EOM Function (II, III, IV, ): Normal - Vitals Vital Signs: Temp Pulse Pulse Resp BP BP BP 02/23/18 16:00 83 16 166/71 02/23/18 15:43 89 16 171/67 02/23/18 14:44 98.6 F 86 17 199/84 02/05/18 11:35 146/76 01/23/18 08:00 141/77 01/23/18 00:00 150/69 Pulse Ox 02/23/18 16:00 99 02/23/18 15:43 100 02/23/18 14:44 99 02/05/18 11:35 01/23/18 08:00 01/23/18 00:00 ROR - Labs Reviewed Result Diagrams: 02/27/18 04:50 02/27/18 04:50 - Labs Reviewed Laboratory: WBC 5.4 X10^3/uL (3.6-10.0) 02/27/18 04:50 RBC 3.39 X10^6/uL (3.5-5.4) L 02/27/18 04:50 Hgb 10.1 g/dL (12.0-16.0) L 02/27/18 04:50 Hct 29.3 % (36.0-47.0) L 02/27/18 04:50 MCV 86.4 fL (80.0-100.0) 02/27/18 04:50 MCH 29.9 pg (27.0-34.0) 02/27/18 04:50 MCHC 34.5 g/dL (33.0-35.0) 02/27/18 04:50 RDW 14.4 % (11.6-16.5) 02/27/18 04:50 Plt Count 148 X10^3/uL (150.0-450.0) L 02/27/18 04:50 MPV 9.2 fL (7.4-11.0) 02/27/18 04:50 Neut % (Auto) 52.3 % (42.0-75.0) 02/27/18 04:50 Lymph % (Auto) 35.6 % (21.0-51.0) 02/27/18 04:50 [place] % (Auto) 8.6 % (0.0-13.0) 02/27/18 04:50 Eos % (Auto) 3.0 % (0.9-2.9) H 02/27/18 04:50 Baso % (Auto) 0.5 % (0.2-1.0) 02/27/18 04:50 Neut # (Auto) 2.8 x10^3/uL (2.2-4.8) 02/27/18 04:50 Lymph # (Auto) 1.9 X10^3/uL (1.3-2.9) 02/27/18 04:50 [place] # (Auto) 0.5 x10^3/uL (0.3-0.8) 02/27/18 04:50 Eos # (Auto) 0.2 x10^3/uL (0.0-0.2) 02/27/18 04:50 Baso # (Auto) 0.0 X10^3/uL (0.0-0.1) 02/27/18 04:50 Absolute Nucleated RBC 0.0 /100WBC 02/27/18 04:50 Sodium 143 mmol/L (136-145) 02/27/18 04:50 Corrected Sodium TNP 02/27/18 04:50 Potassium 4.1 mmol/L (3.5-5.1) 02/27/18 04:50 Chloride 116 mmol/L (98-107) H* 02/27/18 04:50 Carbon Dioxide 17.4 mmol/L (21-32) L 02/27/18 04:50 BUN 37 mg/dL (7-18) H 02/27/18 04:50 Creatinine 1.60 mg/dL (0.55-1.02) H 02/27/18 04:50 Est GFR (MDRD) Af Amer 39 (>60) L 02/27/18 04:50 Est GFR (MDRD) Non-Af 32 (>60) L 02/27/18 04:50 Glucose 89 mg/dL (65-99) 02/27/18 04:50 Calcium 8.6 mg/dL (8.5-10.1) 02/27/18 04:50 Corrected Calcium 10.0 mg/dL (8.5-10.1) 02/27/18 04:50 Total Bilirubin 0.20 mg/dL (0.2-1.0) 02/27/18 04:50 AST 13 Units/L (15-37) L 02/27/18 04:50 ALT 11 Units/L (12-78) L 02/27/18 04:50 Alkaline Phosphatase 56 Units/L (46-116) 02/27/18 04:50 Creatine Kinase 42 Units/L (26-192) 02/23/18 16:08 CK-MB (CK-2) 2.4 ng/mL (0-4.0) 02/23/18 16:08 CK/CKMB % Calc 5.7 % (<4) 02/23/18 16:08 Troponin I < 0.02 ng/mL (0-1.5) 02/23/18 16:08 Total Protein 5.4 g/dL (6.4-8.2) L 02/27/18 04:50 Albumin 2.3 g/dL (3.4-5.0) L 02/27/18 04:50 Globulin 3.1 g/dL (2.5-4.5) 02/27/18 04:50 Albumin/Globulin Ratio 0.7 Ratio (1.1-2.1) L 02/27/18 04:50 Specimen Type Clean catch urine 02/23/18 16:34 Urine Color Yellow (YELLOW) 02/23/18 16:34 Urine Appearance Clear (CLEAR) 02/23/18 16:34 Urine pH 5.0 (5.0 - 8.0) 02/23/18 16:34 Ur Specific [place] 1.020 (1.000-1.030) 02/23/18 16:34 Urine Protein Negative (NEGATIVE) 02/23/18 16:34 Urine Glucose (UA) Negative (NEGATIVE) 02/23/18 16:34 Urine Ketones Negative (NEGATIVE) 02/23/18 16:34 Urine Occult Blood Negative (NEGATIVE) 02/23/18 16:34 Urine Nitrite Negative (NEGATIVE) 02/23/18 16:34 Urine Bilirubin Negative (NEGATIVE) 02/23/18 16:34 Urine Urobilinogen Normal (NORMAL) 02/23/18 16:34 Ur Leukocyte Esterase 2+ (NEGATIVE) 02/23/18 16:34 Urine RBC None seen /HPF (NONE SEEN) 02/23/18 16:34 Urine WBC 3-5 /HPF (NONE SEEN) 02/23/18 16:34 Ur Squamous Epith Cells Rare /HPF (NEGATIVE) 02/23/18 16:34 Urine Bacteria Negative /HPF (NEGATIVE) 02/23/18 16:34 Urine Yeast Rare /HPF (NEGATIVE) 02/23/18 16:34 Ur Culture Indicated? No/not indicated 02/23/18 16:34 - Diagnosis Discharge Problem: Altered mental status Qualifiers: Altered mental status type: transient alteration of awareness Qualified Code(s) : R40.4 - Transient alteration of awareness - Discharge Plan Disposition: 09 ADMITTED INPATIENT Condition: Stable
[2018-02-23 16:19] LABS: BASOPHILS % (AUTO) 0.7 % (0.2-1.0); EOSINOPHILS % (AUTO) 0.2 % (0.9-2.9); HEMATOCRIT 41.3 % (36.0-47.0); HEMOGLOBIN 13.7 g/dL (12.0-16.0); LYMPHOCYTES # (AUTO) 1.2 X10^3/uL (1.3-2.9); MEAN CORPUSCULAR HGB CONC 33.3 g/dL (33.0-35.0); MONOCYTES # (AUTO) 0.5 x10^3/uL (0.3-0.8); MONOCYTES % (AUTO) 7.4 % (0.0-13.0); NEUTROPHILS # (AUTO) 4.5 x10^3/uL (2.2-4.8); NEUTROPHILS % (AUTO) 71.7 % (42.0-75.0); PLATELET COUNT 265 X10^3/uL (150.0-450.0); RED BLOOD COUNT 4.74 X10^6/uL (3.5-5.4); RED CELL DISTRIBUTION WIDTH 14.8 % (11.6-16.5); WHITE BLOOD COUNT 6.2 X10^3/uL (3.6-10.0)
[2018-02-23 16:36] LABS: BLOOD UREA NITROGEN 62 mg/dL (7-18); CALCIUM 11.5 mg/dL (8.5-10.1); CARBON DIOXIDE 21.6 mmol/L (21-32); CHLORIDE 113 mmol/L (98-107); COR NA(FOR HYPERGLY) 148 mmol/L (136-145); CREATININE 2.11 mg/dL (0.55-1.02); SODIUM 146 mmol/L (136-145); TROPONIN I < 0.02 ng/mL (0-1.5); eGFR NON BLACK RACES 23 (>60)
--- NOTE | 2018-02-23 16:36 | RAD ---
Examination: AP chest History: AMS Comparison reference 01/05/2018 Findings: Normal heart size, sternal wires, essentially clear lungs and pleural spaces. Surgical hard sal left humerus with interval application of an additional fixation plate to the incompletely heale d diaphyseal fracture. Impression: No acute cardiac, pulmonary or pleural lesion demonstrated. Interval surgical procedure l eft humerus. Reported By:
--- NOTE | 2018-02-23 16:40 | CT ---
Exam: Head CT without contrast History: 87-year-old female with altered mental status. Comparison: Previous head CT from 03/22/2014 Technique: Axial imaging was performed from the vertex to the base the skull without intravenous cont rast being administered. Sagittal and coronal reformations were generated. Automated exposure control techniques were used with this exam. Findings: Age related atrophic changes are present. However there is no evidence of intracranial hemorrhage, ex tracerebral fluid collections, or intracranial mass. 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 Patchy low density is pre sent in a periventricular white matter distribution, consistent with chronic small vessel ischemic ch liana. Ventricles are symmetric in size and position with no mass effect seen. On the bone windows, no acute abnormality is identified. Visualized aspect of the paranasal sinuses and mastoid air cells ar e clear. Impression: 1. No acute intracranial abnormality is seen on this exam. 2. Chronic age related changes as described above. Reported By:
[2018-02-23 16:41] LABS: ALANINE AMINOTRANSFERASE 17 Units/L (12-78); ALKALINE PHOSPHATASE 66 Units/L (46-116); ASPARTATE AMINO TRANSFERASE 19 Units/L (15-37); CKMB % 5.7 % (<4); CREATINE KINASE 42 Units/L (26-192); CREATINE KINASE MB 2.4 ng/mL (0-4.0); TOTAL PROTEIN 8.4 g/dL (6.4-8.2)
[2018-02-23 16:45] LABS: BILIRUBIN,URINE NEGATIVE (NEGATIVE); BLOOD/HEMOGLOBIN,URINE NEGATIVE (NEGATIVE); GLUCOSE, URINE NEGATIVE (NEGATIVE); KETONES,URINE NEGATIVE (NEGATIVE); LEUKOCYTE ESTERASE ,URINE 2+ (NEGATIVE); NITRITES,URINE NEGATIVE (NEGATIVE); PROTEIN,URINE NEGATIVE (NEGATIVE); UROBILINOGEN,URINE NORMAL (NORMAL)
[2018-02-23 16:53] LABS: APPEARANCE,URINE CLEAR (CLEAR); COLOR,URINE YELLOW (YELLOW)
[2018-02-23 16:54] LABS: BACTERIA,URINE NEGATIVE /HPF (NEGATIVE); RBC,URINE NONE SEEN /HPF (NONE SEEN); SQUAMOUS EPITHELIAL CELL,UR RARE /HPF (NEGATIVE); YEAST,URINE RARE /HPF (NEGATIVE)
[2018-02-23] MEDS ORDERED: ZOFRAN INJ 4 MG VIAL IVP PRN (17:53)
[2018-02-24 06:47] LABS: BASOPHILS # (AUTO) 0.1 X10^3/uL (0.0-0.1); BASOPHILS % (AUTO) 0.9 % (0.2-1.0); EOSINOPHILS # (AUTO) 0.1 x10^3/uL (0.0-0.2); EOSINOPHILS % (AUTO) 0.9 % (0.9-2.9); HEMATOCRIT 38.6 % (36.0-47.0); HEMOGLOBIN 12.9 g/dL (12.0-16.0); LYMPHOCYTES # (AUTO) 1.6 X10^3/uL (1.3-2.9); LYMPHOCYTES % (AUTO) 23.5 % (21.0-51.0); MEAN CORPUSCULAR HEMOGLOBIN 29.2 pg (27.0-34.0); MEAN CORPUSCULAR HGB CONC 33.5 g/dL (33.0-35.0); MEAN CORPUSCULAR VOLUME 87.1 fL (80.0-100.0); MEAN PLATELET VOLUME 9.8 fL (7.4-11.0); MONOCYTES # (AUTO) 0.6 x10^3/uL (0.3-0.8); MONOCYTES % (AUTO) 9.2 % (0.0-13.0); NEUTROPHILS # (AUTO) 4.5 x10^3/uL (2.2-4.8); NEUTROPHILS % (AUTO) 65.5 % (42.0-75.0); PLATELET COUNT 196 X10^3/uL (150.0-450.0); RED BLOOD COUNT 4.43 X10^6/uL (3.5-5.4); RED CELL DISTRIBUTION WIDTH 14.6 % (11.6-16.5); WHITE BLOOD COUNT 6.9 X10^3/uL (3.6-10.0)
[2018-02-24 06:59] LABS: ALANINE AMINOTRANSFERASE 15 Units/L (12-78); ALBUMIN 3.4 g/dL (3.4-5.0); ALKALINE PHOSPHATASE 58 Units/L (46-116); ASPARTATE AMINO TRANSFERASE 20 Units/L (15-37); BLOOD UREA NITROGEN 61 mg/dL (7-18); CALCIUM 10.6 mg/dL (8.5-10.1); CARBON DIOXIDE 20.2 mmol/L (21-32); CHLORIDE 108 mmol/L (98-107); SODIUM 139 mmol/L (136-145); TOTAL PROTEIN 7.2 g/dL (6.4-8.2); eGFR NON BLACK RACES 26 (>60)
[2018-02-24] MEDS ORDERED: ANTIVERT TAB 25 MG PO PRN (11:19)
[2018-02-24] MEDS: SYNTHROID 50 mcg TAB PO SCH (12:11)
[2018-02-24] MEDS: NORVASC TAB 5 MG PO SCH (12:11)
[2018-02-24] MEDS: ZESTRIL TAB 5 MG PO SCH (12:11)
[2018-02-24] MEDS: PROTONIX TAB 40 MG PO SCH (12:11)
[2018-02-24] MEDS: NS 1000 ML 1,000 ML IV SCH ×2 (12:11→21:17)
--- NOTE | 2018-02-24 14:46 | DR.H&P ---
H&P - History & Physical for Day of: H&P Date: 02/23/18 - Chief Complaint Chief Complaint: weakness, confusion - History of Present Illness History of Present Illness: is a 87 year old patient of ours who presented to the emergency room via EMS with reports of decrease in mental status and weakness. Patient's grandson states patient was working with physical therapy and became increasingly confused. Associated symptoms include decreased appetite and nausea. On arrival, vitals were 98.6, 86, 17, 99% RA, 199 /84. Labs were obtained. Abnormal lab values include the following: Abnormal Labs: Sodium 146, Corrected Sodium 148, Potassium 5.4, Chloride 113, BUN 62, Creatinine 2.11, GFR af 28, GFR non 23, Glucose 170, Calcium 11.5, Total Protein 8.4, A/G Ratio 0.9. Patient noted with a baseline BUN/creatinine of 10 and 1.00. Urinalysis revealed: Leuk Est 2+, WBC 3-5, Yeast Rare. A chest xray was obtained and revealed: No acute cardiac, pulmonary or pleural lesion demonstrated. Interval surgical procedure left humerus. EKG revealed: Sinus Rhythm. Rate=79. A brain CT was obtained and revealed: Age related atrophic changes are present. However there is no evidence of intracranial hemorrhage, extracerebral fluid collections, or intracranial mass. 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 Patchy low density is present in a periventricular white matter distribution, consistent with chronic small vessel ischemic change. Ventricles are symmetric in size and position with no mass effect seen. On the bone windows, no acute abnormality is identified. Visualized aspect of the paranasal sinuses and mastoid air cells are clear. Patient admitted to the hospital with dehydration and pre-renal azotemia. We planned to follow up with am labs and continue to monitor. 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, Hysterectomy , Ortho Surgery, Thyroidectomy, Lithotripsy, Other - Family History Family Medical History: Cancer, Hypertension - Social History Does patient currently use any type of tobacco product: No Have you used tobacco products in the last 12 months: No Type of Tobacco Use: None Does any household member use tobacco: No Alcohol Use: None Drug Use: None - Medications Home Medications: hydralazine [From Apresoline] Allergy (Verified 02/23/18 14:44) metoclopramide [From Reglan] Allergy (Verified 02/23/18 14:44) Penicillins Allergy (Verified 02/23/18 14:44) pregabalin [From Lyrica] Allergy (Verified 02/23/18 14:44) CONTINUE taking the following medications acyclovir 1 tab PO BID 02/23/18 [History] cyclobenzaprine 1 tab PO HS 02/23/18 [History] meclizine 1 tab PO TID PRN 02/23/18 [History] cholestyramine-aspart[place] [Cholestyramine Light] 1 scoop/day PO BID 02/24/18 [ History] - Review of Systems Constitutional: Weakness, Malaise, Other (DECREASED APPETITE ) Eyes: No Symptoms Reported ENT: No Symptoms Reported Respiratory: No Symptoms Reported Cardiovascular: No Symptoms Reported Gastrointestinal: Nausea Genitourinary: No Symptoms Reported Musculoskeletal: No Symptoms Reported Skin: No Symptoms Reported Neurological: Weakness, Confusion - Physical Exam Vital Signs: Temperature 98.5 F Pulse Rate [Right Brachial] 79 Pulse Rate [Left Brachial] 80 Pulse Rate 86 Respiratory Rate 20 Blood Pressure [Left Arm] 156/67 Blood Pressure [Right Arm] 129/63 Blood Pressure 199/84 O2 Sat by Pulse Oximetry 98 Oriented: Normal Eyes: Normal Ear: Normal Nose: Normal Throat: Normal Respiratory: Diminished Throughout Cardiovascular: Normal : Normal Auscultation: Bowel Sounds: Normal Palpation: Normal Tenderness: Normal Skin: Normal Musculoskeletal: Instability Psychiatric: Normal Mood Description: Calm Affect: Normal Speech Pattern: Clear - Assessment/Plan (1) Dehydration Status: Acute Plan: ADMIT, NORMAL SALINE AT 75ML/HR, PT/OT, CONTINUE TO MONITOR (2) Generalized weakness Status: Acute (3) Altered mental status Qualifiers: Altered mental status type: transient alteration of awareness Qualified Code(s): R40.4 - Transient alteration of awareness Status: Acute - Allergies Allergies/Adverse Reactions: Allergies Allergy/AdvReac Type Severity Reaction Status Date / Time hydralazine [From Apresoline] Allergy Verified 02/23/18 14:44 metoclopramide [From Reglan] Allergy Verified 02/23/18 14:44 Penicillins Allergy Verified 02/23/18 14:44 pregabalin [From Lyrica] Allergy Verified 02/23/18 14:44
[2018-02-24] MEDS ORDERED: MAALOX or MYLANTA PO PRN (15:19)
[2018-02-24] MEDS: ASPIRIN EC 81 MG PO SCH (15:53)
[2018-02-24] MEDS ORDERED: METOPROLOL TARTRATE 12.5 MG PO SCH (21:00)
[2018-02-24] MEDS ORDERED: PAROXETINE HCL 5 MG PO SCH (21:00)
[2018-02-24] MEDS: LOPRESSOR TAB 25 MG PO SCH (21:15)
[2018-02-24] MEDS: CRESTOR TAB 10 MG PO SCH (21:15)
[2018-02-24] MEDS: ZOVIRAX PO SCH (21:15)
[2018-02-24] MEDS: TRICOR TAB 48 MG PO SCH (21:15)
[2018-02-24] MEDS: PAXIL PO SCH (21:15)
[2018-02-24] MEDS: FLEXERIL TAB 10 MG PO SCH (21:16)
[2018-02-24] MEDS: NORCO 5/325 MG TAB PO PRN (21:21)
[2018-02-25] MEDS: NS 1000 ML 1,000 ML IV SCH ×4 (01:06→20:44)
[2018-02-25 06:20] LABS: BASOPHILS # (AUTO) 0.1 X10^3/uL (0.0-0.1); BASOPHILS % (AUTO) 0.7 % (0.2-1.0); EOSINOPHILS # (AUTO) 0.1 x10^3/uL (0.0-0.2); EOSINOPHILS % (AUTO) 1.4 % (0.9-2.9); HEMATOCRIT 37.7 % (36.0-47.0); HEMOGLOBIN 12.4 g/dL (12.0-16.0); LYMPHOCYTES # (AUTO) 1.9 X10^3/uL (1.3-2.9); LYMPHOCYTES % (AUTO) 23.3 % (21.0-51.0); MEAN CORPUSCULAR HEMOGLOBIN 29.3 pg (27.0-34.0); MEAN CORPUSCULAR VOLUME 88.8 fL (80.0-100.0); MEAN PLATELET VOLUME 8.8 fL (7.4-11.0); MONOCYTES # (AUTO) 0.7 x10^3/uL (0.3-0.8); MONOCYTES % (AUTO) 8.1 % (0.0-13.0); NEUTROPHILS # (AUTO) 5.4 x10^3/uL (2.2-4.8); NEUTROPHILS % (AUTO) 66.5 % (42.0-75.0); PLATELET COUNT 200 X10^3/uL (150.0-450.0); RED BLOOD COUNT 4.24 X10^6/uL (3.5-5.4); WHITE BLOOD COUNT 8.2 X10^3/uL (3.6-10.0)
[2018-02-25 06:35] LABS: ALANINE AMINOTRANSFERASE 13 Units/L (12-78); ALBUMIN 2.8 g/dL (3.4-5.0); ALKALINE PHOSPHATASE 61 Units/L (46-116); ASPARTATE AMINO TRANSFERASE 16 Units/L (15-37); BLOOD UREA NITROGEN 61 mg/dL (7-18); CALCIUM 9.7 mg/dL (8.5-10.1); CARBON DIOXIDE 17.6 mmol/L (21-32); CHLORIDE 110 mmol/L (98-107); COR CA(FOR HYPOALB) 10.7 mg/dL (8.5-10.1); CREATININE 2.65 mg/dL (0.55-1.02); SODIUM 138 mmol/L (136-145); TOTAL PROTEIN 6.3 g/dL (6.4-8.2); eGFR NON BLACK RACES 18 (>60)
[2018-02-25 07:17] VITALS: BMI 20.5
[2018-02-25] MEDS: ZESTRIL TAB 5 MG PO SCH (08:58)
[2018-02-25] MEDS: ASPIRIN EC 81 MG PO SCH (08:58)
[2018-02-25] MEDS: NORVASC TAB 5 MG PO SCH (08:58)
[2018-02-25] MEDS: PROTONIX TAB 40 MG PO SCH (08:58)
[2018-02-25] MEDS: ZOVIRAX PO SCH ×2 (08:58→20:42)
[2018-02-25] MEDS: SYNTHROID 50 mcg TAB PO SCH (08:58)
[2018-02-25] MEDS ORDERED: MAXZIDE 37.5/25 MG PO SCH (09:00)
--- NOTE | 2018-02-25 09:47 | PCM.PROG ---
Progress Note - Progress Note for Day of Date: 02/24/18 - Subjective Subjective: WAS ADMITTED FOR ALTERED MENTAL STATUS, DEHYDRATION, AND GENERALIZED WEAKNESS. TODAY, SHE IS ALERT AND ORIENTED. LYING IN BED ON MORNING ROUNDS. SHE CONTINUES WITH COMPLAINTS OF GENERALIZED WEAKNESS TODAY. ON EXAMINATION, HEART IS REGULAR IN RATE AND RHYTHM. BILATERAL LUNGS ARE NOTED WITH DIMINISHED LUNG SOUNDS THROGHOUT. ABDOMEN IS ROUND, SOFT, AND NON-TENDER WITH NORMAL BOWEL SOUNDS NOTED IN ALL QUADRANTS. HER VITALS THIS MORNING ARE 98.5-78-20-98%-163/71. LABS WERE OBTAINED. ABNORMAL LAB VALUES INCLUDE THE FOLLOWING: POTASSIUM 5.2, CHLORIDE 108, BUN 61, CREATININE 1.90, CALCIUM 10.6. SHE WAS STARTED ON NORMAL SALINE AT 75ML/HR. WE WILL CONTINUE CURRENT PLAN OF CARE TODAY AND RESUME HOME MEDICATIONS APPROPRIATE. WE WILL HAVE PHYSICAL THERAPY WORK WITH PATIENT. OTHERWISE, WE WILL FOLLOW UP WITH AM LABS AND CONTINUE TO MONITOR PATIENT. - Past Medical Family Social History Past Med/Fam/Surg Hx: No changes since H&P Allergies: Allergies hydralazine [From Apresoline] Allergy (Verified 02/23/18 14:44) metoclopramide [From Reglan] Allergy (Verified 02/23/18 14:44) Penicillins Allergy (Verified 02/23/18 14:44) pregabalin [From Lyrica] Allergy (Verified 02/23/18 14:44) - Review of Systems ROS: No change since H&P - Vital Signs and I&O's Vital Signs: Temperature 98.3 F Pulse Rate [Right Brachial] 60 Pulse Rate [Left Brachial] 80 Pulse Rate 86 Respiratory Rate 18 Blood Pressure [Left Arm] 156/67 Blood Pressure [Right Arm] 126/57 Blood Pressure 199/84 O2 Sat by Pulse Oximetry 96 Intake and Output: Intake & Output 02/22/18 02/23/18 02/24/18 02/25/18 11:59 11:59 11:59 11:59 Intake Total 510 / 510 2705 / 2705 Output Total 150 / 150 650 / 650 Balance 360 / 360 2054 - Physical Exam Oriented: Normal Eyes: Normal Ear: Normal Nose: Normal Throat: Normal Respiratory: Generalized, Diminished Cardiovascular: Normal : Normal Auscultation: Bowel Sounds: Normal Palpation: Normal Tenderness: Normal Skin: Normal Musculoskeletal: Instability Psychiatric: Normal Mood Description: Calm Affect: Normal Speech Pattern: Clear - Laboratory and Diagnostics Result Diagrams: 02/25/18 06:08 02/25/18 06:08 Labs: Laboratory WBC 8.2 X10^3/uL (3.6-10.0) 02/25/18 06:08 RBC 4.24 X10^6/uL (3.5-5.4) 02/25/18 06:08 Hgb 12.4 g/dL (12.0-16.0) 02/25/18 06:08 Hct 37.7 % (36.0-47.0) 02/25/18 06:08 MCV 88.8 fL (80.0-100.0) 02/25/18 06:08 MCH 29.3 pg (27.0-34.0) 02/25/18 06:08 MCHC 33.0 g/dL (33.0-35.0) 02/25/18 06:08 RDW 15.0 % (11.6-16.5) 02/25/18 06:08 Plt Count 200 X10^3/uL (150.0-450.0) 02/25/18 06:08 MPV 8.8 fL (7.4-11.0) 02/25/18 06:08 Neut % (Auto) 66.5 % (42.0-75.0) 02/25/18 06:08 Lymph % (Auto) 23.3 % (21.0-51.0) 02/25/18 06:08 [place] % (Auto) 8.1 % (0.0-13.0) 02/25/18 06:08 Eos % (Auto) 1.4 % (0.9-2.9) 02/25/18 06:08 Baso % (Auto) 0.7 % (0.2-1.0) 02/25/18 06:08 Neut # (Auto) 5.4 x10^3/uL (2.2-4.8) H 02/25/18 06:08 Lymph # (Auto) 1.9 X10^3/uL (1.3-2.9) 02/25/18 06:08 [place] # (Auto) 0.7 x10^3/uL (0.3-0.8) 02/25/18 06:08 Eos # (Auto) 0.1 x10^3/uL (0.0-0.2) 02/25/18 06:08 Baso # (Auto) 0.1 X10^3/uL (0.0-0.1) 02/25/18 06:08 Absolute Nucleated RBC 0.1 /100WBC 02/25/18 06:08 Sodium 138 mmol/L (136-145) 02/25/18 06:08 Corrected Sodium TNP 02/25/18 06:08 Potassium 5.0 mmol/L (3.5-5.1) 02/25/18 06:08 Chloride 110 mmol/L (98-107) H 02/25/18 06:08 Carbon Dioxide 17.6 mmol/L (21-32) L 02/25/18 06:08 BUN 61 mg/dL (7-18) H 02/25/18 06:08 Creatinine 2.65 mg/dL (0.55-1.02) H 02/25/18 06:08 Est GFR (MDRD) Af Amer 22 (>60) L 02/25/18 06:08 Est GFR (MDRD) Non-Af 18 (>60) L 02/25/18 06:08 Glucose 98 mg/dL (65-99) 02/25/18 06:08 Calcium 9.7 mg/dL (8.5-10.1) 02/25/18 06:08 Corrected Calcium 10.7 mg/dL (8.5-10.1) H 02/25/18 06:08 Total Bilirubin 0.30 mg/dL (0.2-1.0) 02/25/18 06:08 AST 16 Units/L (15-37) 02/25/18 06:08 ALT 13 Units/L (12-78) 02/25/18 06:08 Alkaline Phosphatase 61 Units/L (46-116) 02/25/18 06:08 Creatine Kinase 42 Units/L (26-192) 02/23/18 16:08 CK-MB (CK-2) 2.4 ng/mL (0-4.0) 02/23/18 16:08 CK/CKMB % Calc 5.7 % (<4) 02/23/18 16:08 Troponin I < 0.02 ng/mL (0-1.5) 02/23/18 16:08 Total Protein 6.3 g/dL (6.4-8.2) L 02/25/18 06:08 Albumin 2.8 g/dL (3.4-5.0) L 02/25/18 06:08 Globulin 3.5 g/dL (2.5-4.5) 02/25/18 06:08 Albumin/Globulin Ratio 0.8 Ratio (1.1-2.1) L 02/25/18 06:08 Specimen Type Clean catch urine 02/23/18 16:34 Urine Color Yellow (YELLOW) 02/23/18 16:34 Urine Appearance Clear (CLEAR) 02/23/18 16:34 Urine pH 5.0 (5.0 - 8.0) 02/23/18 16:34 Ur Specific [place] 1.020 (1.000-1.030) 02/23/18 16:34 Urine Protein Negative (NEGATIVE) 02/23/18 16:34 Urine Glucose (UA) Negative (NEGATIVE) 02/23/18 16:34 Urine Ketones Negative (NEGATIVE) 02/23/18 16:34 Urine Occult Blood Negative (NEGATIVE) 02/23/18 16:34 Urine Nitrite Negative (NEGATIVE) 02/23/18 16:34 Urine Bilirubin Negative (NEGATIVE) 02/23/18 16:34 Urine Urobilinogen Normal (NORMAL) 02/23/18 16:34 Ur Leukocyte Esterase 2+ (NEGATIVE) 02/23/18 16:34 Urine RBC None seen /HPF (NONE SEEN) 02/23/18 16:34 Urine WBC 3-5 /HPF (NONE SEEN) 02/23/18 16:34 Ur Squamous Epith Cells Rare /HPF (NEGATIVE) 02/23/18 16:34 Urine Bacteria Negative /HPF (NEGATIVE) 02/23/18 16:34 Urine Yeast Rare /HPF (NEGATIVE) 02/23/18 16:34 Ur Culture Indicated? No/not indicated 02/23/18 16:34 - Plan (1) Dehydration Status: Acute Plan: ADMIT, NORMAL SALINE AT 75ML/HR, PT/OT, CONTINUE TO MONITOR (2) Generalized weakness Status: Acute Plan: PHYSICAL THERAPY (3) Altered mental status Status: Acute Qualifiers: Altered mental status type: transient alteration of awareness Qualified Code(s): R40.4 - Transient alteration of awareness
--- NOTE | 2018-02-25 09:51 | PCM.PROG ---
Progress Note - Progress Note for Day of Date: 02/25/18 - Subjective Subjective: WAS ADMITTED FOR ALTERED MENTAL STATUS, DEHYDRATION, AND GENERALIZED WEAKNESS. TODAY, SHE IS ALERT AND ORIENTED. LYING IN BED ON MORNING ROUNDS. SHE CONTINUES WITH COMPLAINTS OF GENERALIZED WEAKNESS TODAY. ON EXAMINATION, HEART IS REGULAR IN RATE AND RHYTHM. BILATERAL LUNGS ARE NOTED WITH DIMINISHED LUNG SOUNDS THROGHOUT. ABDOMEN IS ROUND, SOFT, AND NON-TENDER WITH NORMAL BOWEL SOUNDS NOTED IN ALL QUADRANTS. HER VITALS THIS MORNING ARE 98.3-48-16-96%-132/67. LABS WERE OBTAINED. ABNORMAL LAB VALUES INCLUDE THE FOLLOWING: CHLORIDE 110, CARBON DIOXIDE 17.6, BUN 61, CREATININE 2.65, TOTAL PROTEIN 6.3, ALBUMIN 2.8. PATIENT REFUSED TO WORK WITH PHYSICAL THERAPY YESTERDAY DUE TO WEAKNESS. WE ENCOURAGED HER ON THE IMPORTANCE OF BEING COMPLIANT WITH THERAPY. SHE VERBALIZED UNDERSTANDING. SHE IS CURRENTLY RECEIVING NORMAL SALINE AT 75ML/HR. WE WILL INCREASE IV FLUIDS TO 100ML/HR TODAY. OTHERWISE, WE WILL FOLLOW UP WITH AM LABS AND CONTINUE TO MONITOR PATIENT. - Past Medical Family Social History Past Med/Fam/Surg Hx: No changes since H&P Allergies: Allergies hydralazine [From Apresoline] Allergy (Verified 02/23/18 14:44) metoclopramide [From Reglan] Allergy (Verified 02/23/18 14:44) Penicillins Allergy (Verified 02/23/18 14:44) pregabalin [From Lyrica] Allergy (Verified 02/23/18 14:44) - Review of Systems ROS: No change since H&P - Vital Signs and I&O's Vital Signs: Temperature 98.3 F Pulse Rate [Right Brachial] 60 Pulse Rate [Left Brachial] 80 Pulse Rate 86 Respiratory Rate 18 Blood Pressure [Left Arm] 156/67 Blood Pressure [Right Arm] 126/57 Blood Pressure 199/84 O2 Sat by Pulse Oximetry 96 Intake and Output: Intake & Output 02/22/18 02/23/18 02/24/18 02/25/18 11:59 11:59 11:59 11:59 Intake Total 510 / 510 2705 / 2705 Output Total 150 / 150 650 / 650 Balance 360 / 360 2054 - Physical Exam Oriented: Normal Eyes: Normal Ear: Normal Nose: Normal Throat: Normal Respiratory: Generalized, Diminished Cardiovascular: Normal : Normal Auscultation: Bowel Sounds: Normal Palpation: Normal Tenderness: Normal Skin: Normal Musculoskeletal: Instability Psychiatric: Normal Mood Description: Calm Affect: Normal Speech Pattern: Clear - Laboratory and Diagnostics Result Diagrams: 02/25/18 06:08 02/25/18 06:08 Labs: Laboratory WBC 8.2 X10^3/uL (3.6-10.0) 02/25/18 06:08 RBC 4.24 X10^6/uL (3.5-5.4) 02/25/18 06:08 Hgb 12.4 g/dL (12.0-16.0) 02/25/18 06:08 Hct 37.7 % (36.0-47.0) 02/25/18 06:08 MCV 88.8 fL (80.0-100.0) 02/25/18 06:08 MCH 29.3 pg (27.0-34.0) 02/25/18 06:08 MCHC 33.0 g/dL (33.0-35.0) 02/25/18 06:08 RDW 15.0 % (11.6-16.5) 02/25/18 06:08 Plt Count 200 X10^3/uL (150.0-450.0) 02/25/18 06:08 MPV 8.8 fL (7.4-11.0) 02/25/18 06:08 Neut % (Auto) 66.5 % (42.0-75.0) 02/25/18 06:08 Lymph % (Auto) 23.3 % (21.0-51.0) 02/25/18 06:08 [place] % (Auto) 8.1 % (0.0-13.0) 02/25/18 06:08 Eos % (Auto) 1.4 % (0.9-2.9) 02/25/18 06:08 Baso % (Auto) 0.7 % (0.2-1.0) 02/25/18 06:08 Neut # (Auto) 5.4 x10^3/uL (2.2-4.8) H 02/25/18 06:08 Lymph # (Auto) 1.9 X10^3/uL (1.3-2.9) 02/25/18 06:08 [place] # (Auto) 0.7 x10^3/uL (0.3-0.8) 02/25/18 06:08 Eos # (Auto) 0.1 x10^3/uL (0.0-0.2) 02/25/18 06:08 Baso # (Auto) 0.1 X10^3/uL (0.0-0.1) 02/25/18 06:08 Absolute Nucleated RBC 0.1 /100WBC 02/25/18 06:08 Sodium 138 mmol/L (136-145) 02/25/18 06:08 Corrected Sodium TNP 02/25/18 06:08 Potassium 5.0 mmol/L (3.5-5.1) 02/25/18 06:08 Chloride 110 mmol/L (98-107) H 02/25/18 06:08 Carbon Dioxide 17.6 mmol/L (21-32) L 02/25/18 06:08 BUN 61 mg/dL (7-18) H 02/25/18 06:08 Creatinine 2.65 mg/dL (0.55-1.02) H 02/25/18 06:08 Est GFR (MDRD) Af Amer 22 (>60) L 02/25/18 06:08 Est GFR (MDRD) Non-Af 18 (>60) L 02/25/18 06:08 Glucose 98 mg/dL (65-99) 02/25/18 06:08 Calcium 9.7 mg/dL (8.5-10.1) 02/25/18 06:08 Corrected Calcium 10.7 mg/dL (8.5-10.1) H 02/25/18 06:08 Total Bilirubin 0.30 mg/dL (0.2-1.0) 02/25/18 06:08 AST 16 Units/L (15-37) 02/25/18 06:08 ALT 13 Units/L (12-78) 02/25/18 06:08 Alkaline Phosphatase 61 Units/L (46-116) 02/25/18 06:08 Creatine Kinase 42 Units/L (26-192) 02/23/18 16:08 CK-MB (CK-2) 2.4 ng/mL (0-4.0) 02/23/18 16:08 CK/CKMB % Calc 5.7 % (<4) 02/23/18 16:08 Troponin I < 0.02 ng/mL (0-1.5) 02/23/18 16:08 Total Protein 6.3 g/dL (6.4-8.2) L 02/25/18 06:08 Albumin 2.8 g/dL (3.4-5.0) L 02/25/18 06:08 Globulin 3.5 g/dL (2.5-4.5) 02/25/18 06:08 Albumin/Globulin Ratio 0.8 Ratio (1.1-2.1) L 02/25/18 06:08 Specimen Type Clean catch urine 02/23/18 16:34 Urine Color Yellow (YELLOW) 02/23/18 16:34 Urine Appearance Clear (CLEAR) 02/23/18 16:34 Urine pH 5.0 (5.0 - 8.0) 02/23/18 16:34 Ur Specific [place] 1.020 (1.000-1.030) 02/23/18 16:34 Urine Protein Negative (NEGATIVE) 02/23/18 16:34 Urine Glucose (UA) Negative (NEGATIVE) 02/23/18 16:34 Urine Ketones Negative (NEGATIVE) 02/23/18 16:34 Urine Occult Blood Negative (NEGATIVE) 02/23/18 16:34 Urine Nitrite Negative (NEGATIVE) 02/23/18 16:34 Urine Bilirubin Negative (NEGATIVE) 02/23/18 16:34 Urine Urobilinogen Normal (NORMAL) 02/23/18 16:34 Ur Leukocyte Esterase 2+ (NEGATIVE) 02/23/18 16:34 Urine RBC None seen /HPF (NONE SEEN) 02/23/18 16:34 Urine WBC 3-5 /HPF (NONE SEEN) 02/23/18 16:34 Ur Squamous Epith Cells Rare /HPF (NEGATIVE) 02/23/18 16:34 Urine Bacteria Negative /HPF (NEGATIVE) 02/23/18 16:34 Urine Yeast Rare /HPF (NEGATIVE) 02/23/18 16:34 Ur Culture Indicated? No/not indicated 02/23/18 16:34 - Plan (1) Dehydration Status: Acute Plan: ADMIT, NORMAL SALINE AT 100ML/HR, PT/OT, CONTINUE TO MONITOR (2) Generalized weakness Status: Acute Plan: PHYSICAL THERAPY (3) Altered mental status Status: Acute Qualifiers: Altered mental status type: transient alteration of awareness Qualified Code(s): R40.4 - Transient alteration of awareness
[2018-02-25] MEDS: PAXIL PO SCH (20:40)
[2018-02-25] MEDS: TRICOR TAB 48 MG PO SCH (20:42)
[2018-02-25] MEDS: LOPRESSOR TAB 25 MG PO SCH (20:42)
[2018-02-25] MEDS: CRESTOR TAB 10 MG PO SCH (20:43)
[2018-02-25] MEDS: FLEXERIL TAB 10 MG PO SCH (20:44)
[2018-02-26] MEDS: NS 1000 ML 1,000 ML IV SCH ×3 (04:38→20:37)
[2018-02-26 05:23] LABS: BASOPHILS % (AUTO) 0.4 % (0.2-1.0); EOSINOPHILS # (AUTO) 0.1 x10^3/uL (0.0-0.2); EOSINOPHILS % (AUTO) 1.7 % (0.9-2.9); HEMATOCRIT 31.8 % (36.0-47.0); HEMOGLOBIN 10.8 g/dL (12.0-16.0); LYMPHOCYTES # (AUTO) 1.7 X10^3/uL (1.3-2.9); LYMPHOCYTES % (AUTO) 28.6 % (21.0-51.0); MEAN CORPUSCULAR HEMOGLOBIN 29.6 pg (27.0-34.0); MEAN PLATELET VOLUME 9.6 fL (7.4-11.0); MONOCYTES # (AUTO) 0.5 x10^3/uL (0.3-0.8); MONOCYTES % (AUTO) 7.9 % (0.0-13.0); NEUTROPHILS # (AUTO) 3.6 x10^3/uL (2.2-4.8); NEUTROPHILS % (AUTO) 61.4 % (42.0-75.0); PLATELET COUNT 145 X10^3/uL (150.0-450.0); RED BLOOD COUNT 3.66 X10^6/uL (3.5-5.4); RED CELL DISTRIBUTION WIDTH 14.6 % (11.6-16.5); WHITE BLOOD COUNT 5.9 X10^3/uL (3.6-10.0)
[2018-02-26 05:38] LABS: ALANINE AMINOTRANSFERASE 13 Units/L (12-78); ALBUMIN 2.7 g/dL (3.4-5.0); ALKALINE PHOSPHATASE 61 Units/L (46-116); ASPARTATE AMINO TRANSFERASE 13 Units/L (15-37); BLOOD UREA NITROGEN 53 mg/dL (7-18); CALCIUM 9.3 mg/dL (8.5-10.1); CARBON DIOXIDE 18.5 mmol/L (21-32); CHLORIDE 112 mmol/L (98-107); COR CA(FOR HYPOALB) 10.3 mg/dL (8.5-10.1); CREATININE 2.17 mg/dL (0.55-1.02); SODIUM 141 mmol/L (136-145); TOTAL PROTEIN 5.8 g/dL (6.4-8.2); eGFR NON BLACK RACES 23 (>60)
[2018-02-26] MEDS: ASPIRIN EC 81 MG PO SCH (09:13)
[2018-02-26] MEDS: PROTONIX TAB 40 MG PO SCH (09:13)
[2018-02-26] MEDS: ZESTRIL TAB 5 MG PO SCH (09:13)
[2018-02-26] MEDS: SYNTHROID 50 mcg TAB PO SCH (09:14)
[2018-02-26] MEDS: ZOVIRAX PO SCH (09:14)
[2018-02-26] MEDS: NORVASC TAB 5 MG PO SCH (09:14)
--- NOTE | 2018-02-26 09:56 | PCM.PROG ---
Progress Note - Progress Note for Day of Date: 02/26/18 - Subjective Subjective: WAS ADMITTED FOR ALTERED MENTAL STATUS, DEHYDRATION, AND GENERALIZED WEAKNESS. TODAY, SHE IS ALERT AND ORIENTED, SITTING UP IN CHAIR ON MORNING ROUNDS. SHE CONTINUES WITH COMPLAINTS OF GENERALIZED WEAKNESS TODAY. SHE IS CURRENTLY WORKING WITH PHYSICAL THERAPY. ON EXAMINATION, HEART IS REGULAR IN RATE AND RHYTHM. BILATERAL LUNGS ARE NOTED WITH DIMINISHED LUNG SOUNDS THROGHOUT. ABDOMEN IS ROUND, SOFT, AND NON-TENDER WITH NORMAL BOWEL SOUNDS NOTED IN ALL QUADRANTS. HER VITALS THIS MORNING ARE 97.4-46-20-98%-149/ 72. LABS WERE OBTAINED. ABNORMAL LAB VALUES INCLUDE THE FOLLOWING: HGB 10.8, HCT 31.8, PLT COUNT 145, CHLORIDE 112, CARBON DIOXIDE 18.5, BUN 53, CREATININE 2.7, AST 13, TOTAL PROTEIN 5.7, ALBUMIN 2.7. SHE IS CURRENTLY RECEIVING NORMAL SALINE AT 100ML/HR. WE WILL CONTINUE WITH CURRENT PLAN OF CARE TODAY. OTHERWISE , WE WILL FOLLOW UP WITH AM LABS AND CONTINUE TO MONITOR PATIENT. - Past Medical Family Social History Past Med/Fam/Surg Hx: No changes since H&P Allergies: Allergies hydralazine [From Apresoline] Allergy (Verified 02/23/18 14:44) metoclopramide [From Reglan] Allergy (Verified 02/23/18 14:44) Penicillins Allergy (Verified 02/23/18 14:44) pregabalin [From Lyrica] Allergy (Verified 02/23/18 14:44) - Review of Systems ROS: No change since H&P - Vital Signs and I&O's Vital Signs: Temperature 97.4 F Pulse Rate [Right Brachial] 46 Pulse Rate [Left Brachial] 80 Pulse Rate 86 Respiratory Rate 20 Blood Pressure [Left Arm] 156/67 Blood Pressure [Right Arm] 149/72 Blood Pressure 199/84 O2 Sat by Pulse Oximetry 98 Intake and Output: Intake & Output 02/23/18 02/24/18 02/25/18 02/26/18 11:59 11:59 11:59 11:59 Intake Total 510 / 510 2705 / 2705 2029 Output Total 150 / 150 650 / 650 Balance 360 / 360 2054 - Physical Exam Oriented: Normal Eyes: Normal Ear: Normal Nose: Normal Throat: Normal Respiratory: Generalized, Diminished Cardiovascular: Normal : Normal Auscultation: Bowel Sounds: Normal Palpation: Normal Tenderness: Normal Skin: Normal Musculoskeletal: Instability Psychiatric: Normal Mood Description: Calm Affect: Normal Speech Pattern: Clear, Appropriate - Laboratory and Diagnostics Result Diagrams: 02/26/18 04:40 02/26/18 04:40 Labs: Laboratory WBC 5.9 X10^3/uL (3.6-10.0) 02/26/18 04:40 RBC 3.66 X10^6/uL (3.5-5.4) 02/26/18 04:40 Hgb 10.8 g/dL (12.0-16.0) L 02/26/18 04:40 Hct 31.8 % (36.0-47.0) L 02/26/18 04:40 MCV 87.0 fL (80.0-100.0) 02/26/18 04:40 MCH 29.6 pg (27.0-34.0) 02/26/18 04:40 MCHC 34.0 g/dL (33.0-35.0) 02/26/18 04:40 RDW 14.6 % (11.6-16.5) 02/26/18 04:40 Plt Count 145 X10^3/uL (150.0-450.0) L 02/26/18 04:40 MPV 9.6 fL (7.4-11.0) 02/26/18 04:40 Neut % (Auto) 61.4 % (42.0-75.0) 02/26/18 04:40 Lymph % (Auto) 28.6 % (21.0-51.0) 02/26/18 04:40 [place] % (Auto) 7.9 % (0.0-13.0) 02/26/18 04:40 Eos % (Auto) 1.7 % (0.9-2.9) 02/26/18 04:40 Baso % (Auto) 0.4 % (0.2-1.0) 02/26/18 04:40 Neut # (Auto) 3.6 x10^3/uL (2.2-4.8) 02/26/18 04:40 Lymph # (Auto) 1.7 X10^3/uL (1.3-2.9) 02/26/18 04:40 [place] # (Auto) 0.5 x10^3/uL (0.3-0.8) 02/26/18 04:40 Eos # (Auto) 0.1 x10^3/uL (0.0-0.2) 02/26/18 04:40 Baso # (Auto) 0.0 X10^3/uL (0.0-0.1) 02/26/18 04:40 Absolute Nucleated RBC 0.1 /100WBC 02/26/18 04:40 Sodium 141 mmol/L (136-145) 02/26/18 04:40 Corrected Sodium TNP 02/26/18 04:40 Potassium 4.7 mmol/L (3.5-5.1) 02/26/18 04:40 Chloride 112 mmol/L (98-107) H 02/26/18 04:40 Carbon Dioxide 18.5 mmol/L (21-32) L 02/26/18 04:40 BUN 53 mg/dL (7-18) H 02/26/18 04:40 Creatinine 2.17 mg/dL (0.55-1.02) H 02/26/18 04:40 Est GFR (MDRD) Af Amer 27 (>60) L 02/26/18 04:40 Est GFR (MDRD) Non-Af 23 (>60) L 02/26/18 04:40 Glucose 99 mg/dL (65-99) 02/26/18 04:40 Calcium 9.3 mg/dL (8.5-10.1) 02/26/18 04:40 Corrected Calcium 10.3 mg/dL (8.5-10.1) H 02/26/18 04:40 Total Bilirubin 0.20 mg/dL (0.2-1.0) 02/26/18 04:40 AST 13 Units/L (15-37) L 02/26/18 04:40 ALT 13 Units/L (12-78) 02/26/18 04:40 Alkaline Phosphatase 61 Units/L (46-116) 02/26/18 04:40 Creatine Kinase 42 Units/L (26-192) 02/23/18 16:08 CK-MB (CK-2) 2.4 ng/mL (0-4.0) 02/23/18 16:08 CK/CKMB % Calc 5.7 % (<4) 02/23/18 16:08 Troponin I < 0.02 ng/mL (0-1.5) 02/23/18 16:08 Total Protein 5.8 g/dL (6.4-8.2) L 02/26/18 04:40 Albumin 2.7 g/dL (3.4-5.0) L 02/26/18 04:40 Globulin 3.1 g/dL (2.5-4.5) 02/26/18 04:40 Albumin/Globulin Ratio 0.9 Ratio (1.1-2.1) L 02/26/18 04:40 Specimen Type Clean catch urine 02/23/18 16:34 Urine Color Yellow (YELLOW) 02/23/18 16:34 Urine Appearance Clear (CLEAR) 02/23/18 16:34 Urine pH 5.0 (5.0 - 8.0) 02/23/18 16:34 Ur Specific [place] 1.020 (1.000-1.030) 02/23/18 16:34 Urine Protein Negative (NEGATIVE) 02/23/18 16:34 Urine Glucose (UA) Negative (NEGATIVE) 02/23/18 16:34 Urine Ketones Negative (NEGATIVE) 02/23/18 16:34 Urine Occult Blood Negative (NEGATIVE) 02/23/18 16:34 Urine Nitrite Negative (NEGATIVE) 02/23/18 16:34 Urine Bilirubin Negative (NEGATIVE) 02/23/18 16:34 Urine Urobilinogen Normal (NORMAL) 02/23/18 16:34 Ur Leukocyte Esterase 2+ (NEGATIVE) 02/23/18 16:34 Urine RBC None seen /HPF (NONE SEEN) 02/23/18 16:34 Urine WBC 3-5 /HPF (NONE SEEN) 02/23/18 16:34 Ur Squamous Epith Cells Rare /HPF (NEGATIVE) 02/23/18 16:34 Urine Bacteria Negative /HPF (NEGATIVE) 02/23/18 16:34 Urine Yeast Rare /HPF (NEGATIVE) 02/23/18 16:34 Ur Culture Indicated? No/not indicated 02/23/18 16:34 - Plan (1) Dehydration Status: Acute Plan: ADMIT, NORMAL SALINE AT 100ML/HR, PT/OT, CONTINUE TO MONITOR (2) Generalized weakness Status: Acute Plan: PHYSICAL THERAPY (3) Altered mental status Status: Acute Qualifiers: Altered mental status type: transient alteration of awareness Qualified Code(s): R40.4 - Transient alteration of awareness
[2018-02-26] MEDS: LOPRESSOR TAB 25 MG PO SCH (20:38)
[2018-02-26] MEDS: PAXIL PO SCH (20:39)
[2018-02-26] MEDS: TRICOR TAB 48 MG PO SCH (20:39)
[2018-02-26] MEDS: CRESTOR TAB 10 MG PO SCH (20:40)
[2018-02-26] MEDS: FLEXERIL TAB 10 MG PO SCH (20:40)
[2018-02-27] MEDS: NS 1000 ML 1,000 ML IV SCH ×3 (04:16→04:18)
[2018-02-27] MEDS: NORCO 5/325 MG TAB PO PRN (04:18)
[2018-02-27 05:49] LABS: BASOPHILS % (AUTO) 0.5 % (0.2-1.0); EOSINOPHILS # (AUTO) 0.2 x10^3/uL (0.0-0.2); HEMATOCRIT 29.3 % (36.0-47.0); HEMOGLOBIN 10.1 g/dL (12.0-16.0); LYMPHOCYTES # (AUTO) 1.9 X10^3/uL (1.3-2.9); LYMPHOCYTES % (AUTO) 35.6 % (21.0-51.0); MEAN CORPUSCULAR HEMOGLOBIN 29.9 pg (27.0-34.0); MEAN CORPUSCULAR HGB CONC 34.5 g/dL (33.0-35.0); MEAN CORPUSCULAR VOLUME 86.4 fL (80.0-100.0); MEAN PLATELET VOLUME 9.2 fL (7.4-11.0); MONOCYTES # (AUTO) 0.5 x10^3/uL (0.3-0.8); MONOCYTES % (AUTO) 8.6 % (0.0-13.0); NEUTROPHILS # (AUTO) 2.8 x10^3/uL (2.2-4.8); NEUTROPHILS % (AUTO) 52.3 % (42.0-75.0); PLATELET COUNT 148 X10^3/uL (150.0-450.0); RED BLOOD COUNT 3.39 X10^6/uL (3.5-5.4); RED CELL DISTRIBUTION WIDTH 14.4 % (11.6-16.5); WHITE BLOOD COUNT 5.4 X10^3/uL (3.6-10.0)
[2018-02-27 06:05] LABS: ALANINE AMINOTRANSFERASE 11 Units/L (12-78); ALBUMIN 2.3 g/dL (3.4-5.0); ALKALINE PHOSPHATASE 56 Units/L (46-116); ASPARTATE AMINO TRANSFERASE 13 Units/L (15-37); BLOOD UREA NITROGEN 37 mg/dL (7-18); CALCIUM 8.6 mg/dL (8.5-10.1); CARBON DIOXIDE 17.4 mmol/L (21-32); SODIUM 143 mmol/L (136-145); TOTAL PROTEIN 5.4 g/dL (6.4-8.2); eGFR NON BLACK RACES 32 (>60)
[2018-02-27 06:07] LABS: CHLORIDE 116 mmol/L (98-107)
[2018-02-27] MEDS: ASPIRIN EC 81 MG PO SCH (08:25)
[2018-02-27] MEDS: NORVASC TAB 5 MG PO SCH (08:25)
[2018-02-27] MEDS: SYNTHROID 50 mcg TAB PO SCH (08:25)
[2018-02-27] MEDS: PROTONIX TAB 40 MG PO SCH (08:25)
[2018-02-27] MEDS: ZESTRIL TAB 5 MG PO SCH (08:25)
[2018-02-27 14:08] VITALS: BP 169/81
--- NOTE | 2018-03-24 | DR.CARTERD ---
- Discharge Summary for: Discharge Summary for Date of:: 02/27/18 - Admission Date Date of Admission: 02/23/18 - Admission Diagnoses Admission Diagnosis: (1) Dehydration (2) Generalized weakness (3) Altered mental status - Discharge Date Discharge Date: 02/27/18 - Discharge Diagnoses Discharge Diagnosis: (1) Dehydration (2) Generalized weakness (3) Altered mental status - Hospital Course Hospital Course: Day one, Ms. Mishra is a 87 year old patient of ours who presented to the emergency room via EMS with reports of decrease in mental status and weakness. Patient's grandson stated patient was working with physical therapy and became increasingly confused. Associated symptoms included decreased appetite and nausea. On arrival, vitals were 98.6, 86, 17, 99% RA, 199/84. Labs were obtained. Abnormal lab values included the following: Abnormal Labs: Sodium 146 , Corrected Sodium 148, Potassium 5.4, Chloride 113, BUN 62, Creatinine 2.11, GFR af 28, GFR non 23, Glucose 170, Calcium 11.5, Total Protein 8.4, A/G Ratio 0.9. Patient noted with a baseline BUN/creatinine of 10 and 1.00. Urinalysis revealed: Leuk Est 2+, WBC 3-5, Yeast Rare. A chest xray was obtained and revealed: No acute cardiac, pulmonary or pleural lesion demonstrated. Interval surgical procedure left humerus. EKG revealed: Sinus Rhythm. Rate=79. A brain CT was obtained and revealed: Age related atrophic changes are present. However there is no evidence of intracranial hemorrhage, extracerebral fluid collections , or intracranial mass. 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 Patchy low density is present in a periventricular white matter distribution, consistent with chronic small vessel ischemic change. Ventricles are symmetric in size and position with no mass effect seen. On the bone windows, no acute abnormality is identified. Visualized aspect of the paranasal sinuses and mastoid air cells are clear. Patient admitted to the hospital with dehydration and pre-renal azotemia. We continued to monitor. Day two, patient was alert and oriented. She continued with complaints of generalized weakness. Vitals were: 98.5-78-20-98%-163/71. Abnormal labs included : Potassium 5.2, Chloride 108, BUN 61, Creat 1.90, Calcium 10.6. She was started on normal saline at 75mls/hr. We continued with treatment and resumed home medications. We continued physical therapy and monitored. Day three, patient continued with complaints of generalized weakness. Vitals were 98.3-48-16-96%-132/67. Abnormal labs included: Chloride 110, Carbon Dioxide 17.6, BUN 61, Creat 2.65, Total Protein 6.3, Albumin 2.8. Patient refused to work with physical therapy the day before due to weakness. We encouraged her on the importance of being compliant with therapy. She voiced understanding. We increased IV fluids to 100mls/hr. Day four, patient was alert and oriented, sitting up in chair upon rounds. She continued with generalized weakness. She was working with physical therapy upon rounds. Vitals stable. Abnormal labs included: HGB 10.8, HCT 31.8, PLT Count 145, Chloride 112, Carbon Dioxide 18.5, BUN 53, Creat 2.7, AST 13, Total Protein 5.7, Albumin 2.7. We continued to monitor. Day five, patient reported she was feeling better. Patient was doing well with physical therapy. Vitals stable. Labs wnl. We planned for discharge. Instructions for medications and follow up were discussed with patient and family, both voiced understanding. Patient discharged home in stable condition with family. - Discharge Medications Discharge Medications: Home Medication List cyclobenzaprine 1 tab PO HS 02/23/18 [History] meclizine 1 tab PO TID PRN 02/23/18 [History] cholestyramine-[place] [Cholestyramine Light] 1 scoop/day PO BID 02/24/18 [ History] amlodipine 10 mg PO DAILY #30 tab 02/27/18 [Rx] Prescriptions: amlodipine Hernandez Goldman Metoprolol Tartrate [Lopressor] 12.5 mg PO HS 07/29/15 Paroxetine HCl [Paxil] 5 mg PO HS 07/29/15 levothyroxine 1 tab PO DAILY 07/29/15 rosuvastatin [Crestor] 10 mg PO HS 07/29/15 fenofibrate nanocrystallized 1 tab PO HS 10/16/17 pantoprazole 1 tab PO DAILY 10/16/17 hydrocodone-acetaminophen 1 tab PO Q6H PRN #60 tab 01/23/18 ondansetron [Zofran ODT] 4 mg PO Q8H PRN #12 tab 01/23/18 amlodipine 5 mg PO HS 02/05/18 lisinopril 5 mg PO DAILY 02/05/18 triamterene-hydrochlorothiazid [Dyazide] 1 cap PO QAM 02/05/18 - Discharge Disposition Discharge Disposition: Patient is to follow up in our office in one week.
== END 2018-02-27 12:35 | disposition home or self-care (01) | DRG 641 ==
LOC: ER 14:40 → MED/SURG 19:02
PROVIDERS: ADMIT Internal Medicine; ATTEND Internal Medicine
DX: I10 Essential (primary) hypertension; E86.0 Dehydration; K21.9 Gastro-esophageal reflux disease without esophagitis; R40.4 Transient alteration of awareness; R94.31 Abnormal electrocardiogram [ECG] [EKG]; R79.89 Other specified abnormal findings of blood chemistry; R26.89 Other abnormalities of gait and mobility; E03.8 Other specified hypothyroidism; R53.1 Weakness; I25.10 Atherosclerotic heart disease of native coronary artery without angina pectoris; E78.2 Mixed hyperlipidemia
CPT/HCPCS: 36415; 70450; 71010; 71045; 80053; 81001; 82550; 82553; 84484; 85025; 93005; 94760; 96365; 97110; 97116; 97162; 97165; 97535; 99284; A4216; A4222; J2405; J7030